=== PATIENT | female | born 1955 | race Caucasian/White ===

== ENCOUNTER 2019-11-02 12:09 | Emergency (ER) | payer MEDICARE, SELFPAY ==
--- NOTE | ~2019-11-02 | CT_ITS ---
EXAMINATION: CT abdomen pelvis w con EXAM DATE: 11/02/2019 13:08 INDICATION: Low abdominal pain. TECHNIQUE: Spiral CT of the abdomen and pelvis was performed following intravenous injection of 100 m L Omnipaque 350. Axial, coronal and sagittal images were reviewed. The dose-length product (DLP) fo r this examination was 176.49 mGy-cm. The exposure was tailored according to patient size (auto mA e xposure control), and iterative reconstruction (ASIR) was used as additional dose reduction technique . Comparison is made to prior examination from 04/28/2019. FINDINGS: There is subcentimeter left adrenal nodule likely adenoma. The liver, spleen, adrenal glan ds and pancreas are otherwise unremarkable. Gallbladder is unremarkable. No biliary obstruction. P ortal and splenic veins are patent. Kidneys enhance symmetrically. There is no hydronephrosis. Th e uterus is not identified and has likely been surgically resected. The bladder is unremarkable. Th ere is no retroperitoneal or pelvic lymphadenopathy. There is moderate scattered arteriosclerotic d isease. The appendix is normal. The stomach and small bowel are unremarkable. There is mild sigmoid colonic diverticulosis. There is no adjacent inflammatory change to suggest diverticulitis. There is expecte d amount of colonic stool. No free intraperitoneal gas. The heart is normal in size. There are n o pericardial or pleural effusions. Mild to moderate emphysema. There are no osteoblastic or osteol ytic lesions identified. IMPRESSION: 1. No acute intra-abdominal findings. Reviewed, dictated and finalized at location A.
[2019-11-02 12:13] VITALS: BP 164/83; PULSE 81; RESP 20; TEMP 37.3; O2SAT 97
--- NOTE | 2019-11-02 12:37 | ED.ABDPAIN ---
HPI - Abdominal Pain General Chief Complaint: Abdominal Pain <Justo Joseph PA-C - Last Filed: 11/02/19 14:09> Stated Complaint: abdominal pain x 4 days <Justo Joseph PA-C - Last Filed: 11/02/19 14:09> Time Seen by Provider: 11/02/19 12:10 <JORDAN Benavides Last Filed: 11/02/19 14:09> Source: patient <JORDAN Benavides Last Filed: 11/02/19 14:09> Mode of arrival: ambulatory <JORDAN Benavides Last Filed: 11/02/19 14:09> Limitations: no limitations <JORDAN Benavides Last Filed: 11/02/19 14:09> History of Present Illness HPI narrative: Patient is a 64-year-old female who presents to emergency department for evaluation of abdominal pain has been present for 3 weeks as a sharp intermittent cramping pain throughout is seen primary care and gastroenterology for this prescribed medicine for irritable bowel syndrome with no improvement nausea vomiting and on arrival is in the room. <Justo Joseph PA-C - Last Filed: 11/02/19 14:09> Related Data Home Medications: Home Medications Medication Instructions Recorded Confirmed atorvastatin 20 mg tablet 20 mg PO DAILY 05/15/19 <JORDAN Benavides Last Filed: 11/02/19 14:09> Allergies/Adverse Reactions: Allergies Allergy/AdvReac Type Severity Reaction Status Date / Time acetaminophen Allergy Nausea Verified 10/27/19 09:16 [From Darvocet-N] codeine Allergy Nausea Verified 10/27/19 09:16 gabapentin Allergy Loss of Verified 10/27/19 09:16 Balance propoxyphene Allergy Nausea Verified 10/27/19 09:16 [From Darvocet-N] <JORDAN Benavides Last Filed: 11/02/19 14:09> Review of Systems Review of Systems: All systems reviewed & are unremarkable except as noted in HPI and below <Justo Joseph PA-C - Last Filed: 11/02/19 14:09> PMFSH Past Medical History Medical History: Medical History Anxiety Arthritis 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 Bipolar 1 disorder Cataracts, bilateral Not yet extracted Chronic pancreatitis Chronic UTI Constipation COPD (chronic obstructive pulmonary disease) Depression Diverticulitis large intestine Emphysema, unspecified GERD (gastroesophageal reflux disease) Hepatitis C She stated was treated with injections History of alcohol dependence History of heroin abuse History of heroin abuse Hx of hepatitis C Hypercholesteremia Hypertension Pancreatitis PVD (peripheral vascular disease) SBO (small bowel obstruction) Schizo affective schizophrenia Seizures Due to abrupt withdrawal of clonazepam Tobacco dependence <Justo Joseph PA-C - Last Filed: 11/02/19 14:09> Surgical History Surgical History: Surgical History H/O laparoscopy History of colectomy With adhesiolysis History of colon resection History of hysterectomy Hx of hysterectomy Hx of tubal ligation <Justo Joseph PA-C - Last Filed: 11/02/19 14:09> Family History Family History: Family History (System 05/21/19 @ 16:37 by Katty Brownlee) Mother Carcinoma of colon Father Diabetes mellitus Cerebrovascular accident Father Family history of diabetes mellitus in first degree relative Hypertension Cerebrovascular accident Mother Family history of diabetes mellitus in first degree relative Colon polyp Carcinoma of colon Sibling Hypertension <Justo Joseph PA-C - Last Filed: 11/02/19 14:09> Social History Social History: Social History Social History: The patient stated that she is down to about 4 5 cigarettes a day. Patient stated she continues to smoke marijuana but is not on a daily basis anymore like it used to be. She denies any alcohol. She is to use heroin when she was younger. The patient was wi
[2019-11-02 12:38] LABS: Basophils Percent Auto 0.5 % (0.2-1.2); Eosinophils Absolute Auto 0.2 K/mm3 (0-0.3); Eosinophils Percent Auto 2.6 % (0-4.4); Hematocrit 39.4 % (37.0-47.0); Hemoglobin 12.8 g/dL (12.0-15.0); Immature Granulocyte Absolute 0.03 K/mm3 (0.00-0.031); Immature Granulocyte Percent A 0.4 % (0-0.5); Lymphocytes Absolute Auto 1.43 K/mm3 (0.9-3.2); Lymphocytes Percent Auto 17.9 % (18.3-44.2); Mean Corpuscular HGB Conc 32.5 g/dl (32-36); Mean Corpuscular Hemoglobin 27.3 pg (26-34); Mean Platelet Volume 10.7 fl (7.4-10.4); Monocytes Absolute Auto 0.7 K/mm3 (0.1-0.6); Monocytes Percent Auto 9.2 % (2.6-8.5); Neutrophils Absolute Auto 5.6 K/mm3 (1.3-6.7); Neutrophils Percent Auto 69.4 % (45.5-73.1); Platelet Count Result 223 k/mm3 (150-375); Red Blood Count 4.69 M/mm3 (4.2-5.4); Red Cell Distribution Width 13.6 % (11.5-14.5)
[2019-11-02] MEDS: SODIUM CHLORIDE 0.9% IV 1,000 ML 999 ML IV CONT (12:50)
[2019-11-02 12:51] LABS: Add Urine Microscopic? YES; Appearance Urine Clear (Clear); Bilirubin Urine Negative (Negative); Blood Urine Negative (Negative); Color Urine Straw (Yellow); Glucose Urine UA Negative (Negative); Ketones Urine Negative (Negative); Leukocyte Esterase Ur Trace LEU/UL (Negative); Mucus Urine Rare /lpf; Nitrate Urine Negative (Negative); Protein Urine Negative (Negative); Specific Grav Ur 1.012 (1.001-1.035); Squamous Epithelial Cell Urine Few /hpf (Few); Urobilinogen Urine Negative mg/dL (<2.0); WBC Urine 0-3 /hpf
[2019-11-02 12:52] LABS: Alanine Aminotransferase 15 U/L (4-35); Albumin Level 4.4 g/dL (3.5-5.1); Alkaline Phosphatase 72 U/L (38-126); Aspartate Amino Transferase 25 U/L (14-36); Bilirubin,Total 0.5 mg/dL (0.2-1.3); Blood Urea Nitrogen 19 mg/dL (7-17); Calcium 9.6 mg/dL (8.4-10.2); Carbon Dioxide 25 mmol/L (22-30); Chloride 101 mmol/L (98-107); Estimated CRCL calculation 49 ml/min; Estimated Glomerular Filt Rate > 60; Glucose 119 mg/dL (65-105); Lipase 56 U/L (23-300); Potassium 4.1 mmol/L (3.4-5.0); Sodium 134 mmol/L (137-145)
[2019-11-02] MEDS: FAMOTIDINE 20 MG/2 ML VIAL IV PUSH (12:54)
[2019-11-02 17:09] VITALS: BP 129/98; PULSE 73; RESP 20; TEMP 37.2; O2SAT 100
== END 2019-11-02 14:51 | disposition home or self-care (01) ==
PROVIDERS: Emergency Medicine Emergency Medical Services; Emergency Provider Emergency Medicine; PCP Family Medicine
DX: R10.9 Unspecified abdominal pain (principal); I10 Essential (primary) hypertension; M19.90 Unspecified osteoarthritis, unspecified site; J43.9 Emphysema, unspecified; K21.9 Gastro-esophageal reflux disease without esophagitis; Z86.19 Personal history of other infectious and parasitic diseases; E78.00 Pure hypercholesterolemia, unspecified; I73.9 Peripheral vascular disease, unspecified; F31.9 Bipolar disorder, unspecified; F41.9 Anxiety disorder, unspecified; H26.9 Unspecified cataract; F20.9 Schizophrenia, unspecified; F17.210 Nicotine dependence, cigarettes, uncomplicated; K86.1 Other chronic pancreatitis; Z90.49 Acquired absence of other specified parts of digestive tract
CPT/HCPCS: 36415; 74177; 80053; 81001; 83690; 85025; 96361; 96374; 96375; 99284; J2060; J7030; Q9967

== ENCOUNTER 2019-11-12 11:53 | Emergency (ER) | payer MEDICARE, SELFPAY ==
[2019-11-12 12:17] VITALS: BP 122/66; PULSE 85; RESP 16; TEMP 36.6; O2SAT 99
--- NOTE | 2019-11-12 12:53 | ED.GENADULT ---
HPI - General Adult General Chief complaint: Urogenital-Female Stated complaint: Abd pain; lower back pain Time Seen by Provider: 11/12/19 12:53 Source: patient and RN notes reviewed Mode of arrival: ambulatory Limitations: no limitations History of Present Illness HPI narrative: This is a 64 years old female presented office for evaluation lower abdominal pain and pressure for a few weeks. Pain is continue to get worse with foul odor. She called the on-call nurse line who prop her to come into urgent care to rule out kidney infection; while she is waiting to get a referral to see Urologist. I reviewed patient's recent visit at the ER: 11/02/2019. History of Present Illness HPI narrative: Patient is a 64-year-old female who presents to emergency department for evaluation of abdominal pain has been present for 3 weeks as a sharp intermittent cramping pain throughout is seen primary care and gastroenterology for this prescribed medicine for irritable bowel syndrome with no improvement nausea vomiting and on arrival is in the room. Related Data Home Medications Medication Instructions Recorded Confirmed atorvastatin [Lipitor] 20 mg PO DAILY 11/12/19 11/12/19 duloxetine [Cymbalta] 30 mg PO DAILY 11/12/19 11/12/19 famotidine [Pepcid] 20 mg PO BID 11/12/19 11/12/19 hydrochlorothiazide 12.5 mg PO DAILY 11/12/19 11/12/19 losartan 25 mg PO DAILY 11/12/19 11/12/19 melatonin 10 mg PO HS 11/12/19 11/12/19 naproxen [Naprosyn] 500 mg PO BID 11/12/19 11/12/19 trazodone 50 mg PO HS 11/12/19 11/12/19 Allergies Allergy/AdvReac Type Severity Reaction Status Date / Time acetaminophen Allergy Nausea Verified 11/12/19 12:36 [From Darvocet-N] codeine Allergy Nausea Verified 11/12/19 12:36 gabapentin Allergy Loss of Verified 11/12/19 12:36 Balance propoxyphene Allergy Nausea Verified 11/12/19 12:36 [From Darvocet-N] Review of Systems Review of Systems: Narrative: CONSTITUTIONAL: Denies fever ENT: Denies congestion CARDIOVASCULAR: Denies chest pain RESPIRATORY: Denies dyspnea GASTROINTESTINAL: Denies nausea, vomiting, diarrhea. Reports lower abdominal pain GENITOURINARY: Denies urinary symptoms or discharge. Reports foul odor. SKIN: Denies rash MUSCULOSKELETAL: Reports lower back pain NEUROLOGIC: Denies lightheaded All other systems reviewed are negative, except as documented in HPI. [facility] Past Medical History Medical History Anxiety Arthritis 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 Bipolar 1 disorder Cataracts, bilateral Not yet extracted Chronic pancreatitis Chronic UTI Constipation COPD (chronic obstructive pulmonary disease) Depression Diverticulitis large intestine Emphysema, unspecified GERD (gastroesophageal reflux disease) Hepatitis C She stated was treated with injections History of alcohol dependence History of heroin abuse History of heroin abuse Hx of hepatitis C Hypercholesteremia Hypertension Pancreatitis PVD (peripheral vascular disease) SBO (small bowel obstruction) Schizo affective schizophrenia Seizures Due to abrupt withdrawal of clonazepam Tobacco dependence Surgical History Surgical History H/O laparoscopy History of colectomy With adhesiolysis History of colon resection History of hysterectomy Hx of hysterectomy Hx of tubal ligation Family History Family History Mother Carcinoma of colon Father Diabetes mellitus Cerebrovascular accident Father Family history of diabetes mellitus in first degree relative Hypertension Cerebrovascular accident Mother Family history of diabetes mellitus in first degree relative Colon polyp Carcinoma of colon Sibling Hypertension Social History Social History Social History:
== END 2019-11-12 13:13 | disposition home or self-care (01) ==
PROVIDERS: Emergency Provider Nurse Practitioner
DX: R82.998 Other abnormal findings in urine (principal); F17.210 Nicotine dependence, cigarettes, uncomplicated; M19.90 Unspecified osteoarthritis, unspecified site; J44.9 Chronic obstructive pulmonary disease, unspecified; F32.9 Major depressive disorder, single episode, unspecified; K21.9 Gastro-esophageal reflux disease without esophagitis; Z86.19 Personal history of other infectious and parasitic diseases; E78.00 Pure hypercholesterolemia, unspecified; I10 Essential (primary) hypertension; I73.9 Peripheral vascular disease, unspecified
CPT/HCPCS: 81003; 87086; 87088; 87661; 99213; G0463

== ENCOUNTER 2020-01-18 14:18 | Emergency (ER) | payer MEDICARE, SELFPAY ==
--- NOTE | ~2020-01-18 | CT_ITS ---
EXAMINATION: CT abdomen pelvis w con DATE: 01/18/2020 15:36 INDICATION: Abdominal pain. TECHNIQUE: Computed tomography (CT) of the abdomen and pelvis was performed with 100 mL Omnipaque 350 intravenous contrast. Automated exposure control and iterative reconstruction technique were employe d. The dose-length product was 203.47 mGy-cm. COMPARISON: CT abdomen and pelvis 11/02/2019 FINDINGS: The visualized portions of the lung bases demonstrate emphysema and mild atelectasis. No pl eural effusion. The heart size is normal. No pericardial effusion. The liver, gallbladder, spleen, an d adrenal glands are normal. There are calcifications in the pancreas, consistent with chronic pancre atitis. There are cysts in the kidneys measuring up to 11 mm on the right. There is cortical thinning of the kidneys. There is diverticulosis of the colon without evidence of diverticulitis. There are n o dilated loops of bowel. The appendix is normal. There is calcified atherosclerosis of the aorta and many of the other arteries. There are no pathologically enlarged lymph nodes. There is trace pelvic ascites. There is subcutaneous fat stranding in the inferior buttocks, consistent with edema versus i nflammation. There is mild lumbar spondylosis. There is a chronic compression fracture of T11. IMPRESSION: 1. Subcutaneous fat stranding in the inferior buttocks, consistent with edema versus inflammation. Reviewed, dictated and finalized at location A. IMPRESSION: 1. Subcutaneous fat stranding in the inferior buttocks, consistent with edema v ersus inflammation.
[2020-01-18 14:29] VITALS: BP 144/59; PULSE 72; RESP 18; TEMP 36.3; O2SAT 99
--- NOTE | 2020-01-18 14:38 | ED.GENADULT ---
HPI - General Adult General Chief complaint: Abdominal Pain Stated complaint: abd pain Time Seen by Provider: 01/18/20 14:27 Source: patient History of Present Illness HPI narrative: Patient is a 64 y/o female complaining of generalized abdominal pain starting 2 days ago. She describes her pain as sharp and burning. She rates her pain as 8/10. Her pain radiates to her back. She took Ibuprofen, Bentyl and Prilosec without relief. She has no vomiting, diarrhea or dysuria. Related Data Home Medications Medication Instructions Recorded Confirmed atorvastatin [Lipitor] 20 mg PO DAILY 11/12/19 11/12/19 duloxetine [Cymbalta] 30 mg PO DAILY 11/12/19 11/12/19 famotidine [Pepcid] 20 mg PO BID 11/12/19 11/12/19 hydrochlorothiazide 12.5 mg PO DAILY 11/12/19 11/12/19 melatonin 10 mg PO HS 11/12/19 11/12/19 naproxen [Naprosyn] 500 mg PO BID 11/12/19 11/12/19 Allergies Allergy/AdvReac Type Severity Reaction Status Date / Time codeine Allergy Nausea Verified 01/18/20 14:50 gabapentin Allergy Loss of Verified 01/18/20 14:50 Balance propoxyphene Allergy Nausea Verified 01/18/20 14:50 [From NeetaMira] Review of Systems Constitutional: Constitutional: Denies chills, Denies fever(s), Denies headache(s) and Denies weakness Eyes: Eyes: Denies blurry vision ENT: Denies headache(s) and Denies neck pain Cardiovascular: Cardiovascular: Denies chest pain and Denies dyspnea Respiratory: Respiratory: Denies cough and Denies dyspnea Gastrointestinal: Gastrointestinal: Reports abdominal pain, Denies diarrhea, Denies nausea and Denies vomiting Genitourinary: Genitourinary: Denies hematuria and Denies dysuria Musculoskeletal: Musculoskeletal: Denies back pain and Denies neck pain Neurologic: Denies headache(s) and Denies weakness [facility] Past Medical History Medical History Anxiety Arthritis 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 Bipolar 1 disorder Cataracts, bilateral Not yet extracted Chronic pancreatitis Chronic UTI Constipation COPD (chronic obstructive pulmonary disease) Depression Diverticulitis large intestine Emphysema, unspecified GERD (gastroesophageal reflux disease) Hepatitis C She stated was treated with injections History of alcohol dependence History of heroin abuse History of heroin abuse Hx of hepatitis C Hypercholesteremia Hypertension Pancreatitis PVD (peripheral vascular disease) SBO (small bowel obstruction) Schizo affective schizophrenia Seizures Due to abrupt withdrawal of clonazepam Tobacco dependence Surgical History Surgical History H/O laparoscopy History of colectomy With adhesiolysis History of colon resection History of hysterectomy Hx of hysterectomy Hx of tubal ligation Family History Family History Mother Carcinoma of colon Father Diabetes mellitus Cerebrovascular accident Father Family history of diabetes mellitus in first degree relative Hypertension Cerebrovascular accident Mother Family history of diabetes mellitus in first degree relative Colon polyp Carcinoma of colon Sibling Hypertension Social History Social History Social History: The patient stated that she is down to about 4 5 cigarettes a day. Patient stated she continues to smoke marijuana but is not on a daily basis anymore like it used to be. She denies any alcohol. She is to use heroin when she was younger. The patient was with her youngest son. She is disabled. Her youngest son is shavon. The patient desires to be a full code. Smoking packs per day: 0.5 Smoking cigarettes per day: 10.0 Years smoked: 50 Smoking pack-years: 25.00 Smoking status: Current every day smoker Tobacco type: cigarettes Second hand tobacco smoke exposure: Yes Eulogio
[2020-01-18 14:54] LABS: Add Urine Microscopic? YES; Appearance Urine Clear (Clear); Bilirubin Urine Negative (Negative); Blood Urine Negative (Negative); Color Urine Yellow (Yellow); Glucose Urine UA Negative (Negative); Ketones Urine Negative (Negative); Leukocyte Esterase Ur 3+ LEU/UL (Negative); Mucus Urine Rare /lpf; Nitrate Urine Negative (Negative); Protein Urine Negative (Negative); RBC Urine 0-2 /hpf (0-2); Specific Grav Ur 1.014 (1.001-1.035); Squamous Epithelial Cell Urine Many /hpf (Few); Urobilinogen Urine Negative mg/dL (<2.0)
[2020-01-18 15:04] LABS: Basophils Percent Auto 0.8 % (0.2-1.2); Eosinophils Absolute Auto 0.1 K/mm3 (0-0.3); Eosinophils Percent Auto 2.8 % (0-4.4); Hematocrit 37.4 % (37.0-47.0); Hemoglobin 12.2 g/dL (12.0-15.0); Immature Granulocyte Absolute 0.02 K/mm3 (0.00-0.031); Immature Granulocyte Percent A 0.4 % (0-0.5); Lymphocytes Absolute Auto 1.28 K/mm3 (0.9-3.2); Lymphocytes Percent Auto 25.5 % (18.3-44.2); Mean Corpuscular HGB Conc 32.6 g/dl (32-36); Mean Corpuscular Hemoglobin 27.6 pg (26-34); Mean Corpuscular Volume 84.6 fl (80-100); Mean Platelet Volume 10.5 fl (7.4-10.4); Monocytes Absolute Auto 0.6 K/mm3 (0.1-0.6); Monocytes Percent Auto 11.8 % (2.6-8.5); Neutrophils Absolute Auto 2.9 K/mm3 (1.3-6.7); Neutrophils Percent Auto 58.7 % (45.5-73.1); Platelet Count Result 204 k/mm3 (150-375); Red Blood Count 4.42 M/mm3 (4.2-5.4); Red Cell Distribution Width 13.5 % (11.5-14.5)
[2020-01-18 15:15] LABS: Alanine Aminotransferase 14 U/L (4-35); Albumin Level 4.1 g/dL (3.5-5.1); Alkaline Phosphatase 65 U/L (38-126); Anion Gap 9 mmol/L (8-16); Aspartate Amino Transferase 21 U/L (14-36); Bilirubin,Total 1.2 mg/dL (0.2-1.3); Blood Urea Nitrogen 11 mg/dL (7-17); Calcium 9.2 mg/dL (8.4-10.2); Carbon Dioxide 22 mmol/L (22-30); Chloride 105 mmol/L (98-107); Estimated CRCL calculation 60 ml/min; Estimated Glomerular Filt Rate > 60; Glucose 77 mg/dL (65-105); Lipase 34 U/L (23-300); Potassium 3.6 mmol/L (3.4-5.0); Sodium 136 mmol/L (137-145)
[2020-01-18] MEDS: KETOROLAC 15 MG/ML VIAL (*BKC) IV PUSH (15:22)
[2020-01-18 15:24] VITALS: BP 133/79; PULSE 58; RESP 18; TEMP 36.7; O2SAT 98
[2020-01-18 16:26] VITALS: BP 136/71; PULSE 67; RESP 18; TEMP 36.7; O2SAT 99
[2020-01-18] MEDS: HYOSCYAMINE SULFATE 0.125 MG TABLET PO (16:54)
[2020-01-18 17:30] VITALS: BP 131/69; PULSE 62; RESP 19; TEMP 36.6; O2SAT 97
== END 2020-01-18 17:31 | disposition home or self-care (01) ==
PROVIDERS: Emergency Provider Emergency Medicine; PCP Family Medicine
DX: N39.0 Urinary tract infection, site not specified (principal); R10.84 Generalized abdominal pain; F17.210 Nicotine dependence, cigarettes, uncomplicated; F41.9 Anxiety disorder, unspecified; F32.9 Major depressive disorder, single episode, unspecified; M19.90 Unspecified osteoarthritis, unspecified site; H26.9 Unspecified cataract; J44.9 Chronic obstructive pulmonary disease, unspecified; K21.9 Gastro-esophageal reflux disease without esophagitis; Z86.19 Personal history of other infectious and parasitic diseases; E78.00 Pure hypercholesterolemia, unspecified; I10 Essential (primary) hypertension; I70.0 Atherosclerosis of aorta; I70.8 Atherosclerosis of other arteries
CPT/HCPCS: 36415; 74177; 80053; 81001; 83690; 85025; 87077; 87086; 87088; 96374; 99284; A9270; J1885; Q9967

== ENCOUNTER 2020-05-27 12:42 | Emergency (ER) | payer MEDICARE, SELFPAY ==
--- NOTE | ~2020-05-27 | CT_ITS ---
EXAMINATION: CT abdomen pelvis w con DATE: 05/27/2020 15:57 INDICATION: Abdominal pain. TECHNIQUE: Computed tomography (CT) of the abdomen and pelvis was performed with 100 mL Omnipaque 350 intravenous contrast. Automated exposure control and iterative reconstruction technique were employe d. The dose-length product was 181.66 mGy-cm. COMPARISON: CT abdomen and pelvis 02/17/2020 FINDINGS: The visualized portions of the lung bases demonstrate emphysema and mild atelectasis. There is mild bronchiectasis with mucous plugging in the lingula. No pleural effusion. The heart size is n ormal. There are coronary artery calcifications. No pericardial effusion. The liver, gallbladder, spl een, and adrenal glands are normal. There are calcifications in the pancreas, consistent with chronic pancreatitis. There is cortical thinning of the left kidney. There are cysts in the kidneys measurin g up to 10 mm on the right. There are no dilated loops of bowel. The appendix is normal. There are no pathologically enlarged lymph nodes. There is no free intraperitoneal fluid. Again seen is subcutane ous fat stranding in the inferior medial buttocks bilaterally, consistent with inflammation. There is moderate lumbar spondylosis. There is a chronic compression fracture of T11. IMPRESSION: 1. Subcutaneous fat stranding in the medial inferior buttocks bilaterally with interval improvement, consistent with inflammation. 2. Emphysema. Reviewed, dictated and finalized at location B. [employer]
[2020-05-27 12:44] VITALS: BP 148/116; PULSE 109; RESP 18; TEMP 36.9; O2SAT 98
[2020-05-27 13:03] LABS: Basophils Absolute Auto 0.1 K/mm3 (0.0-0.1); Basophils Percent Auto 0.9 % (0.2-1.2); Eosinophils Absolute Auto 0.2 K/mm3 (0-0.3); Eosinophils Percent Auto 3.6 % (0-4.4); Hematocrit 40.3 % (37.0-47.0); Immature Granulocyte Absolute 0.01 K/mm3 (0.00-0.031); Immature Granulocyte Percent A 0.1 % (0-0.5); Lymphocytes Absolute Auto 2.39 K/mm3 (0.9-3.2); Lymphocytes Percent Auto 35.7 % (18.3-44.2); Mean Corpuscular HGB Conc 32.3 g/dl (32-36); Mean Corpuscular Hemoglobin 27.6 pg (26-34); Mean Corpuscular Volume 85.6 fl (80-100); Mean Platelet Volume 10.4 fl (7.4-10.4); Monocytes Absolute Auto 0.5 K/mm3 (0.1-0.6); Monocytes Percent Auto 8.1 % (2.6-8.5); Neutrophils Absolute Auto 3.5 K/mm3 (1.3-6.7); Neutrophils Percent Auto 51.6 % (45.5-73.1); Platelet Count Result 212 k/mm3 (150-375); Red Blood Count 4.71 M/mm3 (4.2-5.4); Red Cell Distribution Width 13.7 % (11.5-14.5); White Blood Count 6.7 K/mm3 (4.5-10.0)
[2020-05-27 13:15] LABS: Alanine Aminotransferase 20 U/L (4-35); Albumin Level 4.1 g/dL (3.5-5.1); Alkaline Phosphatase 52 U/L (38-126); Anion Gap 10 mmol/L (8-16); Aspartate Amino Transferase 35 U/L (14-36); Bilirubin,Total 0.7 mg/dL (0.2-1.3); Blood Urea Nitrogen 9 mg/dL (7-17); Calcium 9.7 mg/dL (8.4-10.2); Carbon Dioxide 18 mmol/L (22-30); Chloride 108 mmol/L (98-107); Estimated CRCL calculation 52 ml/min; Estimated Glomerular Filt Rate > 60; Glucose 100 mg/dL (65-105); Lipase 39 U/L (23-300); Potassium 3.8 mmol/L (3.4-5.0); Sodium 136 mmol/L (137-145)
[2020-05-27 13:36] LABS: Add Urine Microscopic? YES; Appearance Urine Cloudy (Clear); Bilirubin Urine Negative (Negative); Blood Urine Negative (Negative); Color Urine Yellow (Yellow); Glucose Urine UA Negative (Negative); Ketones Urine Negative (Negative); Leukocyte Esterase Ur 3+ LEU/UL (Negative); Mucus Urine Rare /lpf; Nitrate Urine Negative (Negative); Protein Urine 1+ mg/dL (Negative); Specific Grav Ur 1.015 (1.001-1.035); Squamous Epithelial Cell Urine Many /hpf (Few); Urobilinogen Urine Negative mg/dL (<2.0); WBC Urine >75 /hpf
[2020-05-27 14:32] VITALS: BP 114/74; PULSE 77; RESP 16; O2SAT 98
[2020-05-27 15:05] VITALS: BP 114/83; PULSE 66; RESP 14; O2SAT 99
[2020-05-27] MEDS: FAMOTIDINE 20 MG/2 ML VIAL IV PUSH (15:17)
[2020-05-27] MEDS: ONDANSETRON INJ 4 MG/2 ML VIAL IV PUSH (15:17)
[2020-05-27] MEDS: SODIUM CHLORIDE 0.9% IV 1,000 ML 999 ML IV CONT (15:17)
--- NOTE | 2020-05-27 15:31 | ED.BACK ---
HPI - Back Pain/Injury General Chief Complaint: Back Pain/Injury Stated Complaint: Pain All Over, Back Pain Time Seen by Provider: 05/27/20 14:41 Source: patient and family Mode of arrival: ambulatory Limitations: no limitations History of Present Illness HPI Narrative: Patient 64-year-old female who presents to emergency department for evaluation of low back pain abdominal pain for the last week noting nausea patient has had history of diverticulitis in the past also urinary tract infection. Patient denies vomiting fever or other complaints presents with her son acutely anxious as well patient otherwise denies other illness complaint injury or trauma patient has been taking home medications with minimal improvement Related Data Home Medications Medication Instructions Recorded Confirmed atorvastatin [Lipitor] 20 mg PO DAILY 11/12/19 11/12/19 duloxetine [Cymbalta] 30 mg PO DAILY 11/12/19 11/12/19 famotidine [Pepcid] 20 mg PO BID 11/12/19 11/12/19 hydrochlorothiazide 12.5 mg PO DAILY 11/12/19 11/12/19 melatonin 10 mg PO HS 11/12/19 11/12/19 naproxen [Naprosyn] 500 mg PO BID 11/12/19 11/12/19 Allergies Allergy/AdvReac Type Severity Reaction Status Date / Time codeine Allergy Nausea Verified 01/18/20 14:50 gabapentin Allergy Loss of Verified 01/18/20 14:50 Balance propoxyphene Allergy Nausea Verified 01/18/20 14:50 [From Porter] Review of Systems Review of Systems: All systems reviewed & are unremarkable except as noted in HPI and below PMFSH Past Medical History Medical History (Updated 05/27/20 @ 16:42 by Justo Joseph PA-C) Anxiety Arthritis 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 Bipolar 1 disorder Cataracts, bilateral Not yet extracted Chronic pancreatitis Chronic UTI Constipation COPD (chronic obstructive pulmonary disease) Depression Diverticulitis large intestine Emphysema, unspecified GERD (gastroesophageal reflux disease) Hepatitis C She stated was treated with injections History of alcohol dependence History of heroin abuse History of heroin abuse Hx of hepatitis C Hypercholesteremia Hypertension Pancreatitis PVD (peripheral vascular disease) SBO (small bowel obstruction) Schizo affective schizophrenia Seizures Due to abrupt withdrawal of clonazepam Tobacco dependence Surgical History Surgical History H/O laparoscopy History of colectomy With adhesiolysis History of colon resection History of hysterectomy Hx of hysterectomy Hx of tubal ligation Family History Family History Mother Carcinoma of colon Father Diabetes mellitus Cerebrovascular accident Father Family history of diabetes mellitus in first degree relative Hypertension Cerebrovascular accident Mother Family history of diabetes mellitus in first degree relative Colon polyp Carcinoma of colon Sibling Hypertension Social History Social History Social History: The patient stated that she is down to about 4 5 cigarettes a day. Patient stated she continues to smoke marijuana but is not on a daily basis anymore like it used to be. She denies any alcohol. She is to use heroin when she was younger. The patient was with her youngest son. She is disabled. Her youngest son is shavon. The patient desires to be a full code. Smoking packs per day: 0.5 Smoking cigarettes per day: 10.0 Years smoked: 50 Smoking pack-years: 25.00 Smoking status: Current every day smoker Tobacco type: cigarettes Second hand tobacco smoke exposure: Yes Additional smoking assessment comments: She has smoked for over 40 years. Alcohol intake: never Substance use: current Substance use type: marijuana Gender identity (if verbalized by the patient): Female Spiritual care concerns: No Agree to blood products:
== END 2020-05-27 17:20 | disposition home or self-care (01) ==
PROVIDERS: Emergency Provider Emergency Medicine; Family Provider Internal Medicine; PCP Family Medicine
DX: N39.0 Urinary tract infection, site not specified (principal); I70.0 Atherosclerosis of aorta; I70.8 Atherosclerosis of other arteries; K86.1 Other chronic pancreatitis; H26.9 Unspecified cataract; J43.9 Emphysema, unspecified; Z86.19 Personal history of other infectious and parasitic diseases; E78.00 Pure hypercholesterolemia, unspecified; I10 Essential (primary) hypertension; I73.9 Peripheral vascular disease, unspecified; F20.9 Schizophrenia, unspecified; M19.90 Unspecified osteoarthritis, unspecified site; F31.9 Bipolar disorder, unspecified; F41.9 Anxiety disorder, unspecified; Z90.49 Acquired absence of other specified parts of digestive tract; F17.210 Nicotine dependence, cigarettes, uncomplicated
CPT/HCPCS: 36415; 74177; 80053; 81001; 83690; 85025; 87077; 87086; 87088; 96365; 96368; 96375; 99284; J0131; J0696; J2405; J7030; Q9967

== ENCOUNTER 2020-10-17 10:22 | Emergency (ER) | payer MEDICARE, SELFPAY ==
--- NOTE | ~2020-10-17 | XR_ITS ---
EXAMINATION: XR abdomen/kub 1V EXAM DATE: 10/17/2020 11:01 INDICATION: Constipation. TECHNIQUE: Frontal projection(s) of the abdomen for interpretation. Comparison is made to prior exami nation from 07/09/2012. FINDINGS: There is moderate to large amount of rectosigmoid colonic stool, moderate amount proximal t o this. No small bowel dilation, nonobstructive bowel gas pattern. There are no suspicious calcif ications identified. There is no organomegaly suspected. The bones are unremarkable. Lung bases unremarkable. IMPRESSION: Constipation, moderate to large amount of rectosigmoid stool. Reviewed, dictated and finalized at location A.
[2020-10-17 10:30] VITALS: BP 140/71; PULSE 77; RESP 16; TEMP 36.3; O2SAT 100
[2020-10-17 10:33] VITALS: BP 140/71; PULSE 77; RESP 16; TEMP 36.3; O2SAT 100
--- NOTE | 2020-10-17 10:54 | ED.ABDPAIN ---
HPI - Abdominal Pain General Chief Complaint: Abdominal Pain Stated Complaint: No Bowel Movement Time Seen by Provider: 10/17/20 10:50 Source: patient, RN notes reviewed and old records reviewed Mode of arrival: ambulatory Limitations: no limitations History of Present Illness HPI narrative: 65 year old female who presents to [facility] care with complaints of lower abdominal pain, back pain and pain in hips when she sits down. She reports that she has not had a bowel movement in 9-10 days and that she took an enema with only return of liquid solution. Patient states that she just completed antibiotic of Keflex for urinary tract infection an wonders if has cleared up has had frequent UTI's in the past few months. Patient states that she is nauseated but has bright no emesis, is drinking fluids well but appetite is decreased, Patient does have history of Hepatitis C and diverticulitis in the past. MD elicited complaint: abdominal pain Pertinent past history: constipation Onset (ago): day(s) (9) Pain Consistency: constant Location: pelvis and other (lower back) Severity: moderate Pain scale (0-10): 5 Quality: cramping and other (pressure) Relieving factors: nothing Treatments prior to arrival: other (tried fleets enema) Related Data Home Medications Medication Instructions Recorded Confirmed atorvastatin [Lipitor] 20 mg PO DAILY 11/12/19 10/17/20 duloxetine [Cymbalta] 30 mg PO DAILY 11/12/19 10/17/20 famotidine [Pepcid] 20 mg PO BID 11/12/19 10/17/20 hydrochlorothiazide 12.5 mg PO DAILY 11/12/19 10/17/20 melatonin 10 mg PO HS 11/12/19 10/17/20 naproxen [Naprosyn] 500 mg PO BID 11/12/19 10/17/20 cyclobenzaprine 10 mg PO TID 10/17/20 10/17/20 Allergies Allergy/AdvReac Type Severity Reaction Status Date / Time codeine Allergy Nausea Verified 10/17/20 10:29 gabapentin Allergy Loss of Verified 10/17/20 10:29 Balance propoxyphene Allergy Nausea Verified 10/17/20 10:29 [From Porter] Review of Systems Review of Systems: Narrative: CONSTITUTIONAL: Denies fever, chills, or sweats. EYES: Denies visual changes, redness, or discharge. ENT: Denies rhinorrhea, congestion, sore throat, or otalgia. CARDIOVASCULAR: Denies chest pain, palpitations, or edema. RESPIRATORY: Denies cough or dyspnea. GASTROINTESTINAL: positive for abdominal pain, nausea, no vomiting, or diarrhea, positive for constipation GENITOURINARY: Denies dysuria or hematuria,just finished antibiotic for UTI SKIN: Denies rash or itching. MUSCULOSKELETAL: Positive for lower back pain, joint pain, or myalgia. NEUROLOGIC: Denies headache, numbness, or weakness. PSYCHIATRIC: Positive history of anxiety or depression. All systems reviewed & are unremarkable except as noted in HPI and below PMFSH Past Medical History Medical History (Updated 10/18/20 @ 00:00 by Background Daemon) Anxiety Arthritis 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 Bipolar 1 disorder Cataracts, bilateral Not yet extracted Chronic pancreatitis Chronic UTI Constipation COPD (chronic obstructive pulmonary disease) Depression Diverticulitis large intestine Emphysema, unspecified GERD (gastroesophageal reflux disease) Hepatitis C She stated was treated with injections History of alcohol dependence History of heroin abuse History of heroin abuse Hx of hepatitis C Hypercholesteremia Hypertension Pancreatitis PVD (peripheral vascular disease) SBO (small bowel obstruction) Schizo affective schizophrenia Seizures Due to abrupt withdrawal of clonazepam Tobacco dependence Surgical History Surgical History H/O laparoscopy History of colectomy With adhesiolysis History of colon resection History of hysterectomy Hx of hysterectomy Hx of tubal ligation Family History Family History Mother Carcinoma of colon Father Diabetes mellitus Cerebrovascular ac
== END 2020-10-17 11:44 | disposition home or self-care (01) ==
PROVIDERS: Emergency Provider Registered Nurse; PCP Family Medicine
DX: K59.00 Constipation, unspecified (principal); F17.210 Nicotine dependence, cigarettes, uncomplicated; M19.90 Unspecified osteoarthritis, unspecified site; I70.0 Atherosclerosis of aorta; I70.209 Unspecified atherosclerosis of native arteries of extremities, unspecified extremity; H26.9 Unspecified cataract; J44.9 Chronic obstructive pulmonary disease, unspecified; K21.9 Gastro-esophageal reflux disease without esophagitis; E78.00 Pure hypercholesterolemia, unspecified; I10 Essential (primary) hypertension; F41.9 Anxiety disorder, unspecified; F32.9 Major depressive disorder, single episode, unspecified
CPT/HCPCS: 74018; 81003; 99213; G0463

== ENCOUNTER 2020-12-11 09:58 | Emergency (ER) | payer MEDICARE, SELFPAY ==
[2020-12-11 10:11] VITALS: BP 149/95; PULSE 84; RESP 18; TEMP 36.7; O2SAT 99
--- NOTE | 2020-12-11 10:32 | ED.GENADULT ---
HPI - General Adult General Chief complaint: Abdominal Pain Stated complaint: Abdominal Pain,Dizzy Time Seen by Provider: 12/11/20 10:20 Source: patient and RN notes reviewed Mode of arrival: ambulatory Limitations: no limitations History of Present Illness HPI narrative: Patient presents today with a 4-day history of severe fatigue, heartburn and abdominal burning with some mild dizziness, bilateral low back pain. Denies fever, nausea, vomiting, diarrhea, cough. Denies any current urinary symptoms to include dysuria, hematuria she takes Pepcid for GERD, but states it has not been working. Last bowel movement was today. Patient has been vaccinated against COVID-19. MD complaint: Abdominal burning, fatigue Related Data Home Medications Medication Instructions Recorded Confirmed atorvastatin [Lipitor] 20 mg PO DAILY 11/12/19 12/11/20 famotidine [Pepcid] 20 mg PO BID 11/12/19 12/11/20 hydrochlorothiazide 12.5 mg PO DAILY 11/12/19 12/11/20 melatonin 10 mg PO HS 11/12/19 12/11/20 naproxen [Naprosyn] 500 mg PO BID 11/12/19 12/11/20 Allergies Allergy/AdvReac Type Severity Reaction Status Date / Time codeine Allergy Nausea Verified 12/11/20 10:17 gabapentin Allergy Loss of Verified 12/11/20 10:17 Balance propoxyphene Allergy Nausea Verified 12/11/20 10:17 [From Porter] Review of Systems Review of Systems: CONSTITUTIONAL: Denies body aches, fever, chills, or sweats.+ Fatigue EYES: Denies visual changes, redness, or discharge. ENT: Denies rhinorrhea, congestion, sore throat, or otalgia. CARDIOVASCULAR: Denies chest pain, palpitations, or edema. RESPIRATORY: Denies cough or dyspnea. GASTROINTESTINAL: Denies nausea, vomiting, or diarrhea.+ Abdominal burning GENITOURINARY: Denies dysuria or hematuria. SKIN: Denies rash, itching, or wounds. MUSCULOSKELETAL: Denies joint pain, or myalgia.+ Back pain NEUROLOGIC: Denies headache, numbness, tingling, or weakness.+ Dizziness PSYCH: Denies depression or anxiety. [facility] Past Medical History Medical History (Updated 12/11/20 @ 11:04 by Sierra Orozco, RESIDENT DOCTOR, BC) Anxiety Arthritis 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 Bipolar 1 disorder Cataracts, bilateral Not yet extracted Chronic pancreatitis Chronic UTI Constipation COPD (chronic obstructive pulmonary disease) Depression Diverticulitis large intestine Emphysema, unspecified GERD (gastroesophageal reflux disease) Hepatitis C She stated was treated with injections History of alcohol dependence History of heroin abuse History of heroin abuse Hx of hepatitis C Hypercholesteremia Hypertension Pancreatitis PVD (peripheral vascular disease) SBO (small bowel obstruction) Schizo affective schizophrenia Seizures Due to abrupt withdrawal of clonazepam Tobacco dependence Surgical History Surgical History H/O laparoscopy History of colectomy With adhesiolysis History of colon resection History of hysterectomy Hx of hysterectomy Hx of tubal ligation Family History Family History Mother Carcinoma of colon Father Diabetes mellitus Cerebrovascular accident Father Family history of diabetes mellitus in first degree relative Hypertension Cerebrovascular accident Mother Family history of diabetes mellitus in first degree relative Colon polyp Carcinoma of colon Sibling Hypertension Social History Social History Social History: The patient stated that she is down to about 4 5 cigarettes a day. Patient stated she continues to smoke marijuana but is not on a daily basis anymore like it used to be. She denies any alcohol. She is to use heroin when she was younger. The patient was with her youngest son. She is disabled. Her youngest son is shavon. The patient desires to be a full code. Smoking pac
== END 2020-12-11 11:19 | disposition home or self-care (01) ==
PROVIDERS: Emergency Provider Nurse Practitioner; PCP Family Medicine
DX: K21.9 Gastro-esophageal reflux disease without esophagitis (principal); N30.00 Acute cystitis without hematuria; F17.210 Nicotine dependence, cigarettes, uncomplicated; M19.90 Unspecified osteoarthritis, unspecified site; I70.0 Atherosclerosis of aorta; H26.9 Unspecified cataract; J44.9 Chronic obstructive pulmonary disease, unspecified; E78.00 Pure hypercholesterolemia, unspecified; I10 Essential (primary) hypertension; F41.9 Anxiety disorder, unspecified
CPT/HCPCS: 81003; 87077; 87086; 87186; 87426; 99213; C9803; G0463

== ENCOUNTER 2020-12-30 10:07 | Emergency (ER) | payer MEDICARE, SELFPAY ==
[2020-12-30 10:28] VITALS: BP 135/93; PULSE 104; RESP 16; TEMP 36.4; O2SAT 98
--- NOTE | 2020-12-30 11:04 | ED.FEMALEGU ---
HPI - Female Genitourinary General Chief complaint: Urogenital-Female Stated complaint: Abdominal Pain Time Seen by Provider: 12/30/20 11:04 Source: patient Mode of arrival: ambulatory Limitations: no limitations History of Present Illness HPI Narrative: Winifred Petty is a 65-year-old female with a PMH of high cholesterol, GERD, high blood pressure, difficulty sleeping, chronic pain, who comes with recurrent by lateral flank pain and cramping and thinks it may be a possible UTI Related Data Home Medications Medication Instructions Recorded Confirmed atorvastatin [Lipitor] 20 mg PO DAILY 11/12/19 12/11/20 famotidine [Pepcid] 20 mg PO BID 11/12/19 12/11/20 hydrochlorothiazide 12.5 mg PO DAILY 11/12/19 12/11/20 melatonin 10 mg PO HS 11/12/19 12/11/20 naproxen [Naprosyn] 500 mg PO BID 11/12/19 12/11/20 Allergies Allergy/AdvReac Type Severity Reaction Status Date / Time codeine Allergy Nausea Verified 12/11/20 10:17 gabapentin Allergy Loss of Verified 12/11/20 10:17 Balance propoxyphene Allergy Nausea Verified 12/11/20 10:17 [From Porter] Review of Systems Review of Systems: CONSTITUTIONAL: Denies fever, chills, sweats. EYES: Denies visual changes, redness, discharge. ENT: Denies rhinorrhea, congestion, sore throat, otalgia. CARDIOVASCULAR: Denies chest pain, palpitations, edema. RESPIRATORY: Denies dyspnea, wheezing, cough GASTROINTESTINAL: Denies abdominal pain, nausea, vomiting, diarrhea. GENITOURINARY: Has dysuria, hematuria, abnormal discharge SKIN: Denies rash or itching. NEUROLOGIC: Denies numbness, or focal weakness. PSYCHIATRIC: Denies anxiety or depression. [facility] Past Medical History Medical History (Updated 12/30/20 @ 11:23 by Yue Shipley CNP) Anxiety Arthritis 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 Bipolar 1 disorder Cataracts, bilateral Not yet extracted Chronic pancreatitis Chronic UTI Constipation COPD (chronic obstructive pulmonary disease) Depression Diverticulitis large intestine Emphysema, unspecified GERD (gastroesophageal reflux disease) Hepatitis C She stated was treated with injections History of alcohol dependence History of heroin abuse History of heroin abuse Hx of hepatitis C Hypercholesteremia Hypertension Pancreatitis PVD (peripheral vascular disease) SBO (small bowel obstruction) Schizo affective schizophrenia Seizures Due to abrupt withdrawal of clonazepam Tobacco dependence Surgical History Surgical History H/O laparoscopy History of colectomy With adhesiolysis History of colon resection History of hysterectomy Hx of hysterectomy Hx of tubal ligation Family History Family History Mother Carcinoma of colon Father Diabetes mellitus Cerebrovascular accident Father Family history of diabetes mellitus in first degree relative Hypertension Cerebrovascular accident Mother Family history of diabetes mellitus in first degree relative Colon polyp Carcinoma of colon Sibling Hypertension Social History Social History Social History: The patient stated that she is down to about 4 5 cigarettes a day. Patient stated she continues to smoke marijuana but is not on a daily basis anymore like it used to be. She denies any alcohol. She is to use heroin when she was younger. The patient was with her youngest son. She is disabled. Her youngest son is shavon. The patient desires to be a full code. Smoking packs per day: 0.5 Smoking cigarettes per day: 10.0 Years smoked: 50 Smoking pack-years: 25.00 Smoking status: Current every day smoker Tobacco type: cigarettes Second hand tobacco smoke exposure: Yes Additional smoking assessment comments: She has smoked for over 40 years. Alcohol intake: never Substance use: current Substa
== END 2020-12-30 11:45 | disposition home or self-care (01) ==
PROVIDERS: Emergency Provider Nurse Practitioner
DX: N30.00 Acute cystitis without hematuria (principal); F17.210 Nicotine dependence, cigarettes, uncomplicated; M19.90 Unspecified osteoarthritis, unspecified site; H26.9 Unspecified cataract; K21.9 Gastro-esophageal reflux disease without esophagitis; Z86.19 Personal history of other infectious and parasitic diseases; E78.00 Pure hypercholesterolemia, unspecified; I10 Essential (primary) hypertension
CPT/HCPCS: 81003; 87077; 87086; 87088; 99213; G0463

== ENCOUNTER 2021-03-11 08:32 | Outpatient (CLI) | payer MEDICARE, SELFPAY ==
--- NOTE | ~2021-03-11 | CT_ITS ---
EXAMINATION: CT abdomen pelvis w con EXAM DATE: 03/11/2021 09:35 INDICATION: R19.5 - Other fecal abnormalities, abnormal: Amanuel test in January. Low abdominal pain. Nausea vomiting, constipation, weight loss. TECHNIQUE: Spiral CT of the abdomen and pelvis was performed following intravenous injection of 100 m L Omnipaque 350. Axial, coronal and sagittal images of the abdomen and pelvis were reviewed. The do se-length product (DLP) for this examination was 178.81 mGy-cm. The exposure was tailored according to patient size (auto mA exposure control), and iterative reconstruction (ASIR) was used as additiona l dose reduction technique. Comparison is made to prior examination from 05/27/2020. FINDINGS: Induration along the right buttocks inferomedially, evidence of skin thickening and some ed amauri. No abscess. The liver, spleen, adrenal glands and pancreas are unremarkable. Gallbladder is un remarkable. No biliary obstruction. Portal and splenic veins are patent. Kidneys enhance symmetric ally. There is no hydronephrosis. The uterus is not identified and has likely been surgically resec valeria. The bladder is unremarkable. There is no retroperitoneal or pelvic lymphadenopathy. There is moderate scattered arteriosclerotic disease. The appendix is normal. The stomach and small bowel are unremarkable. There is expected amount of c olonic stool, no focal wall thickening identified. There is mild scattered colonic diverticulosis. T here is no adjacent inflammatory change to suggest diverticulitis. No free intraperitoneal gas. Th e heart is normal in size. There are no pericardial or pleural effusions. Mild basilar emphysema. There are no osteoblastic or osteolytic lesions identified. IMPRESSION: 1. No suspicious abdomen or pelvis findings. 2. Mild emphysema. Reviewed, dictated and finalized at location A.
[2021-03-11 09:21] LABS: Estimated Glomerular Filt Rate > 60
== END 2021-03-11 08:33 | disposition home or self-care (01) ==
PROVIDERS: PCP Internal Medicine; Visit Provider Nurse Practitioner
DX: R19.5 Other fecal abnormalities (principal); R10.30 Lower abdominal pain, unspecified; J43.9 Emphysema, unspecified
CPT/HCPCS: 74177; Q9967

== ENCOUNTER 2021-04-14 09:55 | Emergency (ER) | payer MEDICARE, SELFPAY ==
--- NOTE | 2021-04-14 10:14 | PC.NURSE ---
in br to obtain ua spec.
[2021-04-14 10:16] VITALS: BP 143/74; PULSE 88; RESP 16; TEMP 37.5; O2SAT 98
--- NOTE | 2021-04-14 10:36 | ED.ABDPAIN ---
HPI - Abdominal Pain General Source: patient and RN notes reviewed Mode of arrival: ambulatory History of Present Illness HPI narrative: This is a 65-year-old female who presented to urgent care with complaints of pelvic pain in lower back pain that she has been having since. Patient took tramadol at home to relieve her pain she also notes that when she sits down her pain intensifies. Patient denies any hematuria, dysuria, SOB, CP, palpitation, extremity numbness, lightheadedness, dizziness, constipation, diarrhea, chills, or fever. Patient does have a history of a positive occult blood . She notes that she will need a colonoscopy for further diagnosis. MD elicited complaint: abdominal pain Related Data Home Medications Medication Instructions Recorded Confirmed atorvastatin [Lipitor] 20 mg PO DAILY 11/12/19 04/08/21 famotidine [Pepcid] 20 mg PO BID 11/12/19 04/08/21 dicyclomine 20 mg PO QID 04/08/21 04/08/21 cyclobenzaprine mg 04/14/21 trazodone 04/14/21 Allergies Allergy/AdvReac Type Severity Reaction Status Date / Time gabapentin AdvReac Severe Loss of Verified 04/08/21 15:32 Balance codeine AdvReac Mild Nausea Verified 04/08/21 15:32 propoxyphene AdvReac Mild Nausea Verified 04/08/21 15:32 [From Porter] COUNTS INCLUDE 234 BEDS AT THE [facility] Past Medical History Medical History (Updated 04/14/21 @ 10:58 by CHARLOTTE Blount-C) Anxiety Arthritis 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 Bipolar 1 disorder Cataracts, bilateral Not yet extracted Change in bowel function Chills Chronic pancreatitis Chronic UTI Constipation COPD (chronic obstructive pulmonary disease) Depression Difficulty breathing Difficulty sleeping Diverticulitis large intestine Dizziness Emphysema, unspecified GERD (gastroesophageal reflux disease) Hepatitis Hepatitis C She stated was treated with injections History of alcohol dependence History of heroin abuse History of heroin abuse Hot flashes Hx of hepatitis C Hypercholesteremia Hypertension Irritable bowel syndrome (IBS) Numbness Pancreatitis PVD (peripheral vascular disease) SBO (small bowel obstruction) Schizo affective schizophrenia Seizures Due to abrupt withdrawal of clonazepam Tobacco dependence Surgical History Surgical History H/O laparoscopy History of colectomy With adhesiolysis History of colon resection History of hysterectomy Hx of hysterectomy Hx of tubal ligation Family History Family History Mother Carcinoma of colon Cancer Diabetes mellitus Father Diabetes mellitus Cerebrovascular accident Hypertension Father Family history of diabetes mellitus in first degree relative Hypertension Cerebrovascular accident Mother Family history of diabetes mellitus in first degree relative Colon polyp Carcinoma of colon Sibling Hypertension Cancer Social History Social History (Updated 02/02/21 @ 13:04 by Deborah Damon CNA) Social History: The patient stated that she is down to about 4-5 cigarettes a day. Patient stated she continues to smoke marijuana but is not on a daily basis anymore like it used to be. She denies any alcohol. She formerly used heroin when she was younger. She is disabled. Her youngest son is Chase. The patient desires to be a full code. Smoking packs per day: 0.75 Smoking cigarettes per day: 15.0 Years smoked: 50 Smoking pack-years: 37.50 Smoking status: Current every day smoker Tobacco type: cigarettes Second hand tobacco smoke exposure: Yes Additional smoking assessment comments: She has smoked for over 40 years. Alcohol intake: former Alcohol use details: history of etoh dependence Substance use: former Substance use type: marijuana and heroin Other substance usage details: marijuana 3 times per week Additional living arrangements comments: son Chase lives with her
[2021-04-14] MEDS: KETOROLAC (*BKC) 60 MG/2 ML VIAL 30 MG IM (10:56)
[2021-04-14] MEDS: cefTRIAXone 1 GM VIAL IM (10:57)
--- NOTE | 2021-04-14 11:29 | PC.NURSE ---
was unable to scan lidocaine.
== END 2021-04-14 11:20 | disposition home or self-care (01) ==
PROVIDERS: Emergency Provider Nurse Practitioner; PCP Internal Medicine
DX: N10 Acute pyelonephritis (principal); F17.219 Nicotine dependence, cigarettes, with unspecified nicotine-induced disorders; F12.90 Cannabis use, unspecified, uncomplicated; M19.90 Unspecified osteoarthritis, unspecified site; J44.9 Chronic obstructive pulmonary disease, unspecified; K21.9 Gastro-esophageal reflux disease without esophagitis; E78.00 Pure hypercholesterolemia, unspecified; I10 Essential (primary) hypertension
CPT/HCPCS: 81003; 87077; 87086; 87088; 96372; 99214; G0463; J0696; J1885

== ENCOUNTER 2021-04-20 13:31 | Emergency (ER) | payer MEDICARE, SELFPAY ==
[2021-04-20 13:57] VITALS: BP 147/79; PULSE 72; RESP 16; TEMP 36.1; O2SAT 99
--- NOTE | 2021-04-20 18:29 | PC.NURSE ---
no answer from triage
== END 2021-04-20 18:29 | disposition left against medical advice (07) ==
LOC: ANHED 18:33
PROVIDERS: PCP Internal Medicine
DX: Z53.21 Procedure and treatment not carried out due to patient leaving prior to being seen by health care provider (principal)
CPT/HCPCS: 99199

== ENCOUNTER 2021-04-25 15:07 | Outpatient (CLI) | payer MEDICARE, SELFPAY | END 2021-04-25 15:08 | disposition home or self-care (01) | PROVIDERS: PCP Internal Medicine; Visit Provider Internal Medicine | DX: R30.0 Dysuria (principal) | CPT/HCPCS: 87077; 87086; 87186 ==

== ENCOUNTER 2021-07-13 10:49 | Emergency (ER) | payer MEDICARE, SELFPAY ==
[2021-07-13 10:56] VITALS: BP 156/75; PULSE 88; RESP 18; TEMP 36.5; O2SAT 100
[2021-07-13 11:59] LABS: Basophils Absolute Auto 0.1 K/mm3 (0.0-0.1); Eosinophils Absolute Auto 0.1 K/mm3 (0-0.3); Eosinophils Percent Auto 1.7 % (0-4.4); Hematocrit 43.4 % (37.0-47.0); Immature Granulocyte Absolute 0.01 K/mm3 (0.00-0.031); Immature Granulocyte Percent A 0.1 % (0-0.5); Lymphocytes Absolute Auto 1.59 K/mm3 (0.9-3.2); Lymphocytes Percent Auto 22.9 % (18.3-44.2); Mean Corpuscular HGB Conc 32.3 g/dl (32-36); Mean Corpuscular Hemoglobin 27.3 pg (26-34); Mean Corpuscular Volume 84.6 fl (80-100); Monocytes Absolute Auto 0.6 K/mm3 (0.1-0.6); Monocytes Percent Auto 8.5 % (2.6-8.5); Neutrophils Absolute Auto 4.6 K/mm3 (1.3-6.7); Neutrophils Percent Auto 65.8 % (45.5-73.1); Platelet Count Result 272 k/mm3 (150-375); Red Blood Count 5.13 M/mm3 (4.2-5.4); Red Cell Distribution Width 13.4 % (11.5-14.5)
[2021-07-13 12:05] LABS: Add Urine Microscopic? YES; Appearance Urine Clear (Clear); Bacteria Urine Trace /hpf; Bilirubin Urine Negative (Negative); Blood Urine Negative (Negative); Color Urine Yellow (Yellow); Glucose Urine UA Negative (Negative); Ketones Urine Negative (Negative); Leukocyte Esterase Ur 1+ LEU/UL (Negative); Nitrate Urine Negative (Negative); Protein Urine Negative (Negative); RBC Urine 0-2 /hpf (0-2); Specific Grav Ur 1.009 (1.001-1.035); Squamous Epithelial Cell Urine Few /hpf (Few); Urobilinogen Urine Negative mg/dL (<2.0)
--- NOTE | 2021-07-13 12:21 | ED.BACK ---
HPI - Back Pain/Injury General Chief Complaint: Back Pain/Injury Stated Complaint: back pain Time Seen by Provider: 07/13/21 12:07 Source: patient Mode of arrival: ambulatory Limitations: no limitations History of Present Illness HPI Narrative: Patient is a 66-year-old female complaining of lower back pain, 8 out of 10, sharp, radiating to bilateral hips that started approximately a week and a half ago. Patient states that she has history of chronic low back pain. Patient denies any injury. Patient denies any weakness, numbness, incontinence, urinary symptoms, fever or chills. Related Data Home Medications Medication Instructions Recorded Confirmed atorvastatin 07/13/21 dicyclomine mg 07/13/21 07/13/21 famotidine 07/13/21 losartan 07/13/21 trazodone 07/13/21 Allergies Allergy/AdvReac Type Severity Reaction Status Date / Time gabapentin AdvReac Severe Loss of Verified 07/13/21 11:29 Balance codeine AdvReac Mild Nausea Verified 07/13/21 11:29 propoxyphene AdvReac Mild Nausea Verified 07/13/21 11:29 [From NeetaMira] Review of Systems Review of Systems: All systems reviewed & are unremarkable except as noted in HPI and below Constitutional: Constitutional: Denies body ache(s), Denies chills, Denies excessive sweating, Denies fatigue, Denies fever(s), Denies headache(s), Denies lethargy, Denies malaise, Denies weakness and Denies weight loss Eyes: Eyes: Denies blurry vision, Denies change in vision and Denies loss of vision ENT: Denies dizziness, Denies ear discharge, Denies headache(s), Denies lip swelling, Denies epistaxis, Denies nasal congestion, Denies neck pain, Denies throat swelling and Denies tongue swelling Cardiovascular: Cardiovascular: Denies chest pain, Denies chest pain at rest, Denies chest pain with activity, Denies diaphoresis, Denies rapid heart rate, Denies edema, Denies irregular heart rhythm, Denies lightheadedness, Denies palpitations, Denies dyspnea and Denies dyspnea on exertion Respiratory: Respiratory: Denies chest congestion, Denies cough, Denies hemoptysis, Denies dyspnea and Denies dyspnea on exertion Gastrointestinal: Gastrointestinal: Denies abdominal pain, Denies melena, Denies hematochezia, Denies diarrhea, Denies nausea, Denies vomiting and Denies hematemesis Musculoskeletal: Musculoskeletal: Denies abnormal gait, Denies deformity, Denies joint swelling, Denies limited range of motion, Denies neck pain and Denies numbness Neurologic: Denies Abnormal speech present, Denies abnormal gait, Denies confusion, Denies dizziness, Denies headache(s), Denies focal weakness, Denies loss of vision, Denies numbness, Denies Other visual disturbances, Denies Sensory deficit (Neuro) and Denies weakness Psychiatric: Psychiatric: Denies confusion, Denies depression, Denies auditory hallucinations, Denies homicidal ideation and Denies suicidal ideation Endocrine: Endocrine: Denies cold intolerance, Denies excessive sweating, Denies fatigue, Denies heat intolerance and Denies palpitations Hematologic/Lymphatic: Hematologic/Lymphatic: Denies easy bleeding and Denies easy bruising Allergic/Immunologic: Allergic/Immunologic: Denies lip swelling, Denies throat swelling and Denies tongue swelling PMFSH Past Medical History Medical History Anxiety Arthritis 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 Bipolar 1 disorder Cataracts, bilateral Not yet extracted Change in bowel function Chills Chronic pancreatitis Chronic UTI Constipation COPD (chronic obstructive pulmonary disease) Depression Difficulty breathing Difficulty sleeping Diverticulitis large intestine Dizziness Emphysema, unspecified GERD (gastroesophageal reflux disease) Hepatitis Hepatitis C She stated was treated with injections History of alcohol dependence History of heroin abuse History of heroin abuse Hot flashes Hx of hepatitis C Hyperchole
[2021-07-13 12:23] LABS: Alanine Aminotransferase 22 U/L (4-35); Albumin Level 5.1 g/dL (3.5-5.1); Alkaline Phosphatase 76 U/L (38-126); Anion Gap 9 mmol/L (8-16); Aspartate Amino Transferase 34 U/L (14-36); Bilirubin,Total 0.8 mg/dL (0.2-1.3); Blood Urea Nitrogen 13 mg/dL (7-17); Calcium 9.9 mg/dL (8.4-10.2); Carbon Dioxide 26 mmol/L (22-30); Chloride 102 mmol/L (98-107); Estimated CRCL calculation 51 ml/min; Estimated Glomerular Filt Rate > 60; Glucose 95 mg/dL (65-110); Lipase 77 U/L (23-300); Potassium 4.2 mmol/L (3.4-5.0); Sodium 137 mmol/L (137-145)
[2021-07-13] MEDS: KETOROLAC 30 MG/ML VIAL (*BKC) IV PUSH (12:55)
[2021-07-13] MEDS: HYDROcodone/acetaminophen (*CRX) 5-325 MG TABLET 2 TAB PO (12:56)
[2021-07-13 12:59] VITALS: BP 141/98; PULSE 74; RESP 18; TEMP 37; O2SAT 98
[2021-07-13 14:20] VITALS: BP 166/78; PULSE 84; RESP 16; TEMP 37.2; O2SAT 98
== END 2021-07-13 14:31 | disposition home or self-care (01) ==
PROVIDERS: Emergency Medicine; Emergency Provider Emergency Medicine; PCP Internal Medicine
DX: N39.0 Urinary tract infection, site not specified (principal); M54.50 Low back pain, unspecified; F17.210 Nicotine dependence, cigarettes, uncomplicated; F41.9 Anxiety disorder, unspecified; M19.90 Unspecified osteoarthritis, unspecified site; F31.9 Bipolar disorder, unspecified; J44.9 Chronic obstructive pulmonary disease, unspecified; K21.9 Gastro-esophageal reflux disease without esophagitis
CPT/HCPCS: 36415; 51701; 80053; 81001; 83690; 85025; 96374; 96375; 99284; A9270; J1100; J1885

== ENCOUNTER 2021-07-26 10:44 | Outpatient (CLI) | payer MEDICARE, SELFPAY ==
--- NOTE | ~2021-07-26 | XR_ITS ---
XR lumbar spine 2-3V 07/26/2021 11:03 Indication: Low back pain. Procedure: 3 views lumbar spine Comparison: 06/06/2016 Findings: There is dextrocurvature of the lumbar spine. There is disc narrowing at all lumbar levels. There is mild superior endplate compression deformity of L2, chronic. No acute fracture, subluxation or dislocation. No evidence for spondylolisthesis. There is facet hypertrophy at L4-5 and L5-S1. Impression: 1: Mild-moderate lumbar spondylosis with dextroscoliosis. Reviewed, dictated and finalized at location A. Impression: 1: Mild-moderate lumbar spondylosis with dextroscoliosis.
[2021-07-26 12:04] LABS: Cholesterol 131 mg/dL (0-200); HDL Direct 54 mg/dL; Triglycerides 81 mg/dL (<150)
[2021-07-26 12:15] LABS: LDL Cholesterol Direct 53 mg/dL
== END 2021-07-26 10:45 | disposition home or self-care (01) ==
PROVIDERS: PCP Internal Medicine; Visit Provider Nurse Practitioner
DX: E78.5 Hyperlipidemia, unspecified (principal); M54.50 Low back pain, unspecified; M47.816 Spondylosis without myelopathy or radiculopathy, lumbar region; M41.86 Other forms of scoliosis, lumbar region
CPT/HCPCS: 36415; 72100; 80061

== ENCOUNTER 2021-08-09 12:39 | Outpatient (CLI) | payer MEDICARE, SELFPAY ==
--- NOTE | ~2021-08-09 | CT_ITS ---
EXAMINATION: CT lung screening DATE: 08/09/2021 13:07 INDICATION: Z72.0 - Tobacco use TECHNIQUE: Computed tomography (CT) of the chest was performed without intravenous contrast. Addition al 3D reconstructions utilizing coronal maximum intensity projection (MIP) were performed. Automated exposure control and iterative reconstruction technique were employed. The dose-length product was 63 .56 mGy-cm. COMPARISON: None FINDINGS: Moderate emphysema. Peripheral pleural parenchymal scarring at the apices of the lungs, mild on the l eft and moderate on the right. Small region with tiny, <3 mm centrilobular nodules and branching mucu s impacted bronchi in the lateral segment of the right middle lobe. There are a few additional scatte red <3 mm nodules in the bilateral upper lobes. No pneumonia, pulmonary edema or pleural effusion. He art size is normal. Atherosclerotic coronary artery calcification. Small calcific density in the hear t at the level of the tricuspid valve plane. No pericardial effusion. Thoracic aorta is normal in eric iber with scattered atherosclerotic calcification. No pathologically enlarged thoracic lymphadenopath y. Visualized upper abdomen is unremarkable. Moderate thoracic and severe lower cervical spondylosis. Chronic appearing T11 compression fracture w ith 20% anterior vertebral body height loss. IMPRESSION: 1. Lung-RADS category 2: Benign appearance or behavior. Continue annual screening with noncontrast lo w-dose chest CT in 12 months. 2. Moderate emphysema. Reviewed, dictated and finalized at location B. IMPRESSION: 1. Lung-RADS category 2: Benign appearance or behavior. Continue annual screeni ng with noncontrast low-dose chest CT in 12 months. 2. Moderate emphysema.
--- NOTE | ~2021-08-09 | MR_ITS ---
EXAMINATION: MR lumbar spine wo con DATE: 08/09/2021 13:57 INDICATION: Lumbar radiculopathy. TECHNIQUE: Magnetic resonance imaging (MRI) of the lumbar spine was performed without intravenous con trast. Sequences included sagittal T2-weighted FSE, sagittal T2-weighted FS FSE, sagittal T1-weighted FSE, and axial T2-weighted FSE. COMPARISON: Lumbar spine MRI 01/08/2018 FINDINGS: There is 7 degrees dextrocurvature of thoracolumbar spine. There is 3 mm anterolisthesis of L4 and L5 and L5 on S1. Vertebral body heights are normal. There is moderately decreased disc height at L1-L2 and mildly decreased disc height from L2-L3 through L5-S1. The distal spinal cord signal in tensity is normal. The conus medullaris is at L1. The following disc levels are specifically discusse d: L1-L2: The disc is bulging and has an annular fissure. There is mild bilateral facet joint osteoarthr itis. There is mild bilateral neural foraminal stenosis. There is mild central canal stenosis. L2-L3: The disc is bulging and has an annular fissure. There is moderate right and mild left facet piter int osteoarthritis. There is mild bilateral neural foraminal stenosis. There is mild central canal st enosis. L3-L4: The disc is bulging and has an annular fissure. There is severe bilateral facet joint osteoart hritis. There is mild bilateral neural foraminal stenosis. There is mild central canal stenosis. L4-L5: The disc is bulging and has an annular fissure. There is severe bilateral facet joint osteoart hritis. There is mild bilateral neural foraminal stenosis. There is mild central canal stenosis. L5-S1: The disc is bulging and has an annular fissure. There is severe bilateral facet joint osteoart hritis. There is mild bilateral neural foraminal stenosis. There is mild central canal stenosis. IMPRESSION: 1. Moderate lumbar spondylosis, worsened from 01/08/2018. Reviewed, dictated and finalized at location A.
--- NOTE | ~2021-08-09 | XR_ITS ---
EXAMINATION: XR_[id number]_CR EXAM DATE: 08/09/2021 13:11 INDICATION: No known recent injury provided at this time. Pain of the cervical spine. Cervicalgia. TECHNIQUE: Cervical spine frontal, lateral, open-mouth odontoid projections. There is no prior stud y for comparison. FINDINGS: There is moderate disc disease at C6-7. There is 2 mm anterolisthesis C5 on C6. There is m oderate cervical arthropathy. The odontoid process is intact. The lateral masses of C1 line up with C2. Prevertebral soft tissue and pre-dens space are within normal limits. There is aortic arterioscle rosis. IMPRESSION: Moderate cervical spondylosis and C5-6 disc disease. Reviewed, dictated and finalized at location A.
== END 2021-08-09 12:40 | disposition home or self-care (01) ==
PROVIDERS: PCP Internal Medicine; Visit Provider Internal Medicine
DX: Z12.2 Encounter for screening for malignant neoplasm of respiratory organs (principal); M54.16 Radiculopathy, lumbar region; Z87.891 Personal history of nicotine dependence; M47.812 Spondylosis without myelopathy or radiculopathy, cervical region; M50.922 Unspecified cervical disc disorder at C5-C6 level; J43.9 Emphysema, unspecified; M47.816 Spondylosis without myelopathy or radiculopathy, lumbar region
CPT/HCPCS: 71271; 72040; 72148

== ENCOUNTER 2021-08-31 00:56 | Day surgery (SDC) | payer MEDICARE, SELFPAY ==
[2021-08-24 13:37] VITALS: BMI 18.3
[2021-08-31 09:25] VITALS: BP 142/81; PULSE 102; RESP 18; TEMP 36.8; O2SAT 98; BMI 17.4
[2021-08-31] MEDS: LACTATED RINGERS 1,000 ML 150 ML IV CONT (09:52)
--- NOTE | 2021-08-31 10:43 | PM.HPGS ---
History of Present Illness History of Present Illness Consent: Risks, benefits, and alternatives have been discussed and questions answered. Patient agrees to proceed with procedure. Chief complaint: positive cologuard Narrative: Winifred Rodriguez is a 66 year old female here with positive cologuard, had colonoscopy more than 10 years ago. Review of Systems Constitutional: Constitutional: Denies headache(s) and Denies weakness Eyes: Eyes: Denies blurry vision ENT: Reports Normal hearing present, Denies headache(s) and Denies neck pain Cardiovascular: Cardiovascular: Denies chest pain and Denies dyspnea Respiratory: Respiratory: Denies dyspnea Gastrointestinal: Gastrointestinal: Reports no additional gastrointestinal complaints Genitourinary: Genitourinary: Denies dysuria Musculoskeletal: Musculoskeletal: Denies neck pain Integumentary/Breasts: Skin/Breast: Denies dry skin Neurologic: Reports Normal hearing present, Denies headache(s) and Denies weakness Psychiatric: Psychiatric: Denies anxiety Endocrine: Endocrine: Denies change in body appearance Hematologic/Lymphatic: Hematologic/Lymphatic: Denies easy bleeding Allergic/Immunologic: Allergic/Immunologic: Denies urticaria PMFSH Past Medical History Medical History Anxiety Arthritis 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 Bipolar 1 disorder Cataracts, bilateral Not yet extracted Change in bowel function Chills Chronic pancreatitis Chronic UTI Constipation COPD (chronic obstructive pulmonary disease) Depression Difficulty breathing Difficulty sleeping Diverticulitis large intestine Dizziness Emphysema, unspecified GERD (gastroesophageal reflux disease) Hepatitis Hepatitis C She stated was treated with injections History of alcohol dependence History of heroin abuse History of heroin abuse Hot flashes Hx of hepatitis C Hypercholesteremia Hypertension Irritable bowel syndrome (IBS) Numbness Pancreatitis PVD (peripheral vascular disease) SBO (small bowel obstruction) Schizo affective schizophrenia Seizures Due to abrupt withdrawal of clonazepam Tobacco dependence Surgical History Surgical History H/O laparoscopy History of colectomy With adhesiolysis History of colon resection History of hysterectomy Hx of hysterectomy Hx of tubal ligation Family History Family History Mother Carcinoma of colon Cancer Diabetes mellitus Father Diabetes mellitus Cerebrovascular accident Hypertension Father Family history of diabetes mellitus in first degree relative Hypertension Cerebrovascular accident Mother Family history of diabetes mellitus in first degree relative Colon polyp Carcinoma of colon Sibling Hypertension Cancer Social History Social History Social History: The patient stated that she is down to about 4-5 cigarettes a day. Patient stated she continues to smoke marijuana but is not on a daily basis anymore like it used to be. She denies any alcohol. She formerly used heroin when she was younger. She is disabled. Her youngest son is Chase. The patient desires to be a full code. Smoking packs per day: 1 Smoking cigarettes per day: 20.0 Years smoked: 50 Smoking pack-years: 50.00 Smoking status: Current every day smoker Tobacco type: cigarettes Second hand tobacco smoke exposure: Yes Additional smoking assessment comments: She has smoked for over 40 years. Alcohol intake: never Alcohol use details: history of etoh dependence Substance use: current Substance use type: marijuana Other substance usage details: 3x Daily Living arrangements: with family Additional living arrangements comments: son Chase lives with her Additional occupation
--- NOTE | 2021-08-31 10:47 | WPDANESEPPF ---
Anes - Initial Pre Proc Eval Procedure: Operation Date: 08/31/21 10:30 Proposed Procedures p Colonoscopy - Minor Rodriguez MD Date/Time: 08/31/21 10:47 Surgeon: Minor Rodriguez MD Pre Op Diagnosis: positive cologuard Patient Data Age: 66 Gender: F Height: 1.63 m Weight: 46.1 kg Last Vital Signs Temp 98.3 F 08/31/21 09:25 Pulse 102 H 08/31/21 09:25 Resp 18 08/31/21 09:25 BP 142/81 H 08/31/21 09:25 Pulse Ox 98 08/31/21 09:25 Allergies Allergy/AdvReac Type Severity Reaction Status Date / Time gabapentin AdvReac Severe Loss of Verified 08/31/21 09:38 Balance codeine AdvReac Mild Nausea Verified 08/31/21 09:38 propoxyphene AdvReac Mild Nausea Verified 08/31/21 09:38 [From [facility]] Home Medications Medication Instructions Recorded Confirmed Type atorvastatin 20 mg PO DAILY 07/13/21 08/31/21 History dicyclomine 20 mg PO DAILY 07/13/21 08/31/21 History trazodone 100 mg PO DAILY 07/13/21 08/31/21 History famotidine 20 mg tablet 20 mg PO DAILY #90 tablet 08/15/21 08/31/21 Rx losartan 25 mg tablet 25 mg PO DAILY #90 tablet 08/15/21 08/31/21 Rx tramadol 50 mg PO DAILY 08/24/21 08/31/21 History Patient hx anesthesia problems: none Family hx anesthesia problems: none Results Review: All pre-operative results and documents have been reviewed as part of the pre-operative evaluation. [facility] Past Medical History Medical History Anxiety Arthritis 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 Bipolar 1 disorder Cataracts, bilateral Not yet extracted Change in bowel function Chills Chronic pancreatitis Chronic UTI Constipation COPD (chronic obstructive pulmonary disease) Depression Difficulty breathing Difficulty sleeping Diverticulitis large intestine Dizziness Emphysema, unspecified GERD (gastroesophageal reflux disease) Hepatitis Hepatitis C She stated was treated with injections History of alcohol dependence History of heroin abuse History of heroin abuse Hot flashes Hx of hepatitis C Hypercholesteremia Hypertension Irritable bowel syndrome (IBS) Numbness Pancreatitis PVD (peripheral vascular disease) SBO (small bowel obstruction) Schizo affective schizophrenia Seizures Due to abrupt withdrawal of clonazepam Tobacco dependence Surgical History Surgical History H/O laparoscopy History of colectomy With adhesiolysis History of colon resection History of hysterectomy Hx of hysterectomy Hx of tubal ligation Family History Family History Mother Carcinoma of colon Cancer Diabetes mellitus Father Diabetes mellitus Cerebrovascular accident Hypertension Father Family history of diabetes mellitus in first degree relative Hypertension Cerebrovascular accident Mother Family history of diabetes mellitus in first degree relative Colon polyp Carcinoma of colon Sibling Hypertension Cancer Social History Social History Social History: The patient stated that she is down to about 4-5 cigarettes a day. Patient stated she continues to smoke marijuana but is not on a daily basis anymore like it used to be. She denies any alcohol. She formerly used heroin when she was younger. She is disabled. Her youngest son is Chase. The patient desires to be a full code. Smoking packs per day: 1 Smoking cigarettes per day: 20.0 Years smoked: 50 Smoking pack-years: 50.00 Smoking status: Current every day smoker Tobacco type: cigarettes Second hand tobacco smoke exposure: Yes Additional smoking assessment comments: She has smoked for over 40 years. Alcohol intake: never Alcohol use details: history of etoh dependence Substance use: current Substance use type: marijuana Othe
[2021-08-31 11:10] VITALS: BP 92/51; PULSE 69; RESP 19; O2SAT 99
[2021-08-31 11:20] VITALS: BP 135/75; PULSE 74; RESP 18; O2SAT 99
[2021-08-31 11:30] VITALS: BP 143/77; PULSE 76; RESP 32; O2SAT 100
== END 2021-08-31 12:27 | disposition home or self-care (01) ==
PROVIDERS: PCP Internal Medicine; Visit Provider Internal Medicine Gastroenterology
PROC: 0DJD8ZZ Inspection of Lower Intestinal Tract, Via Natural or Artificial Opening Endoscopic (ICD-10-PCS; CPT 45378; principal; 2021-08-31 10:30)
DX: R19.5 Other fecal abnormalities (principal); D12.2 Benign neoplasm of ascending colon; K63.5 Polyp of colon; K57.30 Diverticulosis of large intestine without perforation or abscess without bleeding; K64.8 Other hemorrhoids; I10 Essential (primary) hypertension; E78.00 Pure hypercholesterolemia, unspecified; K21.9 Gastro-esophageal reflux disease without esophagitis; F41.8 Other specified anxiety disorders; J44.9 Chronic obstructive pulmonary disease, unspecified; F31.9 Bipolar disorder, unspecified; I73.9 Peripheral vascular disease, unspecified; I25.10 Atherosclerotic heart disease of native coronary artery without angina pectoris; Z86.19 Personal history of other infectious and parasitic diseases; H26.9 Unspecified cataract; K58.9 Irritable bowel syndrome, unspecified; F25.9 Schizoaffective disorder, unspecified; Z90.49 Acquired absence of other specified parts of digestive tract; F17.210 Nicotine dependence, cigarettes, uncomplicated; F12.90 Cannabis use, unspecified, uncomplicated
CPT/HCPCS: 45380; 45385; 88305; J2704; J7120

== ENCOUNTER 2022-03-09 12:33 | Emergency (ER) | payer MEDICARE, SELFPAY ==
--- NOTE | ~2022-03-09 | XR_ITS ---
EXAMINATION: XR abdomen obstructive series DATE: 03/09/2022 13:34 INDICATION: Man pain. UTI. TECHNIQUE: Supine and upright views of the abdomen. FINDINGS: 10/17/2020 The visualized lung parenchyma is normal.. There is a nonobstructive bowel gas pattern. Gas and stool are seen throughout the colon to the level of the rectum. There is no free air. There is fecal load ing of the colon. There are splenic arterial calcifications. There is mild lumbar spondylosis with de xtroscoliosis. IMPRESSION: 1. No acute abdominal abnormality. Reviewed, dictated and finalized at location A.
[2022-03-09 12:47] VITALS: BP 152/78; PULSE 86; RESP 18; TEMP 36; O2SAT 100
--- NOTE | 2022-03-09 12:47 | ED.ABDPAIN ---
HPI - Abdominal Pain General Chief Complaint: Abdominal Pain Stated Complaint: Hip,Back Abdominal Pain Time Seen by Provider: 03/09/22 12:55 Source: patient Mode of arrival: ambulatory Limitations: no limitations History of Present Illness HPI narrative: Ms. Rodriguez is a 66-year-old female patient presenting to clinic today with complaints of generalized abdominal pain, back pain, hip pain x 2-3 days. She reports no fever. She is unaware if she has had any urinary symptoms. States that she has pain across her abdomen that is radiating in to the back and is also complaining of some left hip pain. Last bowel movement was today. Is feeling nauseous Related Data Home Medications Medication Instructions Recorded Confirmed trazodone 100 mg tablet 100 mg PO DAILY 07/13/21 03/09/22 Allergies Allergy/AdvReac Type Severity Reaction Status Date / Time gabapentin AdvReac Severe Loss of Verified 03/09/22 12:44 Balance codeine AdvReac Mild Nausea Verified 03/09/22 12:44 propoxyphene AdvReac Mild Nausea Verified 03/09/22 12:44 [From [facility]] Review of Systems Review of Systems: Pertinent positives per HPI. Patient denies any fever, chills, rash, headache, visual changes, dizziness, cough, runny nose, sore throat, shortness of breath, chest pain, palpitations, vomiting, diarrhea, constipation, abdominal pain, or any urinary issues. [facility] Past Medical History Medical History Anxiety Arthritis 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 Bipolar 1 disorder Cataracts, bilateral Not yet extracted Change in bowel function Chills Chronic pancreatitis Chronic UTI Constipation COPD (chronic obstructive pulmonary disease) Depression Difficulty breathing Difficulty sleeping Diverticulitis large intestine Dizziness Emphysema, unspecified GERD (gastroesophageal reflux disease) Hepatitis Hepatitis C She stated was treated with injections History of alcohol dependence History of heroin abuse History of heroin abuse Hot flashes Hx of hepatitis C Hypercholesteremia Hypertension Irritable bowel syndrome (IBS) Numbness Pancreatitis PVD (peripheral vascular disease) SBO (small bowel obstruction) Schizo affective schizophrenia Seizures Due to abrupt withdrawal of clonazepam Tobacco dependence Surgical History Surgical History H/O laparoscopy History of colectomy With adhesiolysis History of colon resection History of hysterectomy Hx of hysterectomy Hx of tubal ligation Family History Family History Mother Carcinoma of colon Cancer Diabetes mellitus Father Diabetes mellitus Cerebrovascular accident Hypertension Father Family history of diabetes mellitus in first degree relative Hypertension Cerebrovascular accident Mother Family history of diabetes mellitus in first degree relative Colon polyp Carcinoma of colon Sibling Hypertension Cancer Social History Social History Social History: The patient stated that she is down to about 4-5 cigarettes a day. Patient stated she continues to smoke marijuana but is not on a daily basis anymore like it used to be. She denies any alcohol. She formerly used heroin when she was younger. She is disabled. Her youngest son is Chase. The patient desires to be a full code. Smoking packs per day: 1 Smoking cigarettes per day: 20.0 Years smoked: 50 Smoking pack-years: 50.00 Smoking status: Current every day smoker Tobacco type: cigarettes Second hand tobacco smoke exposure: Yes Additional smoking assessment comments: She has smoked for over 40 years. Alcohol intake: never Alcohol use details: history of etoh dependence Substance use: current Substance use type: ma
== END 2022-03-09 14:13 | disposition home or self-care (01) ==
PROVIDERS: Emergency Provider Nurse Practitioner Family; PCP Internal Medicine
DX: N30.00 Acute cystitis without hematuria (principal); K59.00 Constipation, unspecified; F17.219 Nicotine dependence, cigarettes, with unspecified nicotine-induced disorders; F12.90 Cannabis use, unspecified, uncomplicated; M19.90 Unspecified osteoarthritis, unspecified site; I70.8 Atherosclerosis of other arteries; H26.9 Unspecified cataract; J44.9 Chronic obstructive pulmonary disease, unspecified; K21.9 Gastro-esophageal reflux disease without esophagitis; E78.00 Pure hypercholesterolemia, unspecified; I10 Essential (primary) hypertension; F32.A Depression, unspecified
CPT/HCPCS: 74019; 81003; 87077; 87086; 87186; 99213; G0463

== ENCOUNTER 2022-03-25 11:07 | Emergency (ER) | payer MEDICARE, SELFPAY ==
[2022-03-25 12:20] VITALS: BP 165/79; PULSE 71; RESP 16; TEMP 36.4; O2SAT 100
--- NOTE | 2022-03-25 12:51 | ED.GENADULT ---
HPI - General Adult General Chief complaint: Back Pain/Injury Stated complaint: lower back pain Time Seen by Provider: 03/25/22 12:51 Source: patient Mode of arrival: ambulatory Limitations: no limitations History of Present Illness HPI narrative: 66-year-old female patient presents to the [facility] with complaints of right-sided low back pain that started today. Patient states she went and sat down forward to pick something up and when she come back up she felt severe pain to her right side of her low back which caused her to actually collapse. Patient states she did take 2 ibuprofen prior to arrival today. Patient denies any numbness or tingling down the legs. Patient states she does have pain when trying to sit down. Related Data Home Medications Medication Instructions Recorded Confirmed trazodone 100 mg tablet 100 mg PO DAILY 07/13/21 03/25/22 Allergies Allergy/AdvReac Type Severity Reaction Status Date / Time gabapentin AdvReac Severe Loss of Verified 03/25/22 12:23 Balance codeine AdvReac Mild Nausea Verified 03/25/22 12:23 propoxyphene AdvReac Mild Nausea Verified 03/25/22 12:23 [From [facility]] Review of Systems Review of Systems: CONSTITUTIONAL: Denies fever, chills, or sweats. EYES: Denies visual changes, redness, or discharge. ENT: Denies rhinorrhea, congestion, sore throat, or otalgia. CARDIOVASCULAR: Denies chest pain, palpitations, or edema. RESPIRATORY: Denies cough or dyspnea. GASTROINTESTINAL: Denies abdominal pain, nausea, vomiting, or diarrhea. GENITOURINARY: Denies dysuria or hematuria. SKIN: Denies rash or itching. MUSCULOSKELETAL: Positive right-sided low back pain, denies joint pain, or myalgia. NEUROLOGIC: Denies headache, numbness, or weakness. PSYCHIATRIC: Denies anxiety or depression. [facility] Past Medical History Medical History Anxiety Arthritis 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 Bipolar 1 disorder Cataracts, bilateral Not yet extracted Change in bowel function Chills Chronic pancreatitis Chronic UTI Constipation COPD (chronic obstructive pulmonary disease) Depression Difficulty breathing Difficulty sleeping Diverticulitis large intestine Dizziness Emphysema, unspecified GERD (gastroesophageal reflux disease) Hepatitis Hepatitis C She stated was treated with injections History of alcohol dependence History of heroin abuse History of heroin abuse Hot flashes Hx of hepatitis C Hypercholesteremia Hypertension Irritable bowel syndrome (IBS) Numbness Pancreatitis PVD (peripheral vascular disease) SBO (small bowel obstruction) Schizo affective schizophrenia Seizures Due to abrupt withdrawal of clonazepam Tobacco dependence Surgical History Surgical History H/O laparoscopy History of colectomy With adhesiolysis History of colon resection History of hysterectomy Hx of hysterectomy Hx of tubal ligation Family History Family History Mother Carcinoma of colon Cancer Diabetes mellitus Father Diabetes mellitus Cerebrovascular accident Hypertension Father Family history of diabetes mellitus in first degree relative Hypertension Cerebrovascular accident Mother Family history of diabetes mellitus in first degree relative Colon polyp Carcinoma of colon Sibling Hypertension Cancer Social History Social History Social History: The patient stated that she is down to about 4-5 cigarettes a day. Patient stated she continues to smoke marijuana but is not on a daily basis anymore like it used to be. She denies any alcohol. She formerly used heroin when she was younger. She is disabled. Her youngest son is Chase. The patient desires to be a full code. Smoking packs per day: 1 Smoking ci
[2022-03-25] MEDS: KETOROLAC (*BKC) 60 MG/2 ML VIAL IM (13:05)
== END 2022-03-25 14:14 | disposition home or self-care (01) ==
PROVIDERS: Emergency Provider Nurse Practitioner Family; PCP Internal Medicine
DX: M54.41 Lumbago with sciatica, right side (principal); F17.210 Nicotine dependence, cigarettes, uncomplicated; M19.90 Unspecified osteoarthritis, unspecified site; H26.9 Unspecified cataract; J44.9 Chronic obstructive pulmonary disease, unspecified; F32.9 Major depressive disorder, single episode, unspecified; K21.9 Gastro-esophageal reflux disease without esophagitis; E78.00 Pure hypercholesterolemia, unspecified; Z86.19 Personal history of other infectious and parasitic diseases
CPT/HCPCS: 96372; 99213; G0463; J1885

== ENCOUNTER 2022-08-09 12:50 | Emergency (ER) | payer MEDICARE, SELFPAY ==
--- NOTE | 2022-08-09 12:51 | ED.FEMALEGU ---
HPI - Female Genitourinary General Chief complaint: Urogenital-Female Stated complaint: uti Time Seen by Provider: 08/09/22 12:51 Source: patient Mode of arrival: ambulatory Limitations: no limitations History of Present Illness HPI Narrative: Winifred is a 67-year-old female patient presenting to the clinic today with complaints of possible urinary tract infection, shortness of breath, and chest discomfort. She reports she is having some chest discomfort with breathing and having shortness of breath with grayish green phlegm. History of COPD and she is a tobacco user. Denies any fever or chills. States she is having some lower abdominal pain with burning, frequency, and urgency and with urination. Related Data Home Medications Medication Instructions Recorded Confirmed trazodone 100 mg tablet 100 mg PO DAILY 07/13/21 08/09/22 Allergies Allergy/AdvReac Type Severity Reaction Status Date / Time gabapentin AdvReac Severe Loss of Verified 07/04/22 09:31 Balance codeine AdvReac Mild Nausea Verified 07/04/22 09:31 propoxyphene AdvReac Mild Nausea Verified 07/04/22 09:31 [From [facility]] Review of Systems Review of Systems: Pertinent positives per HPI. Patient denies any fever, chills, rash, headache, visual changes, dizziness, cough, runny nose, sore throat, shortness of breath, chest pain, palpitations, nausea, vomiting, diarrhea, constipation, or any abdominal pain. [facility] Past Medical History Medical History Anxiety Arthritis 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 Bipolar 1 disorder Cataracts, bilateral Not yet extracted Change in bowel function Chills Chronic pancreatitis Chronic UTI Constipation COPD (chronic obstructive pulmonary disease) COVID-19 Depression Difficulty breathing Difficulty sleeping Diverticulitis large intestine Dizziness Emphysema, unspecified GERD (gastroesophageal reflux disease) Hepatitis Hepatitis C She stated was treated with injections History of alcohol dependence History of heroin abuse History of heroin abuse Hot flashes Hx of hepatitis C Hypercholesteremia Hypertension Irritable bowel syndrome (IBS) Numbness Pancreatitis PVD (peripheral vascular disease) SBO (small bowel obstruction) Schizo affective schizophrenia Seizures Due to abrupt withdrawal of clonazepam Tobacco dependence Surgical History Surgical History H/O laparoscopy History of colectomy With adhesiolysis History of colon resection History of hysterectomy Hx of hysterectomy Hx of tubal ligation Family History Family History Mother Carcinoma of colon Cancer Diabetes mellitus Father Diabetes mellitus Cerebrovascular accident Hypertension Father Family history of diabetes mellitus in first degree relative Hypertension Cerebrovascular accident Mother Family history of diabetes mellitus in first degree relative Colon polyp Carcinoma of colon Sibling Hypertension Cancer Social History Social History Social History: The patient stated that she is down to about 4-5 cigarettes a day. Patient stated she continues to smoke marijuana but is not on a daily basis anymore like it used to be. She denies any alcohol. She formerly used heroin when she was younger. She is disabled. Her youngest son is Chase. The patient desires to be a full code. Smoking packs per day: 1 Smoking cigarettes per day: 20.0 Years smoked: 50 Smoking pack-years: 50.00 Smoking status: Current every day smoker Tobacco type: cigarettes Second hand tobacco smoke exposure: Yes Additional smoking assessment comments: She has smoked for over 40 years. Alcohol intake: never Alcohol use details: history of etoh dependence
[2022-08-09 13:03] VITALS: BP 167/81; PULSE 81; RESP 16; TEMP 36.5; O2SAT 100
--- NOTE | 2022-08-09 13:05 | ECG_ITS ---
Measurements Intervals [place] Rate: 71 P: 77 AK: 151 QRS: 66 QRSD: 90 T: 118 QT: 359 QTc: 392 Interpretive Statements SINUS RHYTHM RIGHT ATRIAL ENLARGEMENT [0.3mV P WAVE] POSSIBLE LEFT ATRIAL ENLARGEMENT [-0.1mV P WAVE IN V1/V2] LEFT VENTRICULAR HYPERTROPHY AND ST-T CHANGE [VOLTAGE CRITERIA PLUS ST/T ABNORMALITY] ABNORMAL ECG NO PREVIOUS ECG AVAILABLE FOR COMPARISON Electronically Signed On 08-09-2022 13:54:42 CDT by Marcus Sigala M.D.
== END 2022-08-09 13:35 | disposition home or self-care (01) ==
PROVIDERS: Emergency Provider Nurse Practitioner Family
DX: J44.1 Chronic obstructive pulmonary disease with (acute) exacerbation (principal); N30.00 Acute cystitis without hematuria; R94.31 Abnormal electrocardiogram [ECG] [EKG]; F17.210 Nicotine dependence, cigarettes, uncomplicated; F12.90 Cannabis use, unspecified, uncomplicated; M19.90 Unspecified osteoarthritis, unspecified site; H26.9 Unspecified cataract; Z86.16 Personal history of COVID-19; K21.9 Gastro-esophageal reflux disease without esophagitis; Z86.19 Personal history of other infectious and parasitic diseases; E78.00 Pure hypercholesterolemia, unspecified; I10 Essential (primary) hypertension; I73.9 Peripheral vascular disease, unspecified; F32.A Depression, unspecified
CPT/HCPCS: 81003; 87086; 93005; 99213; G0463

== ENCOUNTER 2022-11-04 09:55 | Emergency (ER) | payer MEDICARE, SELFPAY ==
[2022-11-04 10:09] VITALS: BP 130/79; PULSE 75; RESP 16; TEMP 37.1; O2SAT 97
--- NOTE | 2022-11-04 10:32 | ED.BACK ---
HPI - Back Pain/Injury General Chief Complaint: Back Pain/Injury Stated Complaint: hip and lower pack pain left side Time Seen by Provider: 11/04/22 10:32 Source: patient Mode of arrival: ambulatory Limitations: no limitations History of Present Illness HPI Narrative: 67-year-old female presents with complaint of lower back pain, lower abdominal cramping, urinary frequency, bladder pressure, foul smelling urine for the past 5 days. Afebrile. Patient concerned she has urinary tract infection. All Systems reviewed and negative except as noted above. Related Data Home Medications Medication Instructions Recorded Confirmed trazodone 100 mg tablet 100 mg PO DAILY 07/13/21 08/09/22 Allergies Allergy/AdvReac Type Severity Reaction Status Date / Time gabapentin AdvReac Severe Loss of Verified 11/04/22 09:59 Balance codeine AdvReac Mild Nausea Verified 11/04/22 09:59 propoxyphene AdvReac Mild Nausea Verified 11/04/22 09:59 [From [facility]] Review of Systems Review of Systems: CONSTITUTIONAL: Denies fever, chills, or sweats. EYES: Denies visual changes, redness, or discharge. ENT: Denies rhinorrhea, congestion, sore throat, or otalgia. CARDIOVASCULAR: Denies chest pain, palpitations, or edema. RESPIRATORY: Denies cough or dyspnea. GASTROINTESTINAL: Reports abdominal pain. Denies nausea, vomiting, or diarrhea. GENITOURINARY: reports dysuria, frequency, foul-smelling urine. Denies hematuria. SKIN: Denies rash or itching. MUSCULOSKELETAL: reports back pain. Denies joint pain, or myalgia. NEUROLOGIC: Denies headache, numbness, or weakness. PSYCHIATRIC: Denies anxiety or depression. All other systems reviewed are negative, except as documented in HPI. [facility] Past Medical History Medical History Anxiety Arthritis 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 Bipolar 1 disorder Cataracts, bilateral Not yet extracted Change in bowel function Chills Chronic pancreatitis Chronic UTI Constipation COPD (chronic obstructive pulmonary disease) COVID-19 Depression Difficulty breathing Difficulty sleeping Diverticulitis large intestine Dizziness Emphysema, unspecified GERD (gastroesophageal reflux disease) Hepatitis Hepatitis C She stated was treated with injections History of alcohol dependence History of heroin abuse History of heroin abuse Hot flashes Hx of hepatitis C Hypercholesteremia Hypertension Irritable bowel syndrome (IBS) Numbness Pancreatitis PVD (peripheral vascular disease) SBO (small bowel obstruction) Schizo affective schizophrenia Seizures Due to abrupt withdrawal of clonazepam Tobacco dependence Surgical History Surgical History H/O laparoscopy History of colectomy With adhesiolysis History of colon resection History of hysterectomy Hx of hysterectomy Hx of tubal ligation Family History Family History Mother Carcinoma of colon Cancer Diabetes mellitus Father Diabetes mellitus Cerebrovascular accident Hypertension Father Family history of diabetes mellitus in first degree relative Hypertension Cerebrovascular accident Mother Family history of diabetes mellitus in first degree relative Colon polyp Carcinoma of colon Sibling Hypertension Cancer Social History Social History Social History: The patient stated that she is down to about 4-5 cigarettes a day. Patient stated she continues to smoke marijuana but is not on a daily basis anymore like it used to be. She denies any alcohol. She formerly used heroin when she was younger. She is disabled. Her youngest son is Chase. The patient desires to be a full code. Smoking packs per day: 1 Smoking cigarettes per day: 20.0 Years s
== END 2022-11-04 10:56 | disposition home or self-care (01) ==
PROVIDERS: Emergency Provider Nurse Practitioner Family; PCP Internal Medicine
DX: N39.0 Urinary tract infection, site not specified (principal); F17.210 Nicotine dependence, cigarettes, uncomplicated; F12.90 Cannabis use, unspecified, uncomplicated; H26.9 Unspecified cataract; J44.9 Chronic obstructive pulmonary disease, unspecified; K21.9 Gastro-esophageal reflux disease without esophagitis; E78.00 Pure hypercholesterolemia, unspecified; I10 Essential (primary) hypertension; F41.9 Anxiety disorder, unspecified; F32.A Depression, unspecified; I70.0 Atherosclerosis of aorta; I70.8 Atherosclerosis of other arteries; Z86.16 Personal history of COVID-19
CPT/HCPCS: 81003; 87086; 99213; G0463

== ENCOUNTER 2023-01-19 10:59 | Outpatient (CLI) | payer MEDICARE, SELFPAY ==
--- NOTE | ~2023-01-19 | XR_ITS ---
EXAMINATION: XR abdomen obstructive series DATE: 01/19/2023 11:25 INDICATION: Lower abdominal pain TECHNIQUE: Upright and supine views of the abdomen were obtained. COMPARISON: 03/09/2022 FINDINGS: There is no free intraperitoneal gas. The bowel gas pattern is normal. No dilated loops of bowel are identified. There are phleboliths of the pelvis. The visualized lung bases are clear. IMPRESSION: 1. No radiographic correlate for the patient's symptoms. Reviewed, dictated and finalized at location F.
--- NOTE | ~2023-01-19 | CT_ITS ---
EXAMINATION: CT lung screening DATE: 01/19/2023 11:16 INDICATION: Personal history of nicotine dependence TECHNIQUE: Computed tomography (CT) of the chest was performed without intravenous contrast. The dose -length product was 65.27 mGy-cm. Automated exposure control and iterative reconstruction technique w ere employed. COMPARISON: CT dated 08/09/2021 FINDINGS: Heart size normal. No significant pleural or pericardial effusion. There is atherosclerosis of the aorta and coronary arteries. No thoracic lymphadenopathy. There is emphysema. There is apical pleural thickening/scarring. There are reticulonodular densities measuring 3 mm or less. Mild thorac ic spondylosis. Mild superior endplate compression deformity of T11 which appears chronic. IMPRESSION: 1. Lung-RADS category 2: Benign appearance or behavior. Continue annual screening with noncontrast lo w-dose chest CT in 12 months. Reviewed, dictated and finalized at location B. IMPRESSION: 1. Lung-RADS category 2: Benign appearance or behavior. Continue annual screeni ng with noncontrast low-dose chest CT in 12 months.
== END 2023-01-19 11:00 | disposition home or self-care (01) ==
PROVIDERS: PCP Family Medicine; Visit Provider Family Medicine
DX: Z12.2 Encounter for screening for malignant neoplasm of respiratory organs (principal); F17.210 Nicotine dependence, cigarettes, uncomplicated; R10.9 Unspecified abdominal pain
CPT/HCPCS: 71271; 74019

== ENCOUNTER 2023-05-09 11:14 | Outpatient (CLI) | payer MEDICARE, SELFPAY ==
--- NOTE | ~2023-05-09 | XR_ITS ---
Lumbosacral Spine: AP and lateral views Clinical History: Pain Findings: The normal lordotic curve is maintained. No fracture identified. There is minimal grade 1 r etrolisthesis of L2 over L3. There is minimal grade 1 anterolisthesis of L4 over L5. There is mild to moderate facet arthropathy from L3 through S1. The sacroiliac joints are normally outlined. Impression: Minimal grade 1 retrolisthesis of L2 over L3. Minimal grade 1 anterolisthesis of L4 over L5. Facet arthropathy, as above. Reviewed, dictated and finalized at location M. DER Impression: Minimal grade 1 retrolisthesis of L2 over L3. Minimal grade 1 anterolisthesis of L4 over L5. Facet arthropathy, as above.
--- NOTE | ~2023-05-09 | XR_ITS ---
AP view of the pelvis and AP and lateral views of the left hip Clinical history: Pain Findings: No acute fracture or dislocation is seen. Osseous alignment is anatomic. Bilateral hip and SI joint spaces are preserved. Soft tissues are unremarkable. Impression: No significant abnormality is seen. Reviewed, dictated and finalized at [facility]. 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
== END 2023-05-09 11:15 | disposition home or self-care (01) ==
PROVIDERS: PCP Family Medicine; Visit Provider Family Medicine
DX: M43.16 Spondylolisthesis, lumbar region (principal); M47.897 Other spondylosis, lumbosacral region; G89.29 Other chronic pain
CPT/HCPCS: 72100; 73502

== ENCOUNTER 2023-10-26 13:43 | Emergency (ER) | payer MEDICARE, SELFPAY ==
--- NOTE | ~2023-10-26 | CT_ITS ---
EXAMINATION: CT abdomen pelvis w con DATE: 10/26/2023 15:06 INDICATION: Left lower quadrant abdominal pain TECHNIQUE: Computed tomography (CT) of the abdomen and pelvis was performed with 100 mL Omnipaque-350 intravenous contrast. Automated exposure control and iterative reconstruction technique were employe d. The dose-length product was 184.18 mGy-cm. COMPARISON: CT abdomen and pelvis dated 03/11/2021 FINDINGS: Moderate emphysema at the lung bases. Heart size is normal. No pericardial or pleural effusion. Very small sliding-type hiatal hernia. Liver, gallbladder, spleen and bilateral adrenal glands are normal. There is dilation of the main pancreatic duct which measures up to 5 mm the level of the body the pa ncreas. There are a few scattered dystrophic calcifications throughout the pancreas which along with the ductal dilation is likely sequela of chronic pancreatitis. There are multiple small bilateral carmen al cysts the largest measuring up to 1.4 cm the right kidney. Again seen are multiple diverticula sig moid colon predominance. There is segmental edematous wall thickening and some inflammatory stranding at the proximal sigmoid colon consistent with diverticulitis. Small bowel and appendix are normal. B ladder is normal. The uterus is not identified and has likely been surgically resected. No abscess or free intraperitoneal gas or fluid. No pathologically enlarged abdominal or pelvic lymphadenopathy. T here is calcified atherosclerosis of the normal caliber abdominal aorta and many of the other arterie s. Mild lumbar levocurvature with mild spondylosis. IMPRESSION: 1. Radiographically uncomplicated sigmoid diverticulitis. 2. Moderate emphysema. 3. Pancreatic ductal dilation with scattered dystrophic calcific lesions consistent with sequela of c hronic pancreatitis. Reviewed, dictated and finalized at location A. IMPRESSION: 1. Radiographically uncomplicated sigmoid diverticulitis. 2. Moderate emphysema. 3. Pancreatic ductal dilation with scattered dystrophic calcific lesions consis tent with sequela of chronic pancreatitis.
[2023-10-26 13:46] VITALS: BP 159/89; PULSE 80; RESP 16; TEMP 38.2; O2SAT 98
--- NOTE | 2023-10-26 14:09 | ED.ABDPAIN ---
HPI - Abdominal Pain General Chief Complaint: Abdominal Pain Stated Complaint: abd pain Time Seen by Provider: 10/26/23 13:54 Source: patient Mode of arrival: ambulatory Limitations: no limitations History of Present Illness HPI narrative: Patient presents with report of left lower quadrant pain for the past 2 Days. She has been constipated for a few weeks and states that she had a telehealth visit and was advised to use stool softeners and suppositories and given prescriptions for MiraLax, antibiotics, steroids, and fiber which she has been trialing with minimal relief. She states she her last real bowel movement was several days ago and she only produces small tarry black stools in the interim. She states she has a history of diverticulitis but does not believe it was complicated by abscess, perforation, etc.. Her last colonoscopy was approximately 2 years ago by report. Her symptoms are associated with nausea and some vomiting although she states it was more like dry heaving today. She did not know that she has been having fevers but she states that she was told she was found to have a fever here. Denies any history of a GI bleed. Not on anticoagulation. Continues to have a slight appetite but does state that she feels like she is having to force herself to eat. Last oral intake was some pork at approximately 1:00 p.m. and she had been sipping on some tea. She denies being on any opiate or narcotic medications or recreational use as a cause of her constipation. She does endorse occasional marijuana use. Denies history of heart failure though does state that she previously had hepatitis-C and this was treated. Related Data Allergies Allergy/AdvReac Type Severity Reaction Status Date / Time gabapentin AdvReac Severe Loss of Verified 10/26/23 13:53 Balance codeine AdvReac Mild Nausea Verified 10/26/23 13:53 propoxyphene AdvReac Mild Nausea Verified 10/26/23 13:53 [From Casie-Mira] [facility] Past Medical History Medical History (Updated 10/27/23 @ 00:00 by Background Daemon) Anxiety Arthritis 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 Bipolar 1 disorder Cataracts, bilateral Not yet extracted Change in bowel function Chills Chronic pancreatitis Chronic UTI Constipation COPD (chronic obstructive pulmonary disease) COVID-19 Depression Difficulty breathing Difficulty sleeping Diverticulitis large intestine Dizziness Emphysema, unspecified GERD (gastroesophageal reflux disease) Hepatitis Hepatitis C She stated was treated with injections History of alcohol dependence History of heroin abuse Hot flashes Hx of hepatitis C Hypercholesteremia Hypertension Irritable bowel syndrome (IBS) Numbness Pancreatitis PVD (peripheral vascular disease) SBO (small bowel obstruction) Schizo affective schizophrenia Seizures Due to abrupt withdrawal of clonazepam Tobacco dependence Surgical History Surgical History (Updated 10/26/23 @ 14:25 by Lynda Vasquez MD) H/O laparoscopy History of colectomy With adhesiolysis History of colon resection History of colonoscopy 2021 History of hysterectomy Hx of hysterectomy Hx of tubal ligation Family History Family History Mother Carcinoma of colon Cancer Diabetes mellitus Father Diabetes mellitus Cerebrovascular accident Hypertension Father Family history of diabetes mellitus in first degree relative Hypertension Cerebrovascular accident Mother Family history of diabetes mellitus in first degree relative Colon polyp Carcinoma of colon Sibling Hypertension Cancer Social History Social History Social History: The patient stated that she is down to about 4-5 cigarettes a day. Patient stated she continues to smoke marijuana but is not on a daily basis anymore like it used to be. She denies any alcohol. She former
[2023-10-26 14:30] VITALS: BP 142/88; PULSE 83; RESP 16; O2SAT 97
[2023-10-26 14:32] LABS: Basophils Percent Auto 0.2 % (0.2-1.2); Eosinophils Absolute Auto 0.1 K/mm3 (0-0.3); Eosinophils Percent Auto 1.1 % (0-4.4); Hematocrit 35.2 % (37.0-47.0); Hemoglobin 11.8 g/dL (12.0-15.0); Immature Granulocyte Absolute 0.03 K/mm3 (0.00-0.031); Immature Granulocyte Percent A 0.3 % (0-0.5); Lymphocytes Absolute Auto 1.29 K/mm3 (0.9-3.2); Lymphocytes Percent Auto 10.8 % (18.3-44.2); Mean Corpuscular HGB Conc 33.5 g/dl (32-36); Mean Corpuscular Hemoglobin 28.4 pg (26-34); Mean Corpuscular Volume 84.8 fl (80-100); Mean Platelet Volume 10.5 fl (7.4-10.4); Monocytes Percent Auto 8.6 % (2.6-8.5); Neutrophils Absolute Auto 9.5 K/mm3 (1.3-6.7); Platelet Count Result 206 k/mm3 (150-375); Red Blood Count 4.15 M/mm3 (4.2-5.4); Red Cell Distribution Width 13.9 % (11.5-14.5)
[2023-10-26 14:33] LABS: Appearance Urine Clear (Clear); Bilirubin Urine Negative (Negative); Blood Urine Negative (Negative); Color Urine Yellow (Yellow); Glucose Urine UA Negative (Negative); Ketones Urine Negative (Negative); Leukocyte Esterase Ur Negative LEU/UL (Negative); Nitrate Urine Negative (Negative); Protein Urine Negative (Negative); Urobilinogen Urine 0.2 mg/dL (<2.0)
[2023-10-26 14:36] LABS: Add Urine Microscopic? NO; Specific Grav Ur 1.004 (1.001-1.035)
[2023-10-26 14:44] LABS: INR 1.1; Prothrombin Time 14.5 Seconds (11.1-14.7)
[2023-10-26 14:45] LABS: Partial Thromboplastin Time 28.8 Seconds (22.3-36.8)
[2023-10-26 14:47] LABS: Lactic Acid Reflex 1.2 mmol/L (0.7-2.0)
[2023-10-26 14:49] LABS: Alanine Aminotransferase 24 U/L (6-35); Albumin Level 4.2 g/dL (3.5-5.1); Alkaline Phosphatase 56 U/L (38-126); Anion Gap 8 mmol/L (4-12); Aspartate Amino Transferase 25 U/L (14-36); Bilirubin,Total 1.8 mg/dL (0.2-1.3); Blood Urea Nitrogen 17 mg/dL (7-17); CRP 3.3 mg/dL (<1.0); Carbon Dioxide 22 mmol/L (22-30); Chloride 102 mmol/L (98-107); Estimated CRCL calculation 34 ml/min; Estimated Glomerular Filt Rate 49; Glucose 124 mg/dL (65-110); Potassium 3.5 mmol/L (3.4-5.0); Sodium 132 mmol/L (137-145)
[2023-10-26] MEDS: ACETAMINOPHEN 500 MG TABLET 1000 MG PO (14:50)
[2023-10-26] MEDS: MORPHINE SULFATE (*CRX) 4 MG/ML INJ IV PUSH (14:50)
[2023-10-26] MEDS: SODIUM CHLORIDE 0.9% IV 1,000 ML 999 ML IV CONT ×2 (14:52→15:17)
[2023-10-26] MEDS: ONDANSETRON INJ 4 MG/2 ML VIAL IV PUSH (14:53)
[2023-10-26 15:00] LABS: Estimated CRCL calculation 29 ml/min; Estimated Glomerular Filt Rate 41
[2023-10-26 15:20] VITALS: TEMP 37.2
[2023-10-26 15:30] VITALS: BP 132/78; PULSE 82; RESP 16; TEMP 37.2; O2SAT 98
[2023-10-26] MEDS: CIPROFLOXACIN 500 MG TAB PO (15:31)
[2023-10-26] MEDS: metroNIDAZOLE 500 MG TABLET PO (15:31)
[2023-10-26 15:42] LABS: Magnesium 2.1 mg/dL (1.6-2.3)
[2023-10-26 15:58] LABS: Amphetamine Screen Urine Negative (Negative); Barbiturate Screen Urine Negative (Negative); Benzodiazepines Screen Urine Negative (Negative); Cannabinoid Screen Urine Positive (Negative); Cocaine Screen Urine Negative (Negative); Methadone Screen Urine Negative (Negative); Opiate Screen Urine Negative (Negative); Phencyclidine Screen Urine Negative (Negative)
[2023-10-26 16:29] VITALS: BP 142/88; PULSE 80; RESP 16; O2SAT 98
== END 2023-10-26 16:29 | disposition home or self-care (01) ==
PROVIDERS: Emergency Provider Student in an Organized Health Care Education/Training Program; PCP Family Medicine
DX: K57.32 Diverticulitis of large intestine without perforation or abscess without bleeding (principal); D64.9 Anemia, unspecified; J43.9 Emphysema, unspecified; K86.1 Other chronic pancreatitis; D72.829 Elevated white blood cell count, unspecified; R79.82 Elevated C-reactive protein (CRP); F12.90 Cannabis use, unspecified, uncomplicated; I70.0 Atherosclerosis of aorta; I70.8 Atherosclerosis of other arteries; I73.9 Peripheral vascular disease, unspecified; J44.9 Chronic obstructive pulmonary disease, unspecified; K21.9 Gastro-esophageal reflux disease without esophagitis; K58.9 Irritable bowel syndrome, unspecified; M19.90 Unspecified osteoarthritis, unspecified site; F20.9 Schizophrenia, unspecified; F41.9 Anxiety disorder, unspecified; F31.9 Bipolar disorder, unspecified; F17.210 Nicotine dependence, cigarettes, uncomplicated; Z86.16 Personal history of COVID-19; Z86.19 Personal history of other infectious and parasitic diseases; Z90.49 Acquired absence of other specified parts of digestive tract; Z90.710 Acquired absence of both cervix and uterus; Z79.899 Other long term (current) drug therapy
CPT/HCPCS: 36415; 74177; 80053; 80307; 81003; 83605; 83735; 85025; 85610; 85730; 86140; 87040; 96361; 96374; 96375; 99284; A9270; J2270; J2405; J7030; Q9967

== ENCOUNTER 2023-10-29 16:21 | Inpatient (IN) | payer MEDICARE, SELFPAY ==
--- NOTE | ~2023-10-29 | CT_ITS ---
CT abdomen pelvis w con Ordering provider: Alissa Welsh PA-C History: 68 years Female with . LLQ pain, recent dx of diverticulitis . Comparison: October 26, 2023 Technique: CT abdomen and pelvis with IV and without oral contrast. Automated exposure control and it erative reconstruction technique were employed. The dose-length product was 168.40 mGy-cm. Findings: VISUALIZED LOWER CHEST: Normal. UPPER ABDOMINAL ORGANS: Liver: Normal visualized portion of the liver. Gallbladder: Normal. Spleen: Normal. Stomach/duodenum: Normal. Pancreas: Slight dilatation of the pancreatic duct. Follow-up advised. Adrenals: Normal. Kidneys: Bilateral small renal cysts. PELVIC ORGANS: The bladder is normal. BOWEL AND MESENTERY: Colon: Thickening of the wall of the junction of the sigmoid colon and descending colon suggestive of diverticulitis with minimal fat stranding. No definite perforation or abscess formation seen. The ap pendix is not well demonstrated. Small Bowel: Normal. No obstruction. Peritoneum/mesentery: No free air or free fluid. No mesenteric lymphadenopathy. RETROPERITONEUM: Mild atheromatous disease of the abdominal aorta. No retroperitoneal lymphadenopat hy. MUSCULOSKELETAL: Superficial soft tissues: The superficial soft tissues are normal. Bones: Age appropriate degenerative changes of the spine. IMPRESSION: 1. Slight thickening of the junction of the sigmoid colon with the descending colon which may indica te colitis versus diverticulitis. Minimal fat stranding is seen. Follow-up advised. 2. Tiny bilateral renal cysts. Reviewed, dictated and finalized at location A. IMPRESSION: 1. Slight thickening of the junction of the sigmoid colon with the descending colon which may indicate colitis versus diverticulitis. Minimal fat stranding i s seen. Follow-up advised. 2. Tiny bilateral renal cysts.
--- NOTE | ~2023-10-29 | US_ITS ---
US renal BI Ordering provider: Cher Brennan APRN History: . right flank pain . Comparison: None. Technique: Ultrasound bilateral kidneys. Findings: RIGHT KIDNEY: Measures 10.3x 4.6x 4.8 cm in length which is normal in size. Multiple cysts with the l argest 1.3 x 1.2 x 1.4 cm.. No renal mass or visualized echogenic stones. Otherwise, normal echotextu re and contour. No hydronephrosis. Normal renal cortical thickness. LEFT KIDNEY: Measures 10.4x 4.3x 3.9 cm in length which is normal in size. Multiple renal cysts with the largest measures 1 x 1 x 1 cm.. No renal mass or visualized echogenic stones. Otherwise, normal e chotexture and contour. No hydronephrosis. Normal renal cortical thickness. BLADDER: 61.7 mL. Wall thickness is 0.2 cm. Ureteral jets were not seen bilaterally. IMPRESSION: Bilateral renal cysts otherwise, Normal study. Reviewed, dictated and finalized at location A.
--- NOTE | ~2023-10-29 | XR_ITS ---
EXAMINATION: XR abdomen/kub 1V DATE: 10/31/2023 12:55 INDICATION: Abdominal pain. Nausea and vomiting. TECHNIQUE: A supine view of the abdomen on 2 radiographs was obtained. COMPARISON: Abdomen radiographs 02/18/2023, CT abdomen and pelvis 10/29/2023 FINDINGS: There are no dilated loops of bowel. There is a paucity of stool in the colon. IMPRESSION: 1. Normal bowel gas pattern. Reviewed, dictated and finalized at location A.
[2023-10-29 16:30] VITALS: BP 151/78; PULSE 96; RESP 18; TEMP 36.4; O2SAT 99
[2023-10-29 18:11] LABS: Basophils Absolute Auto 0.1 K/mm3 (0.0-0.1); Basophils Percent Auto 0.6 % (0.2-1.2); Eosinophils Absolute Auto 0.2 K/mm3 (0-0.3); Eosinophils Percent Auto 2.2 % (0-4.4); Hematocrit 41.1 % (37.0-47.0); Hemoglobin 13.6 g/dL (12.0-15.0); Immature Granulocyte Absolute 0.04 K/mm3 (0.00-0.031); Immature Granulocyte Percent A 0.5 % (0-0.5); Lymphocytes Absolute Auto 0.92 K/mm3 (0.9-3.2); Lymphocytes Percent Auto 11.9 % (18.3-44.2); Mean Corpuscular HGB Conc 33.1 g/dl (32-36); Mean Corpuscular Hemoglobin 28.3 pg (26-34); Mean Corpuscular Volume 85.6 fl (80-100); Mean Platelet Volume 9.9 fl (7.4-10.4); Monocytes Absolute Auto 0.7 K/mm3 (0.1-0.6); Monocytes Percent Auto 8.9 % (2.6-8.5); Neutrophils Absolute Auto 5.9 K/mm3 (1.3-6.7); Neutrophils Percent Auto 75.9 % (45.5-73.1); Platelet Count Result 267 k/mm3 (150-375); White Blood Count 7.7 K/mm3 (4.5-10.0)
[2023-10-29 18:21] LABS: Alanine Aminotransferase 26 U/L (6-35); Albumin Level 4.5 g/dL (3.5-5.1); Alkaline Phosphatase 67 U/L (38-126); Anion Gap 10 mmol/L (4-12); Aspartate Amino Transferase 30 U/L (14-36); Bilirubin,Total 1.2 mg/dL (0.2-1.3); Blood Urea Nitrogen 10 mg/dL (7-17); Calcium 9.4 mg/dL (8.4-10.2); Carbon Dioxide 20 mmol/L (22-30); Chloride 107 mmol/L (98-107); Estimated CRCL calculation 51 ml/min; Estimated Glomerular Filt Rate > 60; Glucose 89 mg/dL (65-110); Lipase 68 U/L (23-300); Potassium 3.5 mmol/L (3.4-5.0); Sodium 137 mmol/L (137-145)
[2023-10-29 20:17] LABS: Appearance Urine Clear (Clear); Bilirubin Urine Negative (Negative); Blood Urine Negative (Negative); Color Urine Yellow (Yellow); Glucose Urine UA Negative (Negative); Ketones Urine 1+ mg/dL (Negative); Leukocyte Esterase Ur Negative LEU/UL (Negative); Nitrate Urine Negative (Negative); Protein Urine Negative (Negative); Specific Grav Ur 1.013 (1.001-1.035); Urobilinogen Urine 0.2 mg/dL (<2.0); pH Urine 6.5 (5.0-9.0)
[2023-10-29 20:18] LABS: Add Urine Microscopic? NO
--- NOTE | 2023-10-29 20:26 | ED.ABDPAIN ---
HPI - Abdominal Pain General Chief Complaint: Abdominal Pain <Alissa Welsh PA-C - Last Filed: 10/30/23 02:29> Stated Complaint: abd pain and nausea <JORDAN Loera Last Filed: 10/30/23 02:29> Time Seen by Provider: 10/29/23 19:40 <Alissa Welsh PA-C - Last Filed: 10/30/23 02:29> History of Present Illness HPI narrative: 68-year-old female history of hepatitis-C, chronic abdominal pain, diverticulitis, chronic pancreatitis presents to the emergency department for abdominal pain for approximately 5 days. She states her abdominal pain is throughout her entire abdomen, specifically in her left lower quadrant and wraps to her back bilaterally.Patient was seen in our emergency department on 10/26/2023 was diagnosed with diverticulitis. She was sent home with Cipro and Flagyl which she states she has been taking as directed and has not skipped any doses. She presents today due to worsening abdominal pain despite antibiotic use as well as nausea and dry heaving. States she has been having difficulty keeping down food and fluids. Denies known fever but does report subjective fevers. Denies dysuria or hematuria. States yesterday she began having small bouts of diarrhea today states her stool is foamy . <JORDAN Loera Last Filed: 10/30/23 02:29> Related Data Allergies/Adverse Reactions: Allergies Allergy/AdvReac Type Severity Reaction Status Date / Time gabapentin AdvReac Severe Loss of Verified 10/29/23 17:53 Balance codeine AdvReac Mild Nausea Verified 10/29/23 17:53 propoxyphene AdvReac Mild Nausea Verified 10/29/23 17:53 [From Darvocet-N] <JORDAN Loera Last Filed: 10/30/23 02:29> Review of Systems Review of Systems: CONSTITUTIONAL: see HPI EYES: Denies visual changes, redness, or discharge. ENT: Denies rhinorrhea, congestion, sore throat, or otalgia. CARDIOVASCULAR: Denies chest pain, palpitations, or edema. RESPIRATORY: Denies cough or dyspnea. GASTROINTESTINAL: See HPI GENITOURINARY: Denies dysuria or hematuria. SKIN: Denies rash or itching. MUSCULOSKELETAL: Denies back pain, joint pain, or myalgia. NEUROLOGIC: Denies headache, numbness, or weakness. PSYCHIATRIC: Denies anxiety or depression. <Alissa Welsh PA-C - Last Filed: 10/30/23 02:29> [facility] Past Medical History Medical History: Medical History (Updated 10/30/23 @ 02:33 by Agnieszka Forrester MD) Anxiety Arthritis 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 Bipolar 1 disorder Cataracts, bilateral Not yet extracted Change in bowel function Chills Chronic pancreatitis Chronic UTI Constipation COPD (chronic obstructive pulmonary disease) COVID-19 Depression Difficulty breathing Difficulty sleeping Diverticulitis large intestine Dizziness Emphysema, unspecified GERD (gastroesophageal reflux disease) Hepatitis Hepatitis C She stated was treated with injections History of alcohol dependence History of heroin abuse Hot flashes Hx of hepatitis C Hypercholesteremia Hypertension Irritable bowel syndrome (IBS) Numbness Pancreatitis PVD (peripheral vascular disease) SBO (small bowel obstruction) Schizo affective schizophrenia Seizures Due to abrupt withdrawal of clonazepam Tobacco dependence <Alissa Welsh PA-C - Last Filed: 10/30/23 02:29> Surgical History Surgical History: Surgical History H/O laparoscopy History of colectomy With adhesiolysis History of colon resection History of colonoscopy 2021 History of hysterectomy Hx of hysterectomy Hx of tubal ligation <Alissa Welsh PA-C - Last Filed: 10/30/23 02:29> Family History Family History: Family History Mother Carcinoma of colon Cancer Diabetes mellitus Father Diabetes mellitus Cerebrovascular accident Hypertension Fathe
[2023-10-29] MEDS: SODIUM CHLORIDE 0.9% IV 1,000 ML 999 ML IV CONT (20:37)
[2023-10-29] MEDS: ONDANSETRON INJ 4 MG/2 ML VIAL IV PUSH ×2 (20:37→22:41)
[2023-10-29 21:09] LABS: Barbiturate Screen Urine Negative (Negative); Benzodiazepines Screen Urine Negative (Negative)
[2023-10-29 21:11] LABS: Amphetamine Screen Urine Negative (Negative); Cocaine Screen Urine Negative (Negative); Methadone Screen Urine Negative (Negative); Opiate Screen Urine Negative (Negative); Phencyclidine Screen Urine Negative (Negative)
[2023-10-29 21:27] LABS: Cannabinoid Screen Urine Positive (Negative)
[2023-10-29 21:35] LABS: Lactic Acid Reflex 0.7 mmol/L (0.7-2.0)
--- NOTE | 2023-10-29 22:24 | PM.IMHP ---
H&P: HPI History of Present Illness Date/Time: 10/29/23 22:24 Chief Complaint: abdominal pain Narrative: This is a 68-year-old female with past medical history significant for tobacco dependence, COPD/emphysema, chronic pancreatitis, bipolar 1 disorder, diverticulitis, GERD. patient presents to the emergency room for the 2nd time due to abdominal pain, worsening, patient was seen a few days before found to have diverticulitis and sent home on p.o. antibiotics however returns today due to worsening nausea vomiting abdominal pain, constipation, fevers, chills, generalized malaise, poor per orally intake. Denies bright red blood per rectum, melena, hematemesis, coffee-ground emesis or maroon stools. CT of abdomen and pelvis was significant for colitis. Patient is been placed in observation for pain control CT abdomen pelvis w con Ordering provider: Alissa Welsh PA-C History: 68 years Female with . LLQ pain, recent dx of diverticulitis . Comparison: October 26, 2023 Technique: CT abdomen and pelvis with IV and without oral contrast. Automated exposure control and iterative reconstruction technique were employed. The dose-length product was 168.40 mGy-cm. Findings: VISUALIZED LOWER CHEST: Normal. UPPER ABDOMINAL ORGANS: Liver: Normal visualized portion of the liver. Gallbladder: Normal. Spleen: Normal. Stomach/duodenum: Normal. Pancreas: Slight dilatation of the pancreatic duct. Follow-up advised. Adrenals: Normal. Kidneys: Bilateral small renal cysts. PELVIC ORGANS: The bladder is normal. BOWEL AND MESENTERY: Colon: Thickening of the wall of the junction of the sigmoid colon and descending colon suggestive of diverticulitis with minimal fat stranding. No definite perforation or abscess formation seen. The appendix is not well demonstrated. Small Bowel: Normal. No obstruction. Peritoneum/mesentery: No free air or free fluid. No mesenteric lymphadenopathy. RETROPERITONEUM: Mild atheromatous disease of the abdominal aorta. No retroperitoneal lymphadenopathy. MUSCULOSKELETAL: Superficial soft tissues: The superficial soft tissues are normal. Bones: Age appropriate degenerative changes of the spine. IMPRESSION: 1. Slight thickening of the junction of the sigmoid colon with the descending colon which may indicate colitis versus diverticulitis. Minimal fat stranding is seen. Follow-up advised. 2. Tiny bilateral renal cysts. Review of Systems Review of Systems: worsening abdominal pain, poor per orally intake, nausea, constipation, fevers, chills Constitutional: Constitutional: Reports chills, Reports fever(s), Reports malaise, Denies night sweats and Reports poor appetite Eyes: Eyes: Denies change in vision ENT: Denies dysphagia, Denies nasal congestion and Denies odynophagia Cardiovascular: Cardiovascular: Denies chest pain, Denies leg edema, Denies radiating jaw, neck or arm pain and Denies palpitations Respiratory: Respiratory: Denies cough and Denies dyspnea Gastrointestinal: Gastrointestinal: Reports abdominal pain, Denies melena, Denies hematochezia, Reports constipation, Reports nausea and Denies hematemesis Genitourinary: Genitourinary: Denies dysuria Musculoskeletal: Musculoskeletal: Denies myalgias Integumentary/Breasts: Skin/Breast: Denies rash Neurologic: Denies focal weakness and Denies Sensory deficit (Neuro) Psychiatric: Psychiatric: Reports no additional psychiatric complaints and Reports as per HPI Endocrine: Endocrine: Denies cold intolerance, Denies heat intolerance, Denies polyphagia, Denies polydipsia and Denies polyuria Hematologic/Lymphatic: Hematologic/Lymphatic: Reports no additional hematologic/lymphatic complaints and Reports as per HPI Allergic/Immunologic: Allergic/Immunologic: Reports no additional allergic/immunologic complaints and Reports as per HPI [facility] Past Medical History Medical History (Updated 10/30/23 @ 02:33 by Agnieszka Forrester MD) Anxi
[2023-10-29] MEDS: HYDROmorphone HCL INJ (*CRX) 1 MG/ML SYR 0.5 MG IV PUSH (22:41)
[2023-10-29] MEDS: PIPERACILLN/TAZ 3.375GM/NS50ML 3.375 GM/50 ML BAG IVPB (22:41)
[2023-10-29 22:46] VITALS: BP 139/72; PULSE 90; RESP 16; O2SAT 97
[2023-10-30 00:12] VITALS: BMI 18.3
--- NOTE | 2023-10-30 00:18 | ADMGEN ---
This patient, Winifred Rodriguez, was admitted to [facility] Surg Room 303-01. Patient/family oriented to hospital policies and general routines including ID bracelet, bed and alarms, visiting hours, pain management, procedures, bathroom and other care routines, personal items, smoking policy, room service/diet, and visiting hours. Information on how to activate the Rapid Response Team has been discussed. Patient/Family are encouraged to report perceived risks to care and to ask questions if they do not understand what they are told or what they should do.
[2023-10-30 00:26] VITALS: BP 147/61; PULSE 70; RESP 18; TEMP 36.8; O2SAT 97; BMI 14.9
[2023-10-30] MEDS: SODIUM CHLORIDE 0.9% IV 1,000 ML 100 ML IV CONT ×2 (00:39→11:08)
[2023-10-30] MEDS: HYDROmorphone HCL INJ (*CRX) 1 MG/ML SYR 0.5 MG IV PUSH ×5 (02:57→20:44)
[2023-10-30] MEDS: ONDANSETRON INJ 4 MG/2 ML VIAL IV PUSH ×5 (02:57→20:44)
[2023-10-30] MEDS: PIPERACILLN/TAZ 3.375GM/NS50ML 3.375 GM/50 ML BAG IVPB ×2 (04:59→11:13)
[2023-10-30 05:26] VITALS: BP 129/75; PULSE 71; RESP 17; TEMP 36.5; O2SAT 100
[2023-10-30] MEDS: FAMOTIDINE 20 MG TABLET PO (07:37)
[2023-10-30 08:00] VITALS: O2SAT 100
--- NOTE | 2023-10-30 09:35 | PM.IMPN ---
Progress Note: A&P Assessment and Plan (1) Diverticulitis: Code(s): K57.92 - Diverticulitis of intestine, part unspecified, without perforation or abscess without bleeding Status: Acute Assessment and Plan: 10/30/23: CT of the abdomen/pelvis shown slight thickening of the junction of the sigmoid colon with the descending colon which may represent colitis versus diverticulitis Patient recently seen in the ER 10/26/23 with similar complaints and was found to have diverticulitis. She was started on Cipro and Flagyl at that time. She did have blood cultures from that date which are showing no growth on preliminary read. She was discharged home the same day with instructions to follow up outpatient with GI Continue pain and nausea control Stool culture and C diff specimen obtained and is pending Blood cultures obtained and are pending Will switch to Zosyn to Flagyl and Cipro IV (2) Intractable nausea and vomiting: Code(s): R11.2 - Nausea with vomiting, unspecified Status: Acute Assessment and Plan: 10/30/23: likely secondary to diverticulitis and chronic pancreatitis Continue Zofran as needed for nausea Start with Clear liquid diet (3) Intractable abdominal pain: Code(s): R10.9 - Unspecified abdominal pain Status: Acute Assessment and Plan: 10/30/23: likely secondary to diverticulitis and chronic pancreatitis Continue pain control (4) Tobacco dependence: Code(s): F17.200 - Nicotine dependence, unspecified, uncomplicated Status: Acute Assessment and Plan: 10/30/23: Current every day smoker, however she has cut back. Smoking history of 40 years. (5) Emphysema, unspecified: Code(s): J43.9 - Emphysema, unspecified Status: Acute Assessment and Plan: 10/30/23: Continue albuterol inhaler as needed for SOB/wheezing Time Spent With Patient Time with patient: Greater than 35 minutes Subjective Date/time seen: 10/30/23 09:35 Interval history: This is a 68 year old female who presented to the hospital on 10/29/23 with complaints of abdominal pain and nausea. Work up in the hospital includes a CT of the abdomen/pelvis which shown slight thickening of the junction of the sigmoid colon with the descending colon representing colitis versus diverticulitis, tiny bilateral renal cysts. Initial WBC 7.7, bicarb 20, liver enzymes were normal, lipase normal at 68. UA was obtained and shown 1+ urine ketones otherwise negative. UDS was positive for cannabinoids. Blood cultures were obtained and are pending. Stool and C diff ordered and was collected. Patient was given 1L NS, Zosyn, pain medications and Zofran while in the ER. She was started on IVF and clear liquid diet. Of note patient was seen in the ER on 10/26/[address] of the abdomen/pelvis shown uncomplicated sigmoid diverticulitis, pancreatic ductal dilation with scattered dystrophic calcific lesions consistent with chronic pancreatitis. Blood cultures were obtained and showing no growth. Total bili was elevated at 1.8, Lactic acid 1.2, CRP 3.3 at that time. While in the ER she received a fluid bolus, Zofran. Patient was discharged home on Cipro and Flagyl for 5-10 days. She was told to follow up with GI on an outpatient basis. On examination today patient is alert and oriented x3. Patient denies any fever, chills, shortness of breath, or chest pain. Patient endorses nausea, vomiting, diarrhea, abdominal pain that has been persistent since the last hospital visit. She states she is not able to eat or drink and has had trouble keeping pills down. We will switch patient back to Cipro and Flagyl IV until able to tolerate po. Review of Systems Review of Systems: All systems reviewed & are unremarkable except as noted in HPI and below Constitutional: Constitutional: Reports as per HPI and Reports no additional constitutional complaints Eyes: Eyes: Reports as per HPI and Reports no addition
[2023-10-30 10:45] VITALS: BMI 14.9
[2023-10-30 14:00] VITALS: BP 131/70; PULSE 60; RESP 14; TEMP 36.6; O2SAT 96
--- NOTE | 2023-10-30 14:21 | PC.NURSE ---
Cher Brennan Engine Manager notified of patient refusing all am meds due to nausea.
[2023-10-30] MEDS: metroNIDAZOLE 500 MG/ISO 100ML 500 MG/100 ML BAG 100 MG IVPB ×2 (15:20→20:45)
[2023-10-30] MEDS: CIPROFLOXACIN 400 MG/D5W 200ML 200 ML 200 MG IVPB ×2 (16:25→23:18)
[2023-10-30] MEDS: traZODone HCL 50 MG TABLET 100 MG BY MOUTH (20:45)
[2023-10-30 21:16] VITALS: BP 145/67; PULSE 91; RESP 14; TEMP 36.1; O2SAT 94
[2023-10-31] MEDS: ONDANSETRON INJ 4 MG/2 ML VIAL IV PUSH ×4 (03:42→20:44)
[2023-10-31] MEDS: SODIUM CHLORIDE 0.9% IV 1,000 ML 100 ML IV CONT ×2 (03:42→17:57)
[2023-10-31 05:22] LABS: Basophils Percent Auto 0.3 % (0.2-1.2); Eosinophils Absolute Auto 0.2 K/mm3 (0-0.3); Eosinophils Percent Auto 2.9 % (0-4.4); Hematocrit 35.7 % (37.0-47.0); Hemoglobin 11.7 g/dL (12.0-15.0); Immature Granulocyte Absolute 0.02 K/mm3 (0.00-0.031); Immature Granulocyte Percent A 0.3 % (0-0.5); Lymphocytes Absolute Auto 0.89 K/mm3 (0.9-3.2); Lymphocytes Percent Auto 15.1 % (18.3-44.2); Mean Corpuscular HGB Conc 32.8 g/dl (32-36); Mean Corpuscular Hemoglobin 28.5 pg (26-34); Mean Corpuscular Volume 86.9 fl (80-100); Mean Platelet Volume 10.3 fl (7.4-10.4); Monocytes Absolute Auto 0.6 K/mm3 (0.1-0.6); Monocytes Percent Auto 9.5 % (2.6-8.5); Neutrophils Absolute Auto 4.2 K/mm3 (1.3-6.7); Neutrophils Percent Auto 71.9 % (45.5-73.1); Platelet Count Result 229 k/mm3 (150-375); Red Blood Count 4.11 M/mm3 (4.2-5.4); Red Cell Distribution Width 13.9 % (11.5-14.5); White Blood Count 5.9 K/mm3 (4.5-10.0)
[2023-10-31 05:36] LABS: Alanine Aminotransferase 23 U/L (6-35); Albumin Level 3.5 g/dL (3.5-5.1); Alkaline Phosphatase 52 U/L (38-126); Anion Gap 7 mmol/L (4-12); Aspartate Amino Transferase 30 U/L (14-36); Bilirubin,Total 0.7 mg/dL (0.2-1.3); Blood Urea Nitrogen 4 mg/dL (7-17); Calcium 8.6 mg/dL (8.4-10.2); Carbon Dioxide 22 mmol/L (22-30); Chloride 106 mmol/L (98-107); Estimated CRCL calculation 48 ml/min; Estimated Glomerular Filt Rate > 60; Glucose 85 mg/dL (65-110); Potassium 3.1 mmol/L (3.4-5.0); Sodium 135 mmol/L (137-145)
[2023-10-31 05:47] VITALS: BP 129/75; PULSE 63; RESP 12; TEMP 36.1; O2SAT 100
[2023-10-31] MEDS: metroNIDAZOLE 500 MG/ISO 100ML 500 MG/100 ML BAG 100 MG IVPB ×3 (05:48→22:03)
[2023-10-31 08:00] VITALS: PULSE 63; RESP 12; O2SAT 98
[2023-10-31 08:08] VITALS: O2SAT 98
[2023-10-31] MEDS: FAMOTIDINE 20 MG TABLET PO (09:15)
[2023-10-31] MEDS: LOSARTAN POTASSIUM 25 MG TABLET PO (09:15)
[2023-10-31] MEDS: LINACLOTIDE 72 MCG CAPSULE PO (09:15)
[2023-10-31] MEDS: ATORVASTATIN 20 MG TABLET PO (09:15)
[2023-10-31] MEDS: POTASSIUM CHLORIDE 20 MEQ ER TABLET 40 MEQ PO (09:15)
[2023-10-31] MEDS: LIPASE/AMYLASE/PROTEASE 12,000 UNITS CAP 2 CAP PO ×3 (09:15→17:57)
[2023-10-31] MEDS: CIPROFLOXACIN 400 MG/D5W 200ML 200 ML 200 MG IVPB ×2 (09:16→20:50)
[2023-10-31] MEDS: ENOXAPARIN 40 MG/0.4 ML SYRINGE SUB-Q (09:16)
[2023-10-31] MEDS: polyethylene glycoL 3350 17 GM POWD.PACK PO (09:16)
[2023-10-31] MEDS: HYDROmorphone HCL INJ (*CRX) 1 MG/ML SYR 0.5 MG IV PUSH ×3 (09:18→20:44)
--- NOTE | 2023-10-31 11:27 | P.PNIM_ITS ---
Progress Note: A&P Assessment and Plan (1) Diverticulitis: Code(s): K57.92 - Diverticulitis of intestine, part unspecified, without perforation or abscess without bleeding Status: Acute Assessment and Plan: 10/30/23: * CT of the abdomen/pelvis shown slight thickening of the junction of the sigmoid colon with the descending colon which may represent colitis versus diverticulitis * Patient recently seen in the ER 10/26/23 with similar complaints and was found to have diverticulitis. She was started on Cipro and Flagyl at that time. She did have blood cultures from that date which are showing no growth on prel iminary read. She was discharged home the same day with instructions to follow up outpatient with GI * Continue pain and nausea control * Stool culture and C diff specimen obtained and is pending * Blood cultures obtained and are pending * Will switch to Zosyn to Flagyl and Cipro IV 10/31/23: * Continue pain and nausea control * Blood culture showing no growth today on preliminary read * Continues Flagyl and Cipro IV * Continue clear liquid diet * Continue IV fluids (2) Intractable nausea and vomiting: Code(s): R11.2 - Nausea with vomiting, unspecified Status: Acute Assessment and Plan: 10/30/23: * likely secondary to diverticulitis and chronic pancreatitis * Continue Zofran as needed for nausea * Start with Clear liquid diet 10/31/23: * Still reporting nausea vomiting and abdominal pain again today. * Will get a KUB to rule out ileus/obstruction * Continue with nausea and pain control (3) Intractable abdominal pain: Code(s): R10.9 - Unspecified abdominal pain Status: Acute Assessment and Plan: 10/30/23: * likely secondary to diverticulitis and chronic pancreatitis * Continue pain control 10/31/23: * No change to current treatment plan (4) Tobacco dependence: Code(s): F17.200 - Nicotine dependence, unspecified, uncomplicated Status: Acute Assessment and Plan: 10/30/23: * Current every day smoker, however she has cut back. * Smoking history of 40 years. 10/31/23: * No change (5) Emphysema, unspecified: Code(s): J43.9 - Emphysema, unspecified Status: Acute Assessment and Plan: 10/30/23: * Continue albuterol inhaler as needed for SOB/wheezing 10/31/23: * No change to current treatment plan Time Spent With Patient Time with patient: 25 - 35 minutes Subjective Date/time seen: 10/31/23 11:27 Interval history: 10/30/23: This is a 68 year old female who presented to the hospital on 10/29/23 with complaints of abdominal pain and nausea. Work up in the hospital includes a CT of the abdomen/pelvis which shown slight thickening of the junction of the sigmoid colon with the descending colon representing colitis versus diverticulitis, tiny bilateral renal cysts. Initial WBC 7.7, bicarb 20, liver enzymes were normal, lipase normal at 68. UA was obtained and shown 1+ urine ketones otherwise negative. UDS was positive for cannabinoids. Blood cultures were obtained and are pending. Stool and C diff ordered and was collected. Patient was given 1L NS, Zosyn, pain medications and Zofran while in the ER. She was started on IVF and clear liquid diet. Of note patient was seen in the ER on 10/26/[address] of the abdomen/pelvis shown uncomplicated sigmoid diverticulitis, pancreatic ductal dilation with scattered dystrophic calcific lesions consistent with chronic pancreatitis. Blood cultures were obtained and showing no growth. Total bili was elevated at 1.8, Lacti
--- NOTE | 2023-10-31 11:27 | PM.IMPN ---
Progress Note: A&P Assessment and Plan (1) Diverticulitis: Code(s): K57.92 - Diverticulitis of intestine, part unspecified, without perforation or abscess without bleeding Status: Acute Assessment and Plan: 10/30/23: CT of the abdomen/pelvis shown slight thickening of the junction of the sigmoid colon with the descending colon which may represent colitis versus diverticulitis Patient recently seen in the ER 10/26/23 with similar complaints and was found to have diverticulitis. She was started on Cipro and Flagyl at that time. She did have blood cultures from that date which are showing no growth on preliminary read. She was discharged home the same day with instructions to follow up outpatient with GI Continue pain and nausea control Stool culture and C diff specimen obtained and is pending Blood cultures obtained and are pending Will switch to Zosyn to Flagyl and Cipro IV 10/31/23: Continue pain and nausea control Blood culture showing no growth today on preliminary read Continues Flagyl and Cipro IV Continue clear liquid diet Continue IV fluids (2) Intractable nausea and vomiting: Code(s): R11.2 - Nausea with vomiting, unspecified Status: Acute Assessment and Plan: 10/30/23: likely secondary to diverticulitis and chronic pancreatitis Continue Zofran as needed for nausea Start with Clear liquid diet 10/31/23: Still reporting nausea vomiting and abdominal pain again today. Will get a KUB to rule out ileus/obstruction Continue with nausea and pain control (3) Intractable abdominal pain: Code(s): R10.9 - Unspecified abdominal pain Status: Acute Assessment and Plan: 10/30/23: likely secondary to diverticulitis and chronic pancreatitis Continue pain control 10/31/23: No change to current treatment plan (4) Tobacco dependence: Code(s): F17.200 - Nicotine dependence, unspecified, uncomplicated Status: Acute Assessment and Plan: 10/30/23: Current every day smoker, however she has cut back. Smoking history of 40 years. 10/31/23: No change (5) Emphysema, unspecified: Code(s): J43.9 - Emphysema, unspecified Status: Acute Assessment and Plan: 10/30/23: Continue albuterol inhaler as needed for SOB/wheezing 10/31/23: No change to current treatment plan Time Spent With Patient Time with patient: 25 - 35 minutes Subjective Date/time seen: 10/31/23 11:27 Interval history: 10/30/23: This is a 68 year old female who presented to the hospital on 10/29/23 with complaints of abdominal pain and nausea. Work up in the hospital includes a CT of the abdomen/pelvis which shown slight thickening of the junction of the sigmoid colon with the descending colon representing colitis versus diverticulitis, tiny bilateral renal cysts. Initial WBC 7.7, bicarb 20, liver enzymes were normal, lipase normal at 68. UA was obtained and shown 1+ urine ketones otherwise negative. UDS was positive for cannabinoids. Blood cultures were obtained and are pending. Stool and C diff ordered and was collected. Patient was given 1L NS, Zosyn, pain medications and Zofran while in the ER. She was started on IVF and clear liquid diet. Of note patient was seen in the ER on 10/26/[address] of the abdomen/pelvis shown uncomplicated sigmoid diverticulitis, pancreatic ductal dilation with scattered dystrophic calcific lesions consistent with chronic pancreatitis. Blood cultures were obtained and showing no growth. Total bili was elevated at 1.8, Lactic acid 1.2, CRP 3.3 at that time. While in the ER she received a fluid bolus, Zofran. Patient was discharged home on Cipro and Flagyl for 5-10 days. She was told to follow up with GI on an outpatient basis. On examination today patient is alert and oriented x3. Patient denies any fever, chills, shortness of breath, or chest pain. Patient endorses nausea, vomiting, diarrhea, abdominal pain that has been persi
[2023-10-31 14:00] VITALS: BP 135/64; PULSE 72; RESP 19; TEMP 36.3; O2SAT 99
[2023-10-31 20:00] VITALS: PULSE 67; RESP 16; O2SAT 100
[2023-10-31 21:01] VITALS: BP 148/70; PULSE 67; RESP 16; TEMP 36.3; O2SAT 100
[2023-10-31] MEDS: PROMETHAZINE HCL 25 MG/ML AMPUL 12.5 MG IV PUSH (22:01)
[2023-11-01] MEDS: metroNIDAZOLE 500 MG/ISO 100ML 500 MG/100 ML BAG 100 MG IVPB ×3 (05:14→22:08)
[2023-11-01] MEDS: SODIUM CHLORIDE 0.9% IV 1,000 ML 100 ML IV CONT ×2 (05:14→12:19)
[2023-11-01 05:15] VITALS: BP 156/81; PULSE 77; RESP 16; TEMP 36.3; O2SAT 99
[2023-11-01] MEDS: PROMETHAZINE HCL 25 MG/ML AMPUL 12.5 MG IV PUSH ×2 (05:19→13:05)
[2023-11-01 05:26] LABS: Basophils Percent Auto 0.7 % (0.2-1.2); Eosinophils Absolute Auto 0.2 K/mm3 (0-0.3); Eosinophils Percent Auto 3.5 % (0-4.4); Hemoglobin 12.7 g/dL (12.0-15.0); Immature Granulocyte Absolute 0.02 K/mm3 (0.00-0.031); Immature Granulocyte Percent A 0.3 % (0-0.5); Lymphocytes Absolute Auto 1.14 K/mm3 (0.9-3.2); Lymphocytes Percent Auto 19.8 % (18.3-44.2); Mean Corpuscular Hemoglobin 28.3 pg (26-34); Mean Corpuscular Volume 91.3 fl (80-100); Monocytes Absolute Auto 0.6 K/mm3 (0.1-0.6); Monocytes Percent Auto 10.2 % (2.6-8.5); Neutrophils Absolute Auto 3.8 K/mm3 (1.3-6.7); Neutrophils Percent Auto 65.5 % (45.5-73.1); Platelet Count Result 210 k/mm3 (150-375); Red Blood Count 4.49 M/mm3 (4.2-5.4); Red Cell Distribution Width 14.3 % (11.5-14.5); White Blood Count 5.8 K/mm3 (4.5-10.0)
[2023-11-01 05:42] LABS: Alanine Aminotransferase 25 U/L (6-35); Albumin Level 3.5 g/dL (3.5-5.1); Alkaline Phosphatase 42 U/L (38-126); Anion Gap 5 mmol/L (4-12); Aspartate Amino Transferase 32 U/L (14-36); Bilirubin,Total 0.8 mg/dL (0.2-1.3); Calcium 8.5 mg/dL (8.4-10.2); Carbon Dioxide 23 mmol/L (22-30); Chloride 108 mmol/L (98-107); Estimated CRCL calculation 57 ml/min; Estimated Glomerular Filt Rate > 60; Glucose 89 mg/dL (65-110); Potassium 3.4 mmol/L (3.4-5.0); Sodium 136 mmol/L (137-145)
[2023-11-01 05:43] LABS: Blood Urea Nitrogen < 2 mg/dL (7-17)
[2023-11-01] MEDS: LINACLOTIDE 72 MCG CAPSULE PO (07:22)
[2023-11-01] MEDS: LOSARTAN POTASSIUM 25 MG TABLET PO (08:26)
[2023-11-01] MEDS: LIPASE/AMYLASE/PROTEASE 12,000 UNITS CAP 2 CAP PO ×3 (08:26→16:52)
[2023-11-01] MEDS: ATORVASTATIN 20 MG TABLET PO (08:26)
[2023-11-01] MEDS: FAMOTIDINE 20 MG TABLET PO (08:26)
[2023-11-01] MEDS: CIPROFLOXACIN 400 MG/D5W 200ML 200 ML 200 MG IVPB ×2 (08:26→20:34)
[2023-11-01] MEDS: PSYLLIUM POWDER PACKET 1 PACKET PO (08:27)
[2023-11-01] MEDS: ENOXAPARIN 40 MG/0.4 ML SYRINGE SUB-Q (08:27)
[2023-11-01] MEDS: HYDROmorphone HCL INJ (*CRX) 1 MG/ML SYR 0.5 MG IV PUSH ×3 (08:31→19:04)
--- NOTE | 2023-11-01 10:20 | PCNFU ---
Nutrition Follow-Up Complete: Inadequate energy intake related to diet order as evidenced by clear liquid status Goal:Diet advanced PO intake 75% or greater Pt not meeting goal. continue with same goal. Pt current nutrition is Clear liquids. Nutrition recommendation: Advance diet when tolerated Last recorded weight is 40.7 kg. Bowel Motility: +BM 10/30 Labs Reviewed: NA:136, BUN:2, Cr:0.5 Meds Noted: zofran, lovenox Skin: WNL Additional Notes: Pt continues on clear liquids, intake remains poor overall, c/o nausea and vomiting. Pt states she prefers the pepper Ensure clear so will make notes of that for dietary. Encouraged po intake. Monitor diet orders, tolerance, intake, wt, labs. Follow up in 3 days.
--- NOTE | 2023-11-01 10:23 | P.PNIM_ITS ---
Progress Note: A&P Assessment and Plan (1) Diverticulitis: Code(s): K57.92 - Diverticulitis of intestine, part unspecified, without perforation or abscess without bleeding Status: Acute Assessment and Plan: 10/30/23: * CT of the abdomen/pelvis shown slight thickening of the junction of the sigmoid colon with the descending colon which may represent colitis versus diverticulitis * Patient recently seen in the ER 10/26/23 with similar complaints and was found to have diverticulitis. She was started on Cipro and Flagyl at that time. She did have blood cultures from that date which are showing no growth on prel iminary read. She was discharged home the same day with instructions to follow up outpatient with GI * Continue pain and nausea control * Stool culture and C diff specimen obtained and is pending * Blood cultures obtained and are pending * Will switch to Zosyn to Flagyl and Cipro IV 10/31/23: * Continue pain and nausea control * Blood culture showing no growth today on preliminary read * Continues Flagyl and Cipro IV * Continue clear liquid diet * Continue IV fluids 11/01/23: * Zofran discontinued, Phenergan started last night and we will increase to 25 mg q.4 hour for better nausea control. * Continue with IV antibiotics and IV fluids * Advanced diet as tolerated * Blood cultures still showing no growth on preliminary read (2) Intractable nausea and vomiting: Code(s): R11.2 - Nausea with vomiting, unspecified Status: Acute Assessment and Plan: 10/30/23: * likely secondary to diverticulitis and chronic pancreatitis * Continue Zofran as needed for nausea * Start with Clear liquid diet 10/31/23: * Still reporting nausea vomiting and abdominal pain again today. * Will get a KUB to rule out ileus/obstruction * Continue with nausea and pain control 11/01/23: * Still reporting nausea and vomiting overnight * Zofran was discontinued and patient was started on Phenergan * We will increase her Phenergan to 25 mg q.4 for better control * KUB was negative for ileus/obstruction (3) Intractable abdominal pain: Code(s): R10.9 - Unspecified abdominal pain Status: Acute Assessment and Plan: 10/30/23: * likely secondary to diverticulitis and chronic pancreatitis * Continue pain control 10/31/23: * No change to current treatment plan (4) Tobacco dependence: Code(s): F17.200 - Nicotine dependence, unspecified, uncomplicated Status: Acute Assessment and Plan: 10/30/23: * Current every day smoker, however she has cut back. * Smoking history of 40 years. 10/31/23: * No change (5) Emphysema, unspecified: Code(s): J43.9 - Emphysema, unspecified Status: Acute Assessment and Plan: 10/30/23: * Continue albuterol inhaler as needed for SOB/wheezing 10/31/23: * No change to current treatment plan (6) Severe protein-calorie malnutrition: Code(s): E43 - Unspecified severe protein-calorie malnutrition Status: Acute Assessment and Plan: 11/01/23: * BMI 14.9 40.7 kg * Likely due to chronic pancreatitis and possible gastroparesis due to marijuana use which causes her nausea, vomiting, abdominal pain * Advance diet as tolerated, currently on clear liquid diet * Will add supplements Time Spent With Patient Time with patient: 25 - 35 minutes Subjective Date/time seen: 11/01/23 10:23 Interval history: 10/30/23: This is a 68 year old female who presented to the hospital on 10/29/23 with complaints of abdominal pain
--- NOTE | 2023-11-01 10:23 | PM.IMPN ---
Progress Note: A&P Assessment and Plan (1) Diverticulitis: Code(s): K57.92 - Diverticulitis of intestine, part unspecified, without perforation or abscess without bleeding Status: Acute Assessment and Plan: 10/30/23: CT of the abdomen/pelvis shown slight thickening of the junction of the sigmoid colon with the descending colon which may represent colitis versus diverticulitis Patient recently seen in the ER 10/26/23 with similar complaints and was found to have diverticulitis. She was started on Cipro and Flagyl at that time. She did have blood cultures from that date which are showing no growth on preliminary read. She was discharged home the same day with instructions to follow up outpatient with GI Continue pain and nausea control Stool culture and C diff specimen obtained and is pending Blood cultures obtained and are pending Will switch to Zosyn to Flagyl and Cipro IV 10/31/23: Continue pain and nausea control Blood culture showing no growth today on preliminary read Continues Flagyl and Cipro IV Continue clear liquid diet Continue IV fluids 11/01/23: Zofran discontinued, Phenergan started last night and we will increase to 25 mg q.4 hour for better nausea control. Continue with IV antibiotics and IV fluids Advanced diet as tolerated Blood cultures still showing no growth on preliminary read (2) Intractable nausea and vomiting: Code(s): R11.2 - Nausea with vomiting, unspecified Status: Acute Assessment and Plan: 10/30/23: likely secondary to diverticulitis and chronic pancreatitis Continue Zofran as needed for nausea Start with Clear liquid diet 10/31/23: Still reporting nausea vomiting and abdominal pain again today. Will get a KUB to rule out ileus/obstruction Continue with nausea and pain control 11/01/23: Still reporting nausea and vomiting overnight Zofran was discontinued and patient was started on Phenergan We will increase her Phenergan to 25 mg q.4 for better control KUB was negative for ileus/obstruction (3) Intractable abdominal pain: Code(s): R10.9 - Unspecified abdominal pain Status: Acute Assessment and Plan: 10/30/23: likely secondary to diverticulitis and chronic pancreatitis Continue pain control 10/31/23: No change to current treatment plan (4) Tobacco dependence: Code(s): F17.200 - Nicotine dependence, unspecified, uncomplicated Status: Acute Assessment and Plan: 10/30/23: Current every day smoker, however she has cut back. Smoking history of 40 years. 10/31/23: No change (5) Emphysema, unspecified: Code(s): J43.9 - Emphysema, unspecified Status: Acute Assessment and Plan: 10/30/23: Continue albuterol inhaler as needed for SOB/wheezing 10/31/23: No change to current treatment plan (6) Severe protein-calorie malnutrition: Code(s): E43 - Unspecified severe protein-calorie malnutrition Status: Acute Assessment and Plan: 11/01/23: BMI 14.9 40.7 kg Likely due to chronic pancreatitis and possible gastroparesis due to marijuana use which causes her nausea, vomiting, abdominal pain Advance diet as tolerated, currently on clear liquid diet Will add supplements Time Spent With Patient Time with patient: 25 - 35 minutes Subjective Date/time seen: 11/01/23 10:23 Interval history: 10/30/23: This is a 68 year old female who presented to the hospital on 10/29/23 with complaints of abdominal pain and nausea. Work up in the hospital includes a CT of the abdomen/pelvis which shown slight thickening of the junction of the sigmoid colon with the descending colon representing colitis versus diverticulitis, tiny bilateral renal cysts. Initial WBC 7.7, bicarb 20, liver enzymes were normal, lipase normal at 68. UA was obtained and shown 1+ urine ketones otherwise negative. UDS was positive for cannabinoids. Blood cultures were obtained and are pending. Stool and C diff ord
--- NOTE | 2023-11-01 11:10 | PC.NURSE ---
Patient in bed during morning assessment. She has concerns about medications and diet making her nauseous but states the new nausea medication works well. Patient educated on healing process and need for gentle digestion diet. Patient is very cooperative and wants to get better.
[2023-11-01] MEDS: PANTOPRAZOLE SODIUM IV 40 MG VIAL IV PUSH ×2 (12:19→20:24)
[2023-11-01 14:00] VITALS: BP 164/75; PULSE 81; RESP 16; TEMP 36.3; O2SAT 99
[2023-11-01 21:01] VITALS: BP 155/95; PULSE 100; RESP 18; TEMP 36.9; O2SAT 97
[2023-11-02] MEDS: PROMETHAZINE HCL 25 MG/ML AMPUL IM ×4 (00:27→21:05)
[2023-11-02] MEDS: HYDROmorphone HCL INJ (*CRX) 1 MG/ML SYR 0.5 MG IV PUSH ×5 (00:27→20:53)
[2023-11-02] MEDS: SODIUM CHLORIDE 0.9% IV 1,000 ML 100 ML IV CONT ×2 (02:23→15:51)
[2023-11-02 05:08] LABS: Basophils Percent Auto 0.6 % (0.2-1.2); Eosinophils Absolute Auto 0.3 K/mm3 (0-0.3); Hematocrit 37.2 % (37.0-47.0); Hemoglobin 11.8 g/dL (12.0-15.0); Immature Granulocyte Absolute 0.02 K/mm3 (0.00-0.031); Immature Granulocyte Percent A 0.3 % (0-0.5); Lymphocytes Absolute Auto 1.21 K/mm3 (0.9-3.2); Lymphocytes Percent Auto 19.4 % (18.3-44.2); Mean Corpuscular HGB Conc 31.7 g/dl (32-36); Mean Corpuscular Hemoglobin 28.5 pg (26-34); Mean Corpuscular Volume 89.9 fl (80-100); Mean Platelet Volume 9.8 fl (7.4-10.4); Monocytes Absolute Auto 0.6 K/mm3 (0.1-0.6); Monocytes Percent Auto 9.8 % (2.6-8.5); Neutrophils Absolute Auto 4.1 K/mm3 (1.3-6.7); Neutrophils Percent Auto 65.9 % (45.5-73.1); Platelet Count Result 208 k/mm3 (150-375); Red Blood Count 4.14 M/mm3 (4.2-5.4); Red Cell Distribution Width 14.5 % (11.5-14.5); White Blood Count 6.3 K/mm3 (4.5-10.0)
[2023-11-02 05:15] VITALS: BP 150/83; PULSE 87; RESP 16; TEMP 36.6; O2SAT 95
[2023-11-02 05:22] LABS: Alanine Aminotransferase 30 U/L (6-35); Albumin Level 3.3 g/dL (3.5-5.1); Alkaline Phosphatase 48 U/L (38-126); Anion Gap 5 mmol/L (4-12); Aspartate Amino Transferase 45 U/L (14-36); Bilirubin,Total 0.8 mg/dL (0.2-1.3); Blood Urea Nitrogen 3 mg/dL (7-17); Calcium 8.3 mg/dL (8.4-10.2); Carbon Dioxide 26 mmol/L (22-30); Chloride 109 mmol/L (98-107); Estimated CRCL calculation 42 ml/min; Estimated Glomerular Filt Rate > 60; Glucose 83 mg/dL (65-110); Potassium 3.1 mmol/L (3.4-5.0); Sodium 140 mmol/L (137-145)
[2023-11-02] MEDS: metroNIDAZOLE 500 MG/ISO 100ML 500 MG/100 ML BAG 100 MG IVPB ×3 (06:57→21:59)
[2023-11-02] MEDS: CIPROFLOXACIN 400 MG/D5W 200ML 200 ML 200 MG IVPB ×2 (08:04→20:50)
[2023-11-02] MEDS: PANTOPRAZOLE SODIUM IV 40 MG VIAL IV PUSH ×2 (08:04→20:50)
[2023-11-02] MEDS: LIPASE/AMYLASE/PROTEASE 12,000 UNITS CAP 2 CAP PO (08:04)
[2023-11-02] MEDS: ENOXAPARIN 40 MG/0.4 ML SYRINGE SUB-Q (08:04)
[2023-11-02] MEDS: LOSARTAN POTASSIUM 25 MG TABLET PO (08:05)
[2023-11-02] MEDS: FAMOTIDINE 20 MG TABLET PO (08:05)
[2023-11-02] MEDS: ATORVASTATIN 20 MG TABLET PO (08:05)
[2023-11-02 14:00] VITALS: BP 159/92; PULSE 89; RESP 16; TEMP 36.8; O2SAT 100
--- NOTE | 2023-11-02 15:04 | WPDGICN ---
Assessment and Plan Assessment and plan (1) Diverticulitis: Code(s): K57.92 - Diverticulitis of intestine, part unspecified, without perforation or abscess without bleeding Status: Acute Assessment and Plan: on iv antibiotics now advance diet as tolerated last colonoscopy 2021 with polyps removed (2) Intractable nausea and vomiting: Code(s): R11.2 - Nausea with vomiting, unspecified Status: Acute Assessment and Plan: antiemetics and medical support (3) Intractable abdominal pain: Code(s): R10.9 - Unspecified abdominal pain Status: Acute (4) Chronic pancreatitis: Code(s): K86.1 - Other chronic pancreatitis Status: Acute (5) COPD (chronic obstructive pulmonary disease): Code(s): J44.9 - Chronic obstructive pulmonary disease, unspecified Status: Acute GI Consult Note Consult date/time: 11/02/23 15:04 Reason for consult: abdominal pain, diverticulitis HPI: Winifred Rodriguez is a 68 year old female history of copd, chronic pancreatitis, colon polyp (last colonoscopy 2021 after had + cologuard- removed small TA polyps). She has known history of diverticulitis last hospitalization about 4-5 years ago. 10/25 came with abdominal pain, CT scan showed sigmoid diverticulitis and sent home with oral antibiotics, she came back 10/28 with more pain in LLQ and nausea/vomiting, CT scan showed colitis vs diverticulitis and admitted for iv antibiotics. Pain in llq has improved, she also has Rt flank pain that worsened. No diarrhea. Review of Systems Constitutional: Constitutional: Denies chills Eyes: Eyes: Denies blurry vision ENT: Reports Normal hearing present Cardiovascular: Cardiovascular: Denies chest pain Respiratory: Respiratory: Denies cough Gastrointestinal: Gastrointestinal: Reports abdominal pain and Reports nausea Musculoskeletal: Musculoskeletal: Denies neck pain Integumentary/Breasts: Skin/Breast: Denies rash Neurologic: Denies Abnormal speech present Psychiatric: Psychiatric: Denies behavioral changes [facility] Past Medical History Medical History (Updated 11/02/23 @ 15:08 by Minor Rodriguez MD) Anxiety Arthritis 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 Bipolar 1 disorder Cataracts, bilateral Not yet extracted Change in bowel function Chills Chronic pancreatitis Chronic UTI Constipation COPD (chronic obstructive pulmonary disease) COVID-19 Depression Difficulty breathing Difficulty sleeping Diverticulitis large intestine Dizziness Emphysema, unspecified GERD (gastroesophageal reflux disease) Hepatitis Hepatitis C She stated was treated with injections History of alcohol dependence History of heroin abuse Hot flashes Hx of hepatitis C Hypercholesteremia Hypertension Irritable bowel syndrome (IBS) Numbness Pancreatitis PVD (peripheral vascular disease) SBO (small bowel obstruction) Schizo affective schizophrenia Seizures Due to abrupt withdrawal of clonazepam Tobacco dependence Surgical History Surgical History H/O laparoscopy History of colectomy With adhesiolysis History of colon resection History of colonoscopy 2021 History of hysterectomy Hx of hysterectomy Hx of tubal ligation Family History Family History Mother Carcinoma of colon Cancer Diabetes mellitus Father Diabetes mellitus Cerebrovascular accident Hypertension Father Family history of diabetes mellitus in first degree relative Hypertension Cerebrovascular accident Mother Family history of diabetes mellitus in first degree relative Colon polyp Carcinoma of colon Sibling Hypertension Cancer Social History Social History Social History: The patient stated that she is down to about 4-5 cigarettes a day. Patient stat
--- NOTE | 2023-11-02 15:34 | P.PNIM_ITS ---
Progress Note: A&P Assessment and Plan (1) Diverticulitis: Code(s): K57.92 - Diverticulitis of intestine, part unspecified, without perforation or abscess without bleeding Status: Acute Assessment and Plan: 10/30/23: * CT of the abdomen/pelvis shown slight thickening of the junction of the sigmoid colon with the descending colon which may represent colitis versus diverticulitis * Patient recently seen in the ER 10/26/23 with similar complaints and was found to have diverticulitis. She was started on Cipro and Flagyl at that time. She did have blood cultures from that date which are showing no growth on prel iminary read. She was discharged home the same day with instructions to follow up outpatient with GI * Continue pain and nausea control * Stool culture and C diff specimen obtained and is pending * Blood cultures obtained and are pending * Will switch to Zosyn to Flagyl and Cipro IV 10/31/23: * Continue pain and nausea control * Blood culture showing no growth today on preliminary read * Continues Flagyl and Cipro IV * Continue clear liquid diet * Continue IV fluids 11/01/23: * Zofran discontinued, Phenergan started last night and we will increase to 25 mg q.4 hour for better nausea control. * Continue with IV antibiotics and IV fluids * Advanced diet as tolerated * Blood cultures still showing no growth on preliminary read 11/02/23: * Reporting left flank pain that radiates to the abdomen * Blood cultures still showing no growth on preliminary read * CLD and advance diet as tolerated to Regular diet * GI consulted * Continue with IV antibiotics and IVF * potassium 3.1, will replace with 40 meq (2) Intractable nausea and vomiting: Code(s): R11.2 - Nausea with vomiting, unspecified Status: Acute Assessment and Plan: 10/30/23: * likely secondary to diverticulitis and chronic pancreatitis * Continue Zofran as needed for nausea * Start with Clear liquid diet 10/31/23: * Still reporting nausea vomiting and abdominal pain again today. * Will get a KUB to rule out ileus/obstruction * Continue with nausea and pain control 11/01/23: * Still reporting nausea and vomiting overnight * Zofran was discontinued and patient was started on Phenergan * We will increase her Phenergan to 25 mg q.4 for better control * KUB was negative for ileus/obstruction 11/02/23: * GI consulted (3) Intractable abdominal pain: Code(s): R10.9 - Unspecified abdominal pain Status: Acute Assessment and Plan: 10/30/23: * likely secondary to diverticulitis and chronic pancreatitis * Continue pain control 10/31/23: * No change to current treatment plan (4) Tobacco dependence: Code(s): F17.200 - Nicotine dependence, unspecified, uncomplicated Status: Acute Assessment and Plan: 10/30/23: * Current every day smoker, however she has cut back. * Smoking history of 40 years. 10/31/23: * No change (5) Emphysema, unspecified: Code(s): J43.9 - Emphysema, unspecified Status: Acute Assessment and Plan: 10/30/23: * Continue albuterol inhaler as needed for SOB/wheezing 10/31/23: * No change to current treatment plan (6) Severe protein-calorie malnutrition: Code(s): E43 - Unspecified severe protein-calorie malnutrition Status: Acute Assessment and Plan: 11/01/23: * BMI 14.9 40.7 kg * Likely due to chronic pancreatitis and possible gastroparesis due to marijuana use which causes her nausea, vomiting, abdominal pain * Advance diet as melisa
--- NOTE | 2023-11-02 15:34 | PM.IMPN ---
Progress Note: A&P Assessment and Plan (1) Diverticulitis: Code(s): K57.92 - Diverticulitis of intestine, part unspecified, without perforation or abscess without bleeding Status: Acute Assessment and Plan: 10/30/23: CT of the abdomen/pelvis shown slight thickening of the junction of the sigmoid colon with the descending colon which may represent colitis versus diverticulitis Patient recently seen in the ER 10/26/23 with similar complaints and was found to have diverticulitis. She was started on Cipro and Flagyl at that time. She did have blood cultures from that date which are showing no growth on preliminary read. She was discharged home the same day with instructions to follow up outpatient with GI Continue pain and nausea control Stool culture and C diff specimen obtained and is pending Blood cultures obtained and are pending Will switch to Zosyn to Flagyl and Cipro IV 10/31/23: Continue pain and nausea control Blood culture showing no growth today on preliminary read Continues Flagyl and Cipro IV Continue clear liquid diet Continue IV fluids 11/01/23: Zofran discontinued, Phenergan started last night and we will increase to 25 mg q.4 hour for better nausea control. Continue with IV antibiotics and IV fluids Advanced diet as tolerated Blood cultures still showing no growth on preliminary read 11/02/23: Reporting left flank pain that radiates to the abdomen Blood cultures still showing no growth on preliminary read CLD and advance diet as tolerated to Regular diet GI consulted Continue with IV antibiotics and IVF potassium 3.1, will replace with 40 meq (2) Intractable nausea and vomiting: Code(s): R11.2 - Nausea with vomiting, unspecified Status: Acute Assessment and Plan: 10/30/23: likely secondary to diverticulitis and chronic pancreatitis Continue Zofran as needed for nausea Start with Clear liquid diet 10/31/23: Still reporting nausea vomiting and abdominal pain again today. Will get a KUB to rule out ileus/obstruction Continue with nausea and pain control 11/01/23: Still reporting nausea and vomiting overnight Zofran was discontinued and patient was started on Phenergan We will increase her Phenergan to 25 mg q.4 for better control KUB was negative for ileus/obstruction 11/02/23: GI consulted (3) Intractable abdominal pain: Code(s): R10.9 - Unspecified abdominal pain Status: Acute Assessment and Plan: 10/30/23: likely secondary to diverticulitis and chronic pancreatitis Continue pain control 10/31/23: No change to current treatment plan (4) Tobacco dependence: Code(s): F17.200 - Nicotine dependence, unspecified, uncomplicated Status: Acute Assessment and Plan: 10/30/23: Current every day smoker, however she has cut back. Smoking history of 40 years. 10/31/23: No change (5) Emphysema, unspecified: Code(s): J43.9 - Emphysema, unspecified Status: Acute Assessment and Plan: 10/30/23: Continue albuterol inhaler as needed for SOB/wheezing 10/31/23: No change to current treatment plan (6) Severe protein-calorie malnutrition: Code(s): E43 - Unspecified severe protein-calorie malnutrition Status: Acute Assessment and Plan: 11/01/23: BMI 14.9 40.7 kg Likely due to chronic pancreatitis and possible gastroparesis due to marijuana use which causes her nausea, vomiting, abdominal pain Advance diet as tolerated, currently on clear liquid diet Will add supplements 11/02/23: No change to current treatment plan Time Spent With Patient Time with patient: 15 - 25 minutes Subjective Date/time seen: 11/02/23 15:34 Interval history: 10/30/23: This is a 68 year old female who presented to the hospital on 10/29/23 with complaints of abdominal pain and nausea. Work up in the hospital includes a CT of the abdomen/pelvis which shown slight thickening of the junction of the s
[2023-11-02] MEDS: POTASSIUM CHLORIDE 20 MEQ ER TABLET 40 MEQ PO (16:08)
[2023-11-02] MEDS: SODIUM CHLORIDE 0.9% INJ 10 ML (20:50)
[2023-11-02 21:29] VITALS: BP 146/78; PULSE 75; RESP 14; TEMP 36.2; O2SAT 97
[2023-11-02 23:23] VITALS: O2SAT 97
[2023-11-03] MEDS: SODIUM CHLORIDE 0.9% IV 1,000 ML 100 ML IV CONT (02:22)
[2023-11-03] MEDS: metroNIDAZOLE 500 MG/ISO 100ML 500 MG/100 ML BAG 100 MG IVPB (04:57)
[2023-11-03 05:11] VITALS: BP 146/73; PULSE 71; RESP 13; TEMP 36.6; O2SAT 98
[2023-11-03 06:43] LABS: Basophils Percent Auto 0.3 % (0.2-1.2); Eosinophils Absolute Auto 0.2 K/mm3 (0-0.3); Eosinophils Percent Auto 3.3 % (0-4.4); Hematocrit 36.2 % (37.0-47.0); Hemoglobin 11.4 g/dL (12.0-15.0); Immature Granulocyte Absolute 0.02 K/mm3 (0.00-0.031); Immature Granulocyte Percent A 0.3 % (0-0.5); Lymphocytes Absolute Auto 0.96 K/mm3 (0.9-3.2); Mean Corpuscular HGB Conc 31.5 g/dl (32-36); Mean Corpuscular Hemoglobin 27.9 pg (26-34); Mean Corpuscular Volume 88.7 fl (80-100); Mean Platelet Volume 10.3 fl (7.4-10.4); Monocytes Absolute Auto 0.6 K/mm3 (0.1-0.6); Monocytes Percent Auto 8.9 % (2.6-8.5); Neutrophils Absolute Auto 4.6 K/mm3 (1.3-6.7); Neutrophils Percent Auto 72.2 % (45.5-73.1); Platelet Count Result 215 k/mm3 (150-375); Red Blood Count 4.08 M/mm3 (4.2-5.4); Red Cell Distribution Width 14.6 % (11.5-14.5); White Blood Count 6.4 K/mm3 (4.5-10.0)
[2023-11-03 06:46] LABS: Alanine Aminotransferase 32 U/L (6-35); Albumin Level 3.2 g/dL (3.5-5.1); Alkaline Phosphatase 48 U/L (38-126); Anion Gap 5 mmol/L (4-12); Aspartate Amino Transferase 49 U/L (14-36); Bilirubin,Total 0.8 mg/dL (0.2-1.3); Blood Urea Nitrogen 3 mg/dL (7-17); Calcium 8.3 mg/dL (8.4-10.2); Carbon Dioxide 24 mmol/L (22-30); Chloride 109 mmol/L (98-107); Estimated CRCL calculation 42 ml/min; Estimated Glomerular Filt Rate > 60; Glucose 84 mg/dL (65-110); Potassium 3.6 mmol/L (3.4-5.0); Sodium 138 mmol/L (137-145)
--- NOTE | 2023-11-03 07:45 | P.PNIM_ITS ---
Progress Note: A&P Assessment and Plan (1) Diverticulitis: Code(s): K57.92 - Diverticulitis of intestine, part unspecified, without perforation or abscess without bleeding Status: Acute Assessment and Plan: 10/30/23: * CT of the abdomen/pelvis shown slight thickening of the junction of the sigmoid colon with the descending colon which may represent colitis versus diverticulitis * Patient recently seen in the ER 10/26/23 with similar complaints and was found to have diverticulitis. She was started on Cipro and Flagyl at that time. She did have blood cultures from that date which are showing no growth on prel iminary read. She was discharged home the same day with instructions to follow up outpatient with GI * Continue pain and nausea control * Stool culture and C diff specimen obtained and is pending * Blood cultures obtained and are pending * Will switch to Zosyn to Flagyl and Cipro IV 10/31/23: * Continue pain and nausea control * Blood culture showing no growth today on preliminary read * Continues Flagyl and Cipro IV * Continue clear liquid diet * Continue IV fluids 11/01/23: * Zofran discontinued, Phenergan started last night and we will increase to 25 mg q.4 hour for better nausea control. * Continue with IV antibiotics and IV fluids * Advanced diet as tolerated * Blood cultures still showing no growth on preliminary read 11/02/23: * Reporting left flank pain that radiates to the abdomen * Blood cultures still showing no growth on preliminary read * CLD and advance diet as tolerated to Regular diet * GI consulted * Continue with IV antibiotics and IVF * potassium 3.1, will replace with 40 meq 11/03/23: * Still reporting nausea, left flank pain, and abdominal pain * IV fluids stopped * Antibiotics changed to oral * GI following * Clear liquid diet and advance diet as tolerated to regular * Blood cultures are negative * Potassium 3.6 today, no replacement needed (2) Intractable nausea and vomiting: Code(s): R11.2 - Nausea with vomiting, unspecified Status: Acute Assessment and Plan: 10/30/23: * likely secondary to diverticulitis and chronic pancreatitis * Continue Zofran as needed for nausea * Start with Clear liquid diet 10/31/23: * Still reporting nausea vomiting and abdominal pain again today. * Will get a KUB to rule out ileus/obstruction * Continue with nausea and pain control 11/01/23: * Still reporting nausea and vomiting overnight * Zofran was discontinued and patient was started on Phenergan * We will increase her Phenergan to 25 mg q.4 for better control * KUB was negative for ileus/obstruction 11/02/23: * GI consulted 11/03/23: * No change to current treatment plan (3) Intractable abdominal pain: Code(s): R10.9 - Unspecified abdominal pain Status: Acute Assessment and Plan: 10/30/23: * likely secondary to diverticulitis and chronic pancreatitis * Continue pain control 10/31/23: * No change to current treatment plan (4) Tobacco dependence: Code(s): F17.200 - Nicotine dependence, unspecified, uncomplicated Status: Acute Assessment and Plan: 10/30/23: * Current every day smoker, however she has cut back. * Smoking history of 40 years. 10/31/23: * No change (5) Emphysema, unspecified: Code(s): J43.9 - Emphysema, unspecified Status: Acute Assessment and Plan: 10/30/23: * Continue albuterol inhaler as needed for SOB/wheezing 10/31/23: * No change to current treatment plan (6) Sever
--- NOTE | 2023-11-03 07:45 | PM.IMPN ---
Progress Note: A&P Assessment and Plan (1) Diverticulitis: Code(s): K57.92 - Diverticulitis of intestine, part unspecified, without perforation or abscess without bleeding Status: Acute Assessment and Plan: 10/30/23: CT of the abdomen/pelvis shown slight thickening of the junction of the sigmoid colon with the descending colon which may represent colitis versus diverticulitis Patient recently seen in the ER 10/26/23 with similar complaints and was found to have diverticulitis. She was started on Cipro and Flagyl at that time. She did have blood cultures from that date which are showing no growth on preliminary read. She was discharged home the same day with instructions to follow up outpatient with GI Continue pain and nausea control Stool culture and C diff specimen obtained and is pending Blood cultures obtained and are pending Will switch to Zosyn to Flagyl and Cipro IV 10/31/23: Continue pain and nausea control Blood culture showing no growth today on preliminary read Continues Flagyl and Cipro IV Continue clear liquid diet Continue IV fluids 11/01/23: Zofran discontinued, Phenergan started last night and we will increase to 25 mg q.4 hour for better nausea control. Continue with IV antibiotics and IV fluids Advanced diet as tolerated Blood cultures still showing no growth on preliminary read 11/02/23: Reporting left flank pain that radiates to the abdomen Blood cultures still showing no growth on preliminary read CLD and advance diet as tolerated to Regular diet GI consulted Continue with IV antibiotics and IVF potassium 3.1, will replace with 40 meq 11/03/23: Still reporting nausea, left flank pain, and abdominal pain IV fluids stopped Antibiotics changed to oral GI following Clear liquid diet and advance diet as tolerated to regular Blood cultures are negative Potassium 3.6 today, no replacement needed (2) Intractable nausea and vomiting: Code(s): R11.2 - Nausea with vomiting, unspecified Status: Acute Assessment and Plan: 10/30/23: likely secondary to diverticulitis and chronic pancreatitis Continue Zofran as needed for nausea Start with Clear liquid diet 10/31/23: Still reporting nausea vomiting and abdominal pain again today. Will get a KUB to rule out ileus/obstruction Continue with nausea and pain control 11/01/23: Still reporting nausea and vomiting overnight Zofran was discontinued and patient was started on Phenergan We will increase her Phenergan to 25 mg q.4 for better control KUB was negative for ileus/obstruction 11/02/23: GI consulted 11/03/23: No change to current treatment plan (3) Intractable abdominal pain: Code(s): R10.9 - Unspecified abdominal pain Status: Acute Assessment and Plan: 10/30/23: likely secondary to diverticulitis and chronic pancreatitis Continue pain control 10/31/23: No change to current treatment plan (4) Tobacco dependence: Code(s): F17.200 - Nicotine dependence, unspecified, uncomplicated Status: Acute Assessment and Plan: 10/30/23: Current every day smoker, however she has cut back. Smoking history of 40 years. 10/31/23: No change (5) Emphysema, unspecified: Code(s): J43.9 - Emphysema, unspecified Status: Acute Assessment and Plan: 10/30/23: Continue albuterol inhaler as needed for SOB/wheezing 10/31/23: No change to current treatment plan (6) Severe protein-calorie malnutrition: Code(s): E43 - Unspecified severe protein-calorie malnutrition Status: Acute Assessment and Plan: 11/01/23: BMI 14.9 40.7 kg Likely due to chronic pancreatitis and possible gastroparesis due to marijuana use which causes her nausea, vomiting, abdominal pain Advance diet as tolerated, currently on clear liquid diet Will add supplements 11/02/23: No change to current treatment plan 11/03/23: Will start Marinol for appetite st
[2023-11-03] MEDS: PROCHLORPERAZINE MALEATE 5 MG TABLET 10 MG PO ×3 (08:29→20:42)
[2023-11-03] MEDS: HYDROcodone/acetaminophen (*CRX) 5-325 MG TABLET 1 TAB PO ×3 (08:29→20:41)
[2023-11-03] MEDS: FAMOTIDINE 20 MG TABLET PO (08:30)
[2023-11-03] MEDS: ENOXAPARIN 40 MG/0.4 ML SYRINGE SUB-Q (08:30)
[2023-11-03] MEDS: CIPROFLOXACIN 500 MG TAB PO ×2 (08:30→20:46)
[2023-11-03] MEDS: ATORVASTATIN 20 MG TABLET PO (08:30)
[2023-11-03] MEDS: LOSARTAN POTASSIUM 25 MG TABLET PO (08:30)
[2023-11-03] MEDS: PANTOPRAZOLE 40 MG TABLET PO (08:30)
[2023-11-03] MEDS: LIPASE/AMYLASE/PROTEASE 12,000 UNITS CAP 2 CAP PO ×3 (08:30→17:00)
[2023-11-03] MEDS: droNABinol (*CRX) 2.5 MG CAPSULE PO ×2 (09:56→17:00)
[2023-11-03] MEDS: HYDROcodone/acetaminophen (*CRX) 10-325 MG TABLET 1 TAB PO (12:15)
[2023-11-03 14:00] VITALS: BP 132/88; PULSE 78; RESP 20; TEMP 35.6; O2SAT 96
[2023-11-03] MEDS: metroNIDAZOLE 500 MG TABLET PO ×2 (14:00→20:41)
[2023-11-03 20:00] VITALS: O2SAT 96
[2023-11-03] MEDS: traZODone HCL 50 MG TABLET 100 MG BY MOUTH (20:41)
[2023-11-03 22:00] VITALS: BP 137/79; PULSE 70; RESP 14; TEMP 36.2; O2SAT 94
[2023-11-04 05:35] VITALS: BP 150/82; PULSE 105; RESP 14; TEMP 36.5; O2SAT 93
[2023-11-04] MEDS: LINACLOTIDE 72 MCG CAPSULE PO (06:07)
[2023-11-04] MEDS: metroNIDAZOLE 500 MG TABLET PO (06:07)
[2023-11-04] MEDS: HYDROcodone/acetaminophen (*CRX) 5-325 MG TABLET 1 TAB PO (06:07)
[2023-11-04 06:12] LABS: Basophils Percent Auto 0.4 % (0.2-1.2); Eosinophils Absolute Auto 0.2 K/mm3 (0-0.3); Eosinophils Percent Auto 2.1 % (0-4.4); Hematocrit 35.3 % (37.0-47.0); Hemoglobin 11.2 g/dL (12.0-15.0); Immature Granulocyte Absolute 0.02 K/mm3 (0.00-0.031); Immature Granulocyte Percent A 0.3 % (0-0.5); Lymphocytes Absolute Auto 0.46 K/mm3 (0.9-3.2); Lymphocytes Percent Auto 6.5 % (18.3-44.2); Mean Corpuscular HGB Conc 31.7 g/dl (32-36); Mean Corpuscular Hemoglobin 27.9 pg (26-34); Mean Platelet Volume 10.4 fl (7.4-10.4); Monocytes Absolute Auto 0.6 K/mm3 (0.1-0.6); Monocytes Percent Auto 8.6 % (2.6-8.5); Neutrophils Absolute Auto 5.8 K/mm3 (1.3-6.7); Neutrophils Percent Auto 82.1 % (45.5-73.1); Platelet Count Result 206 k/mm3 (150-375); Red Blood Count 4.01 M/mm3 (4.2-5.4); Red Cell Distribution Width 14.4 % (11.5-14.5); White Blood Count 7.1 K/mm3 (4.5-10.0)
[2023-11-04 06:28] LABS: Alanine Aminotransferase 34 U/L (6-35); Albumin Level 3.3 g/dL (3.5-5.1); Alkaline Phosphatase 55 U/L (38-126); Anion Gap 5 mmol/L (4-12); Aspartate Amino Transferase 48 U/L (14-36); Bilirubin,Total 0.9 mg/dL (0.2-1.3); Blood Urea Nitrogen 7 mg/dL (7-17); Calcium 8.7 mg/dL (8.4-10.2); Carbon Dioxide 26 mmol/L (22-30); Chloride 105 mmol/L (98-107); Estimated CRCL calculation 42 ml/min; Estimated Glomerular Filt Rate > 60; Glucose 109 mg/dL (65-110); Potassium 3.1 mmol/L (3.4-5.0); Sodium 136 mmol/L (137-145)
[2023-11-04] MEDS: CIPROFLOXACIN 500 MG TAB PO (09:05)
[2023-11-04] MEDS: polyethylene glycoL 3350 17 GM POWD.PACK PO (09:05)
[2023-11-04] MEDS: droNABinol (*CRX) 2.5 MG CAPSULE PO (09:05)
[2023-11-04] MEDS: PANTOPRAZOLE 40 MG TABLET PO (09:05)
[2023-11-04] MEDS: LOSARTAN POTASSIUM 25 MG TABLET PO (09:05)
[2023-11-04] MEDS: LIPASE/AMYLASE/PROTEASE 12,000 UNITS CAP 2 CAP PO (09:05)
[2023-11-04] MEDS: PROCHLORPERAZINE MALEATE 5 MG TABLET 10 MG PO (09:05)
[2023-11-04] MEDS: ATORVASTATIN 20 MG TABLET PO (09:05)
[2023-11-04] MEDS: FAMOTIDINE 20 MG TABLET PO (09:05)
[2023-11-04] MEDS: ENOXAPARIN 40 MG/0.4 ML SYRINGE SUB-Q (09:08)
[2023-11-04] MEDS: POTASSIUM CHLORIDE 20 MEQ ER TABLET 40 MEQ PO (11:00)
--- NOTE | 2023-11-04 15:22 | PM.DS ---
DS: Admitting Diagnosis Discharge Date 11/04/23 Admitting Diagnosis Diverticulitis Intractable nausea vomiting Intractable abdominal pain Chronic pancreatitis Tobacco dependence Emphysema DS: Discharge Diagnosis Discharge Diagnosis (1) Diverticulitis: Code(s): K57.92 - Diverticulitis of intestine, part unspecified, without perforation or abscess without bleeding Status: Acute (2) Intractable nausea and vomiting: Code(s): R11.2 - Nausea with vomiting, unspecified Status: Acute (3) Intractable abdominal pain: Code(s): R10.9 - Unspecified abdominal pain Status: Acute (4) Tobacco dependence: Code(s): F17.200 - Nicotine dependence, unspecified, uncomplicated Status: Acute (5) Emphysema, unspecified: Code(s): J43.9 - Emphysema, unspecified Status: Acute (6) Severe protein-calorie malnutrition: Code(s): E43 - Unspecified severe protein-calorie malnutrition Status: Acute DS: Summary Hospital Course Reason for hospitalization: Diverticulitis Intractable nausea vomiting Intractable abdominal pain Chronic pancreatitis Tobacco dependence Emphysema Hospital Course: This is a 68 year old female who presented to the hospital on 10/29/23 with complaints of abdominal pain and nausea. Work up in the hospital includes a CT of the abdomen/pelvis which shown slight thickening of the junction of the sigmoid colon with the descending colon representing colitis versus diverticulitis, tiny bilateral renal cysts. Initial WBC 7.7, bicarb 20, liver enzymes were normal, lipase normal at 68. UA was obtained and shown 1+ urine ketones otherwise negative. UDS was positive for cannabinoids. Blood cultures were obtained and are pending. Stool and C diff ordered and was collected. Patient was given 1L NS, Zosyn, pain medications and Zofran while in the ER. She was started on IVF and clear liquid diet. Of note patient was seen in the ER on 10/26/[address] of the abdomen/pelvis shown uncomplicated sigmoid diverticulitis, pancreatic ductal dilation with scattered dystrophic calcific lesions consistent with chronic pancreatitis. Blood cultures were obtained and showing no growth. Total bili was elevated at 1.8, Lactic acid 1.2, CRP 3.3 at that time. While in the ER she received a fluid bolus, Zofran. Patient was discharged home on Cipro and Flagyl for 5-10 days. She was told to follow up with GI on an outpatient basis. Patient was started on Cipro Flagyl IV, electrolytes were replaced, pain and nausea was controlled with medication. Patient started advancing her diet yesterday and was able to hold down food and fluid. She was transition to oral medication today and will be discharged home. She will need to follow up with her primary care physician in 1 week along with the GI physician in 2 weeks. She did have a mole on her lower abdomen with a regular border that she was concerned about and she will be referred to Dermatology for further workup. Final diagnosis: Diverticulitis, gastroparesis, severe protein calorie malnutrition Status at Discharge Cognitive/behavioral status at discharge: Alert oriented x3 Functional status at discharge: independent ambulation Overall status at discharge: patient is progressing back to baseline Time Spent with Patient Time attestation: Total time spent providing and/or coordinating discharge services: Time spent: Greater than 30 minutes Exam Narrative: General: In no acute distress, malnourished Cardiac: Normal S1 and S2. RRR, No murmur, gallops or friction rubs, peripheral pulses intact. Respiratory: Lungs clear to auscultation, no adventitious lung sounds, currently on room air Gastrointestinal: soft, non-distended, left flank and abdominal pain, hypoactive bowel sounds. : voiding without difficulty. Neuro: Alert and oriented x4 Psych: Interactive DS: Data Data Completed and Pending Completed studies during hospitali
== END 2023-11-04 14:20 | disposition home or self-care (01) | DRG 391 ==
LOC: ANHED 22:27 → ANH3MEDSUR 23:28
PROVIDERS: Emergency Medicine; Admitting Provider Internal Medicine; Emergency Provider Physician Assistant; PCP Family Medicine; Visit Provider Nurse Practitioner Acute Care
DX: K57.32 Diverticulitis of large intestine without perforation or abscess without bleeding (principal); E43 Unspecified severe protein-calorie malnutrition; K86.1 Other chronic pancreatitis; Z68.1 Body mass index [BMI] 19.9 or less, adult; I70.8 Atherosclerosis of other arteries; I10 Essential (primary) hypertension; I73.9 Peripheral vascular disease, unspecified; E78.00 Pure hypercholesterolemia, unspecified; J43.9 Emphysema, unspecified; R11.2 Nausea with vomiting, unspecified; K31.84 Gastroparesis; K21.9 Gastro-esophageal reflux disease without esophagitis; K58.1 Irritable bowel syndrome with constipation; M19.90 Unspecified osteoarthritis, unspecified site; F12.90 Cannabis use, unspecified, uncomplicated; F10.21 Alcohol dependence, in remission; F31.9 Bipolar disorder, unspecified; F41.9 Anxiety disorder, unspecified; F11.11 Opioid abuse, in remission; Z86.19 Personal history of other infectious and parasitic diseases; Z80.0 Family history of malignant neoplasm of digestive organs
CPT/HCPCS: 36415; 74018; 74177; 76775; 80053; 80307; 81003; 83605; 83690; 85025; 87040; 96365; 96366; 96367; 96375; 96376; 99285; A9270; C9113; G0378; J0744; J1170; J1650; J1836; J2405; J2543; J2550; J7030; Q9967

== ENCOUNTER 2024-02-14 10:05 | Outpatient (CLI) | payer MEDICARE, SELFPAY ==
--- NOTE | ~2024-02-14 | MR_ITS ---
MRI of the lumbar spine Clinical History: Back pain Technique: Axial T2-weighted images, and sagittal T1-weighted, T2-weighted, and T2 fat-sat images wer e acquired. COMPARISON: 08/09/2021 Findings: No acute fracture noted. Stable minimal grade 1 retrolisthesis of L2 over L3. No suspicious bone marrow signal abnormality seen. At L1-L2, there is moderate degenerative disc narrowing. There is minimal disc bulge and moderate fac et arthropathy. No central canal stenosis. There is mild left neural foraminal narrowing. Right neura l foramen preserved. At L2-L3, there is moderate degenerative disc narrowing. There is mild diffuse disc bulge and severe facet arthropathy. There is no shavon central canal stenosis. There is severe right neural foraminal n arrowing, and moderate left neural foraminal narrowing. At L3-L4, there is mild disc bulge with moderate to advanced facet arthropathy. No shavon central lukas l stenosis. There is severe bilateral neural foraminal narrowing. At L4-L5, there is disc bulge with severe facet arthropathy. No central canal stenosis. There is mode rate bilateral neural foraminal narrowing. At L5-S1, there is mild disc bulge with severe facet arthropathy. No central canal stenosis. There is moderate to severe bilateral neural foraminal narrowing, left worse than right. Paravertebral soft tissues are unremarkable. Impression: Moderate to advanced degenerative spondylosis, as above. Reviewed, dictated and finalized at [facility]. Impression: Moderate to advanced degenerative spondylosis, as above.
--- NOTE | ~2024-02-14 | MR_ITS ---
EXAMINATION: MR brain/brain stem wo con DATE: 02/14/2024 10:46 INDICATION: Headache. TECHNIQUE: Magnetic resonance imaging (MRI) of the brain and brainstem was performed without intraven ous contrast. COMPARISON: Brain MRI 01/04/2018 FINDINGS: There are scattered areas of nonspecific increased T2-weighted signal intensity in the cere bral white matter. There is no intracranial hemorrhage, acute infarction, or abnormal intracranial ma ss lesion. The ventricles are normal in size. The paranasal sinuses are clear. The orbits are normal. The mastoid air cells are normal. IMPRESSION: 1. Worsened mild nonspecific cerebral white matter disease, which likely represents chronic small ves abbi ischemic disease. Reviewed, dictated and finalized at [facility]. IMPRESSION: 1. Worsened mild nonspecific cerebral white matter disease, which likely repres ents chronic small vessel ischemic disease.
--- NOTE | ~2024-02-14 | CT_ITS ---
CT Scan of the Chest without Contrast: Clinical Indication: Lung cancer screening, nicotine dependence Technique: Contiguous sections were acquired throughout the chest without intravenous contrast. Dose reduction technique was used on this scan by utilizing automated exposure control and iterative recon struction technique. The dose-length product (DLP) was 38.52 mGy-cm. COMPARISON: 01/19/2023 Findings: There is no evidence of any significant mediastinal, hilar or axillary lymphadenopathy. The mediastin al soft tissues appear normal. There is no evidence of pleural or pericardial effusion. Stable biapical scarring. Advanced emphysema present. Subcentimeter nodules at the lingula and right middle lobe are unchanged. Images through the upper abdomen reveal no abnormalities. Impression: Lung RADS 2: Benign appearance. 12 month follow-up screening CT advised. Reviewed, dictated and finalized at [facility]. Impression: Lung RADS 2: Benign appearance. 12 month follow-up screening CT advised.
== END 2024-02-14 10:06 | disposition home or self-care (01) ==
PROVIDERS: PCP Family Medicine; Visit Provider Family Medicine
DX: Z12.2 Encounter for screening for malignant neoplasm of respiratory organs (principal); Z87.891 Personal history of nicotine dependence; M47.896 Other spondylosis, lumbar region; M47.897 Other spondylosis, lumbosacral region; R90.82 White matter disease, unspecified
CPT/HCPCS: 70551; 71271; 72148

== ENCOUNTER 2024-04-29 09:29 | Emergency (ER) | payer MEDICARE, SELFPAY ==
--- NOTE | 2024-04-29 10:07 | ED_ITS ---
HPI - URI/Sore Throat General Stated Complaint: Right Hand Finger Pain Source: patient, RN notes reviewed and old records reviewed Mode of arrival: ambulatory Limitations: no limitations Related Data Allergies Allergy/AdvReac Type Severity Reaction Status Date / Time gabapentin AdvReac Severe Loss of Verified 02/28/24 10:56 Balance codeine AdvReac Mild Nausea Verified 02/28/24 10:56 propoxyphene (From AdvReac Mild Nausea Verified 02/28/24 10:56 Darvocet-N) Review of Systems Review of Systems: All systems reviewed & are unremarkable except as noted in HPI and below Constitutional: Constitutional: Reports no additional constitutional complaints ENT: Reports system reviewed and no additional complaints, except as documented Cardiovascular: Cardiovascular: Reports no additional cardiovascular complaints Respiratory: Respiratory: Reports no additional respiratory complaints Gastrointestinal: Gastrointestinal: Reports no additional gastrointestinal complaints PMFSH Past Medical History Medical History Anxiety Arthritis 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 Bipolar 1 disorder Cataracts, bilateral Not yet extracted Change in bowel function Chills Chronic pancreatitis Chronic UTI Constipation COPD (chronic obstructive pulmonary disease) COVID-19 Depression Difficulty breathing Difficulty sleeping Diverticulitis large intestine Dizziness Emphysema, unspecified GERD (gastroesophageal reflux disease) Hepatitis Hepatitis C She stated was treated with injections History of alcohol dependence History of heroin abuse Hot flashes Hx of hepatitis C Hypercholesteremia Hypertension Irritable bowel syndrome (IBS) Numbness Pancreatitis PVD (peripheral vascular disease) SBO (small bowel obstruction) Schizo affective schizophrenia Seizures Due to abrupt withdrawal of clonazepam Tobacco dependence Surgical History Surgical History H/O laparoscopy History of colectomy With adhesiolysis History of colon resection History of colonoscopy 2021 History of hysterectomy Hx of hysterectomy Hx of tubal ligation Family History Family History Mother Carcinoma of colon Cancer Diabetes mellitus Father Diabetes mellitus Cerebrovascular accident Hypertension Father Family history of diabetes mellitus in first degree relative Hypertension Cerebrovascular accident Mother Family history of diabetes mellitus in first degree relative Colon polyp Carcinoma of colon Sibling Hypertension Cancer Social History Social History Social History: The patient stated that she is down to about 4-5 cigarettes a day. Patient stated she continues to smoke marijuana but is not on a daily basis anymore like it used to be. She denies any alcohol. She formerly used heroin when she was younger. She is disabled. Her youngest son is Chase. The patient desires to be a full code. Smoking packs per day: 0.1 Smoking cigarettes per day: 2.0 Years smoked: 40 Smoking pack-years: 4.00 Smoking status: Current every day smoker Tobacco type: cigarettes Second hand tobacco smoke exposure: Yes Additional smoking assessment comments: She has smoked for over 40 years. Alcohol intake: never Alcohol use details: history of etoh dependence Substance use: never Substance use type: marijuana Other substance usage details: 3x Daily Do You Feel Safe in your Home?: Yes Lack of Transportation: YES Lack of Food: Never True Current Housing: I Have Housing Concerned About Future Housing: No Difficulty Paying Gas/Electric Bills: No Difficulty Paying for Meds: No Currently Unemployed: No Education: Grade School Difficulty w/ Childcare or Family Care: No Living arrangements: with family Additional living arrangements comments: son Chase lives with her Occupation/Education: other Additional occupation/education comments: disabled Gender identity (if verbalized by the patient): Female Spiritual care concerns: No Agree to blood products: Yes Comments At the time of my signature, I reviewed and agree with the nursing past medical, surgical, social, and family history. There is no relevant family history pertinent to the patient complaint. Exam Const: General: cooperative, no acute distress, alert and awake Orientation/consciousness: oriented to person, oriented to place and oriented to time HENMT: Head: normal to inspection Resp: Effort & Inspection: normal respiratory effort and able to speak in complete sentences Auscultation: clear to auscultation bilaterally, no crackles, no rales, no rhonchi and no wheezes Cardio: Palpation: normal PMI Rate: regular rate Rhythm: regular rhythm Heart sounds: S1 normal heart sound present and S2 normal heart sound present Neuro: General: oriented to person, oriented to place and oriented to time Cranial nerves: Yes CN's II-XII intact bilaterally Psych: Appearance: grossly normal Thought process: Normal thought process present Insight: Good insight present (Psych) Judgement: Good judgement present (Psych) Course Course Level of Care: Express Care Visit Vital Signs Vital signs: Reviewed Discharge Plan Discharge Patient Language: Citizen Of [place] Prescriptions: No Action albuterol sulfate 90 mcg/actuation HFA aerosol inhaler 2 puff inhalation Q4-6H PRN (Reason: shortness of breath or wheezing) 30 Days Qty: 8.5 3RF atorvastatin 20 mg tablet 20 mg PO DAILY Qty: 90 1RF losartan 50 mg tablet 50 mg PO DAILY Qty: 90 1RF psyllium husk 3 gram/3 gram powder 30 g PO DAILY Qty: 340 0RF polyethylene glycol 3350 17 gram/dose powder 17 g PO DAILY Qty: 119 0RF docusate sodium 100 mg capsule 100 mg PO BID Qty: 20 0RF bisacodyl 10 mg suppository 10 mg RECTAL DAILY PRN (Reason: constipation) Qty: 12 0RF Linzess 145 mcg capsule 145 mcg PO QAM Qty: 90 0RF cholecalciferol (vitamin D3) 1,250 mcg (50,000 unit) capsule 1,250 mcg PO WEEKLY Qty: 14 1RF acetaminophen 500 mg capsule 1,000 mg PO Q6H PRN (Reason: pain) Qty: 30 0RF ibuprofen 600 mg tablet 600 mg PO TID PRN (Reason: pain) Qty: 30 0RF prochlorperazine maleate 5 mg Tablet 10 mg PO Q6H PRN (Reason: Nausea And Vomiting) Qty: 30 0RF metronidazole 500 mg Tablet 500 mg PO Q8HR Qty: 10 0RF ciprofloxacin HCl 500 mg Tablet 500 mg PO Q12HR Qty: 7 0RF Creon 24,000-76,000 -120,000 unit capsule,delayed release(DR/EC) 1 cap PO TID Qty: 180 5RF Rx Instructions: administer with meals and/or snacks trazodone 100 mg tablet See Rx Instructions .ROUTE .COMPLEX Qty: 90 1RF Dose Instruction: TAKE 1 TABLET BY MOUTH ONCE DAILY Rx Instructions: TAKE 1 TABLET BY MOUTH ONCE DAILY tramadol 50 mg tablet 50 mg PO Q6H PRN (Reason: pain) Qty: 30 0RF famotidine 20 mg tablet See Rx Instructions .ROUTE .COMPLEX Qty: 90 3RF Dose Instruction: TAKE 1 TABLET BY MOUTH DAILY Rx Instructions: TAKE 1 TABLET BY MOUTH DAILY Follow-up/Referrals: Dannie Tucker MD [Primary Care Provider] -
--- NOTE | 2024-04-29 10:11 | ED_ITS ---
HPI - Extremity Injury (Upper) General Chief Complaint: Extremity Injury, Upper Stated Complaint: Right Hand Finger Pain Time Seen by Provider: 04/29/24 10:11 Source: patient, RN notes reviewed and old records reviewed Mode of arrival: ambulatory Limitations: no limitations History of Present Illness HPI narrative: Patient presents with complaints of pain and swelling surrounding the nail of the right 3rd digit. She reports that she injured the site a couple of weeks ago, now has had some intermittent drainage, increased redness, tenderness, swelling. She denies any fever, chills, sweats. Denies other injury and trauma. Voices no other concerns or complaints today Related Data Allergies Allergy/AdvReac Type Severity Reaction Status Date / Time gabapentin AdvReac Severe Loss of Verified 04/29/24 10:11 Balance codeine AdvReac Mild Nausea Verified 04/29/24 10:11 propoxyphene (From AdvReac Mild Nausea Verified 04/29/24 10:11 Darvocet-N) Review of Systems 2 Review of Systems: All systems reviewed & are unremarkable except as noted in HPI and below Constitutional: Constitutional: Reports no additional constitutional complaints ENT: Reports system reviewed and no additional complaints, except as documented Cardiovascular: Cardiovascular: Reports no additional cardiovascular complaints Respiratory: Respiratory: Reports no additional respiratory complaints Gastrointestinal: Gastrointestinal: Reports no additional gastrointestinal complaints Integumentary/Breasts: Skin/Breast: Reports system reviewed and no additional complaints, except as docu and Reports as per HPI [facility] Past Medical History Medical History Anxiety Arthritis 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 Bipolar 1 disorder Cataracts, bilateral Not yet extracted Change in bowel function Chills Chronic pancreatitis Chronic UTI Constipation COPD (chronic obstructive pulmonary disease) COVID-19 Depression Difficulty breathing Difficulty sleeping Diverticulitis large intestine Dizziness Emphysema, unspecified GERD (gastroesophageal reflux disease) Hepatitis Hepatitis C She stated was treated with injections History of alcohol dependence History of heroin abuse Hot flashes Hx of hepatitis C Hypercholesteremia Hypertension Irritable bowel syndrome (IBS) Numbness Pancreatitis PVD (peripheral vascular disease) SBO (small bowel obstruction) Schizo affective schizophrenia Seizures Due to abrupt withdrawal of clonazepam Tobacco dependence Surgical History Surgical History History of colonoscopy 2021 History of colectomy With adhesiolysis History of hysterectomy Hx of tubal ligation History of colon resection H/O laparoscopy Hx of hysterectomy Family History Family History Mother Carcinoma of colon Cancer Diabetes mellitus Father Diabetes mellitus Cerebrovascular accident Hypertension Father Family history of diabetes mellitus in first degree relative Hypertension Cerebrovascular accident Mother Family history of diabetes mellitus in first degree relative Colon polyp Carcinoma of colon Sibling Hypertension Cancer Social History Social History Social History: The patient stated that she is down to about 4-5 cigarettes a day. Patient stated she continues to smoke marijuana but is not on a daily basis anymore like it used to be. She denies any alcohol. She formerly used heroin when she was younger. She is disabled. Her youngest son is Chase. The patient desires to be a full code. Smoking packs per day: 0.1 Smoking cigarettes per day: 2.0 Years smoked: 40 Smoking pack-years: 4.00 Smoking status: Current every day smoker Tobacco type: cigarettes Second hand tobacco smoke exposure: Yes Additional smoking assessment comments: She has smoked for over 40 years. Alcohol intake: never Alcohol use details: history of etoh dependence Substance use: never Substance use type: marijuana Other substance usage details: 3x Daily Do You Feel Safe in your Home?: Yes Lack of Transportation: YES Lack of Food: Never True Current Housing: I Have Housing Concerned About Future Housing: No Difficulty Paying Gas/Electric Bills: No Difficulty Paying for Meds: No Currently Unemployed: No Education: Grade School Difficulty w/ Childcare or Family Care: No Living arrangements: with family Additional living arrangements comments: son Chase lives with her Occupation/Education: other Additional occupation/education comments: disabled Gender identity (if verbalized by the patient): Female Spiritual care concerns: No Agree to blood products: Yes Comments At the time of my signature, I reviewed and agree with the nursing past medical, surgical, social, and family history. There is no relevant family history pertinent to the patient complaint. Exam 2 Const: General: cooperative, no acute distress, alert and awake O rientation/consciousness: oriented to person, oriented to place and oriented to time HENMT: Head: normal to inspection Resp: Effort & Inspection: normal respiratory effort and able to speak in complete sentences Auscultation: clear to auscultation bilaterally, no crackles, no rales, no rhonchi and no wheezes Cardio: Palpation: normal PMI Rate: regular rate Rhythm: regular rhythm Heart sounds: S1 normal heart sound present and S2 normal heart sound present Skin: Full body images: 1. Redness, tenderness, swelling, pustule Neuro: General: oriented to person, oriented to place and oriented to time Cranial nerves: Yes CN's II-XII intact bilaterally Psych: Appearance: grossly normal Thought process: Normal thought process present Insight: Good insight present (Psych) Judgement: Good judgement present (Psych) Course Course Level of Care: Express Care Visit Vital Signs Vital signs: Reviewed Procedures Abscess I/D hand: Date of Incision: 04/29/24 Time of Incision: 10:20 Side (if applicable): right Technique: needle aspiration Amount of fluid expressed (mL): 2 Abcess I&D Additional Comments: Paronychia right 3rd did MDM - Extremity Injury (Upper) MDM Narrative Medical decision making narrative: Paronychia easily drained with 18 gauge needle. Start doxycycline b.i.d.. Patient nontoxic appearing, stable for discharge home on p.o. antibiotic therapy. Discharge instructions reviewed with patient, as well as provided in writing per nursing staff. The instructions also include specific and strict return/GO TO THE ER as well as f/u information. All questions have been answered, and the patient deny any further questions with discharge and discharge plan. Some parts of this dictation were generated by voice recognition software and may contain typographical and/or grammatical inaccuracies. Differential Diagnosis Differential diagnosis: Likely other (Abscess, cellulitis) Medical Records Attestation: I reviewed the patient's medical records. Discharge Plan Discharge Clinical Impression: Paronychia Patient Disposition: Home, Self-Care Condition: Stable Instructions: Antibiotic Form, Abscess (ED) Additional Instructions: Take medications as prescribed. Follow with primary care provider. Emergency department for new or worse symptoms Patient Language: [place] Prescriptions: New doxycycline hyclate 100 mg capsule 100 mg PO BID Qty: 14 0RF No Action albuterol sulfate 90 mcg/actuation HFA aerosol inhaler 2 puff inhalation Q4-6H PRN (Reason: shortness of breath or wheezing) 30 Days Qty: 8.5 3RF atorvastatin 20 mg tablet 20 mg PO DAILY Qty: 90 1RF losartan 50 mg tablet 50 mg PO DAILY Qty: 90 1RF psyllium husk 3 gram/3 gram powder 30 g PO DAILY Qty: 340 0RF polyethylene glycol 3350 17 gram/dose powder 17 g PO DAILY Qty: 119 0RF docusate sodium 100 mg capsule 100 mg PO BID Qty: 20 0RF bisacodyl 10 mg suppository 10 mg RECTAL DAILY PRN (Reason: constipation) Qty: 12 0RF Linzess 145 mcg capsule 145 mcg PO QAM Qty: 90 0RF cholecalciferol (vitamin D3) 1,250 mcg (50,000 unit) capsule 1,250 mcg PO WEEKLY Qty: 14 1RF acetaminophen 500 mg capsule 1,000 mg PO Q6H PRN (Reason: pain) Qty: 30 0RF ibuprofen 600 mg tablet 600 mg PO TID PRN (Reason: pain) Qty: 30 0RF prochlorperazine maleate 5 mg Tablet 10 mg PO Q6H PRN (Reason: Nausea And Vomiting) Qty: 30 0RF metronidazole 500 mg Tablet 500 mg PO Q8HR Qty: 10 0RF ciprofloxacin HCl 500 mg Tablet 500 mg PO Q12HR Qty: 7 0RF Creon 24,000-76,000 -120,000 unit capsule,delayed release(DR/EC) 1 cap PO TID Qty: 180 5RF Rx Instructions: administer with meals and/or snacks trazodone 100 mg tablet See Rx Instructions .ROUTE .COMPLEX Qty: 90 1RF Dose Instruction: TAKE 1 TABLET BY MOUTH ONCE DAILY Rx Instructions: TAKE 1 TABLET BY MOUTH ONCE DAILY tramadol 50 mg tablet 50 mg PO Q6H PRN (Reason: pain) Qty: 30 0RF famotidine 20 mg tablet See Rx Instructions .ROUTE .COMPLEX Qty: 90 3RF Dose Instruction: TAKE 1 TABLET BY MOUTH DAILY Rx Instructions: TAKE 1 TABLET BY MOUTH DAILY Follow-up/Referrals: Dannie Tucker MD [Primary Care Provider] -
[2024-04-29 10:12] VITALS: BP 153/63; PULSE 67; RESP 18; TEMP 37.1; O2SAT 100
== END 2024-04-29 10:35 | disposition home or self-care (01) ==
PROVIDERS: Emergency Provider Nurse Practitioner Family; PCP Family Medicine
DX: L03.011 Cellulitis of right finger (principal); I10 Essential (primary) hypertension; J43.9 Emphysema, unspecified; F17.210 Nicotine dependence, cigarettes, uncomplicated
CPT/HCPCS: 10060; 99213; G0463

== ENCOUNTER 2024-09-05 15:01 | Emergency (ER) | payer MEDICARE, SELFPAY ==
[2024-09-05] VITALS (15 sets, daily range): BP systolic 108–148; BP diastolic 73–97; PULSE 72–86; RESP 12–20; TEMP 36.4–36.6; O2SAT 94–100
--- NOTE | ~2024-09-05 | XR_ITS ---
CHEST RADIOGRAPH CLINICAL HISTORY: SOB, PATIENT STATES LEFT LUNG HURTS . COMPARISON: Reference is made to a CT examination of the chest dated 02/14/2024 TECHNIQUE: Single portable view of the chest. FINDINGS The cardiomediastinal silhouette is unremarkable. The lungs are clear. Visualized osseous structures and soft tissues are unremarkable. IMPRESSION: No focal infiltrate or effusion. Reviewed, dictated and finalized at location A.
--- NOTE | 2024-09-05 15:32 | ECG_ITS ---
Test Date: 2024-09-05 16:18:56 Measurements Intervals [place] Rate: 77 P: 59 MS: 151 QRS: 71 QRSD: 86 T: 89 QT: 397 QTc: 451 Interpretive Statements SINUS RHYTHM WITH OCCASIONAL SUPRAVENTRICULAR PREMATURE COMPLEXES POSSIBLE LEFT ATRIAL ENLARGEMENT [-0.1mV P WAVE IN V1/V2] NONSPECIFIC ST & T-WAVE ABNORMALITY No previous ECG available for comparison Electronically Signed On 09-05-2024 19:15:44 CDT by Angie Hicks
--- NOTE | 2024-09-05 16:41 | ED.GENADULT ---
HPI - General Adult General Chief complaint: Shortness of Breath/Dyspnea Stated complaint: Left lung pain in back -SHOB Time Seen by Provider: 09/05/24 15:36 History of Present Illness HPI narrative: 69-year-old female with history of COPD that continues to smoke presents emergency department for evaluation for left-sided lung pain that is been ongoing for approximately 1 week. Patient denies any falls or injuries. Patient denies any other recent illness. Patient states pain has been ongoing for approximately 1 week and is worsened with movement coughing and deep inspiration. Has been taking Tylenol for pain control but has not been taking any anti-inflammatories. Patient has no prior history of coronary artery disease but states she has never had a stress test to patient denies any prior history of pulmonary embolism or DVT. Related Data Allergies Allergy/AdvReac Type Severity Reaction Status Date / Time gabapentin AdvReac Severe Loss of Verified 09/05/24 14:01 Balance codeine AdvReac Mild Nausea Verified 09/05/24 14:01 propoxyphene (From AdvReac Mild Nausea Verified 09/05/24 14:01 Darvocet-N) Review of Systems Review of Systems: All systems reviewed & are unremarkable except as noted in HPI and below PMFSH Past Medical History Medical History COVID-19 Difficulty sleeping Chills Hot flashes Numbness Dizziness Change in bowel function Difficulty breathing Irritable bowel syndrome (IBS) Hepatitis Constipation Chronic pancreatitis Hepatitis C She stated was treated with injections Anxiety Depression Bipolar 1 disorder Schizo affective schizophrenia Arthritis Chronic UTI GERD (gastroesophageal reflux disease) Emphysema, unspecified COPD (chronic obstructive pulmonary disease) Hypertension Hypercholesteremia Seizures Due to abrupt withdrawal of clonazepam Cataracts, bilateral Not yet extracted PVD (peripheral vascular disease) 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 Hx of hepatitis C History of heroin abuse SBO (small bowel obstruction) Diverticulitis large intestine Pancreatitis Tobacco dependence History of alcohol dependence Surgical History Surgical History History of colonoscopy 2021 History of colectomy With adhesiolysis History of hysterectomy Hx of tubal ligation History of colon resection H/O laparoscopy Hx of hysterectomy Family History Family History Mother Carcinoma of colon Cancer Diabetes mellitus Father Diabetes mellitus Cerebrovascular accident Hypertension Father Family history of diabetes mellitus in first degree relative Hypertension Cerebrovascular accident Mother Family history of diabetes mellitus in first degree relative Colon polyp Carcinoma of colon Sibling Hypertension Cancer Social History Social History Social History: The patient stated that she is down to about 4-5 cigarettes a day. Patient stated she continues to smoke marijuana but is not on a daily basis anymore like it used to be. She denies any alcohol. She formerly used heroin when she was younger. She is disabled. Her youngest son is Chase. The patient desires to be a full code. Smoking packs per day: 0.1 Smoking cigarettes per day: 2.0 Years smoked: 40 Smoking pack-years: 4.00 Smoking status: Current every day smoker Tobacco type: cigarettes Second hand tobacco smoke exposure: Yes Additional smoking assessment comments: She has smoked for over 40 years. Alcohol intake: never Alcohol use details: history of etoh dependence Substance use: never Substance use type: marijuana Other substance usage details: 3x Daily Do You Feel Safe in your Home?: Yes Lack of Transportation: YES Lack of Food: Never True Current Housing: I Have Housing Concerned About Future Housing: No Difficulty Paying Gas/Electric Bills: No Difficulty Paying for Meds: No Currently Unemployed: No Education: Grade School Difficulty w/ Childcare or Family Care: No Living arrangements: with family Additional living arrangements comments: son Chase lives with her Occupation/Education: other Additional occupation/education comments: disabled Gender identity (if verbalized by the patient): Female Spiritual care concerns: No Agree to blood products: Yes Exam Narrative: APPEARANCE: Cachectic HEAD: normocephalic, atraumatic. EYES: PERRLA/EOMI, conjunctivae clear. NOSE: Normal no drainage EARS:TMS clear with good light reflex. THROAT: Pharynx clear, no exudate. NECK: Supple. No adenopathy, no masses. RESPIRATORY: Airway patent, respirations nonlabored. Clear to auscultation bilaterally, no rales, rhonchi, wheezing. CARDIOVASCULAR: Regular rate and rhythm without murmurs rubs or gallops. ABDOMINAL: Soft, nontender, nondistended, normal bowel sounds MUSCULOSKELETAL: Moves all extremities. Strength/ROM intact, No edema, No calf tenderness. NEURO: Alert. Cranial nerves II through XII intact. Good gait. Good coordination SKIN: Warm, dry. Normal Color Course Vital Signs Vital signs: Vital Signs Temperature 97.9 F 09/05/24 15:54 Pulse Rate 81 09/05/24 15:54 Respiratory Rate 18 09/05/24 15:54 Blood Pressure 108/97 H 09/05/24 15:54 Pulse Oximetry 100 09/05/24 15:54 Oxygen Delivery Room Air 09/05/24 15:54 Temperature 97.5 F L 09/05/24 21:20 Pulse Rate 73 09/05/24 21:20 Respiratory Rate 16 09/05/24 21:20 Blood Pressure 132/90 09/05/24 21:20 Pulse Oximetry 98 09/05/24 21:20 Oxygen Delivery Room Air 09/05/24 20:15 Medical Decision Making MDM Narrative Medical decision making narrative: 69-year-old female presented emergency department for evaluation for left-sided chest pain. X-ray shows no acute cardiopulmonary abnormality. Patient had negative serial troponins. Patient was afebrile with no leukocytosis, D-dimer was not elevated. No acute abnormalities on her CMP suspect rib fracture versus rib contusion versus pleurisy. Low concern for ACS or pulmonary embolism. Patient was updated the results of the workup patient was comfortable plan for discharge and close follow-up. Differential Diagnosis Differential Diagnosis: COVID, RSV, influenza, COPD, emphysema, pulmonary embolism, pulmonary edema, COPD Vital Signs Vital Signs: Vital Signs Temperature 97.9 F 09/05/24 15:54 Pulse Rate 81 09/05/24 15:54 Respiratory Rate 18 09/05/24 15:54 Blood Pressure 108/97 H 09/05/24 15:54 Pulse Oximetry 100 09/05/24 15:54 Oxygen Delivery Room Air 09/05/24 15:54 Temperature 97.5 F L 09/05/24 21:20 Pulse Rate 73 09/05/24 21:20 Respiratory Rate 16 09/05/24 21:20 Blood Pressure 132/90 09/05/24 21:20 Pulse Oximetry 98 09/05/24 21:20 Oxygen Delivery Room Air 09/05/24 20:15 Lab Data 09/05/24 16:51 09/05/24 16:51 Labs: Lab Results 05/02/25 05/02/25 Range/Units 16:51 19:53 WBC 7.6 (4.5-10.0) K/mm3 RBC 4.97 (4.2-5.4) M/mm3 Hgb 13.3 (12.0-15.0) g/dL Hct 42.2 (37.0-47.0) % MCV 84.9 (80-100) fl MCH 26.8 (26-34) pg MCHC 31.5 L (32-36) g/dl RDW 13.8 (11.5-14.5) % Plt Count 357 D (150-375) k/mm3 MPV 10.5 H (7.4-10.4) fl Immature Gran % (Auto) 0.3 (0-0.5) % Neut % (Auto) 68.2 (45.5-73.1) % Lymph % (Auto) 22.1 (18.3-44.2) % [place] % (Auto) 7.6 (2.6-8.5) % Eos % (Auto) 1.0 (0-4.4) % Baso % (Auto) 0.8 (0.2-1.2) % Lymph # (Auto) 1.69 (0.9-3.2) K/mm3 [place] # (Auto) 0.6 (0.1-0.6) K/mm3 Eos # (Auto) 0.1 (0-0.3) K/mm3 Baso # (Auto) 0.1 (0.0-0.1) K/mm3 Abs Immat Gran (auto) 0.02 (0.00-0.031) K/mm3 Absolute Neuts (auto) 5.2 (1.3-6.7) K/mm3 Absolute Nucleated RBC 0.000 (0.0-0.012) K/mm3 Nucleated RBC % 0.0 (0.0-0.2) % D-Dimer 0.44 (<0.48) ug/mL Sodium 136 L (137-145) mmol/L Potassium 3.8 (3.4-5.0) mmol/L Chloride 100 (98-107) mmol/L Carbon Dioxide 24 (22-30) mmol/L Anion Gap 12 (4-12) mmol/L BUN 19 H D (7-17) mg/dL Creatinine 0.80 (0.7-1.0) mg/dL Estim Creat Clear Calc 47 ml/min Estimated GFR > 60 (59 - ) Glucose 90 (65-110) mg/dL Calcium 10.5 H (8.4-10.2) mg/dL Total Bilirubin 1.0 (0.2-1.3) mg/dL AST 33 (14-36) U/L ALT 20 (6-35) U/L Alkaline Phosphatase 79 (38-126) U/L Troponin I 0.019 0.025 D (0.000-0.034) ng/mL Total Protein 8.0 (6.3-8.2) g/dL Albumin 5.1 (3.5-5.1) g/dL Discharge Plan Discharge Clinical Impression: Left-sided chest wall pain Patient Disposition: Home Condition: Stable Instructions: Antibiotic Form, Chest Wall Pain (ED) Additional Instructions: Have close follow-up with your primary care physician for additional outpatient cardiac testing. Tylenol and ibuprofen for pain control. If you have any worsening symptoms then please call or return to the emergency department. Patient Language: Romanian Prescriptions: No Action psyllium husk 3 gram/3 gram powder 30 g PO DAILY Qty: 340 0RF polyethylene glycol 3350 17 gram/dose powder 17 g PO DAILY Qty: 119 0RF docusate sodium 100 mg capsule 100 mg PO BID Qty: 20 0RF albuterol sulfate 90 mcg/actuation HFA aerosol inhaler 2 puff inhalation Q4-6H PRN (Reason: shortness of breath or wheezing) 30 Days Qty: 8.5 3RF acetaminophen 500 mg capsule 1,000 mg PO Q6H PRN (Reason: pain) Qty: 30 0RF prochlorperazine maleate 5 mg Tablet 10 mg PO Q6H PRN (Reason: Nausea And Vomiting) Qty: 30 0RF Creon 24,000-76,000 -120,000 unit capsule,delayed release(DR/EC) 1 cap PO TID Qty: 180 5RF Rx Instructions: administer with meals and/or snacks tramadol 50 mg tablet 50 mg PO Q6H PRN (Reason: pain) Qty: 30 0RF cholecalciferol (vitamin D3) 1,250 mcg (50,000 unit) capsule 1,250 mcg PO WEEKLY Qty: 14 1RF atorvastatin 20 mg tablet 20 mg PO DAILY Qty: 90 1RF losartan 50 mg tablet 50 mg PO DAILY Qty: 90 1RF trazodone 100 mg tablet See Rx Instructions .ROUTE .COMPLEX Qty: 90 1RF Dose Instruction: TAKE 1 TABLET BY MOUTH ONCE DAILY Rx Instructions: TAKE 1 TABLET BY MOUTH ONCE DAILY Follow-up/Referrals: Dannie Tucker MD [Primary Care Provider] - Quality HEART score for chest pain patients History: slightly suspicious ECG: normal Age: > or = to 65 years Risk factors: 1 or 2 risk factors Troponin: < or = to 1x normal limit Heart score: 3
[2024-09-05 16:56] LABS: Basophils Absolute Auto 0.1 K/mm3 (0.0-0.1); Basophils Percent Auto 0.8 % (0.2-1.2); Eosinophils Absolute Auto 0.1 K/mm3 (0-0.3); Hematocrit 42.2 % (37.0-47.0); Hemoglobin 13.3 g/dL (12.0-15.0); Immature Granulocyte Absolute 0.02 K/mm3 (0.00-0.031); Immature Granulocyte Percent A 0.3 % (0-0.5); Lymphocytes Absolute Auto 1.69 K/mm3 (0.9-3.2); Lymphocytes Percent Auto 22.1 % (18.3-44.2); Mean Corpuscular HGB Conc 31.5 g/dl (32-36); Mean Corpuscular Hemoglobin 26.8 pg (26-34); Mean Corpuscular Volume 84.9 fl (80-100); Mean Platelet Volume 10.5 fl (7.4-10.4); Monocytes Absolute Auto 0.6 K/mm3 (0.1-0.6); Monocytes Percent Auto 7.6 % (2.6-8.5); Neutrophils Absolute Auto 5.2 K/mm3 (1.3-6.7); Neutrophils Percent Auto 68.2 % (45.5-73.1); Platelet Count Result 357 k/mm3 (150-375); Red Blood Count 4.97 M/mm3 (4.2-5.4); Red Cell Distribution Width 13.8 % (11.5-14.5); White Blood Count 7.6 K/mm3 (4.5-10.0)
[2024-09-05 17:09] LABS: Alanine Aminotransferase 20 U/L (6-35); Albumin Level 5.1 g/dL (3.5-5.1); Alkaline Phosphatase 79 U/L (38-126); Anion Gap 12 mmol/L (4-12); Aspartate Amino Transferase 33 U/L (14-36); Blood Urea Nitrogen 19 mg/dL (7-17); Calcium 10.5 mg/dL (8.4-10.2); Carbon Dioxide 24 mmol/L (22-30); Chloride 100 mmol/L (98-107); Estimated CRCL calculation 47 ml/min; Estimated Glomerular Filt Rate > 60; Glucose 90 mg/dL (65-110); Potassium 3.8 mmol/L (3.4-5.0); Sodium 136 mmol/L (137-145)
[2024-09-05 17:21] LABS: Troponin I 0.019 ng/mL (0.000-0.034)
[2024-09-05 17:25] LABS: D Dimer 0.44 ug/mL (<0.48)
[2024-09-05] MEDS: ALBUTEROL SULFATE NEB 2.5 MG/3 ML INH 5 MG INHALATION (17:41)
[2024-09-05] MEDS: KETOROLAC 15 MG/ML VIAL (*BKC) IV PUSH (17:58)
--- NOTE | 2024-09-05 19:45 | PC.NURSE ---
PT 3 hour trop ws drawn by RN and sent by tech. PT in bathroom at this time. Will perform EKG when pt returns.
--- NOTE | 2024-09-05 19:49 | ECG_ITS ---
Test Date: 2024-09-05 20:03:33 Measurements Intervals [place] Rate: 73 P: 64 WA: 163 QRS: 74 QRSD: 87 T: 83 QT: 399 QTc: 440 Interpretive Statements SINUS RHYTHM POSSIBLE LEFT ATRIAL ENLARGEMENT [-0.1mV P WAVE IN V1/V2] NONSPECIFIC ST & T-WAVE ABNORMALITY Compared to ECG 09/05/2024 16:18:56 No significant changes Electronically Signed On 09-06-2024 11:46:35 CDT by Andrea Snowden M.D.
[2024-09-05 20:22] LABS: Troponin I 0.025 ng/mL (0.000-0.034)
--- OUTSIDE RECORDS SUMMARY | 2024-09-06 14:47 | XMS_ITS | Clinical Summary ---
Author Organization [facility] Address [facility] [place] [address] Care Team Providers Care Financial Economist Name Role Phone Unavailable Primary Care Provider Unavailabl e Allergies Active Allergy Reactions Criticality Noted Date Comments Gabapentin Dizziness 07/12/2020 Prednisone Unknown 09/23/2020 Propoxyphene Nausea Only Low 01/14/2018 Steroids Anxiety Low 08/17/2020 Medications famotidine 20 MG tablet Take 20 mg by mouth 2 (two) times a day. 1 Active losartan 25 MG tabletIndications :Essential hypertension Take 1 tablet (25 mg total) by mouth daily. 90 tablet 1 1 Active hydroCHLOROthiazi de 12.5 MG capsuleIndication s:Essential hypertension Take 1 capsule (12.5 mg total) by mouth every morning. 90 capsule 1 1 Active atorvastatin 20 MG tabletIndications :Dyslipidemia Take 1 tablet (20 mg total) by mouth daily. 90 tablet 1 1 Active dicyclomine 20 MG tablet Take 20 mg by mouth every 6 (six) hours as needed. Active meloxicam 7.5 MG tabletIndications :Polyarthralgia Take 1 tablet (7.5 mg total) by mouth daily. 90 tablet 1 1 Active traZODone 100 MG tablet 1 Active diazePAM 5 MG tablet 1 Active cyclobenzaprine 10 MG tablet 1 Active omeprazole 40 MG capsule Take 40 mg by mouth 2 (two) times daily. 1 Active DULoxetine 20 MG capsuleIndication s:Depression with anxiety Take 1 capsule (20 mg total) by mouth daily. 60 capsule 1 1 Active cephALEXin 500 MG capsule Take 500 mg by mouth every 12 (twelve) hours. 1 Active ciprofloxacin 500 MG tablet 1 Active metroNIDAZOLE 500 MG tablet 1 Active phenazopyridine 100 MG tablet TAKE 1 TABLET BY MOUTH THREE TIMES DAILY FOR 6 DOSES NEEDED FOR PAIN 1 Active traMADol 50 MG tablet Take 50 mg by mouth every 6 (six) hours as needed. 1 Active Active Problems Problem Noted Date Diagnosed Date Adrenal adenoma 01/09/2020 Chronic obstructive lung disease ([facility]/ C) 11/27/2019 Diverticulitis 11/27/2019 Hypertensive disorder 11/27/2019 Pancreatitis ([facility]) 11/27/2019 Immunizations Immunization Administration Dates Next Due Fluzone High Dose - >Age 65 (Prefilled Syringe) 03/23/2020 PFIZER COVID-19 (ORIGINAL FO RMULATION, PURPLE CAP) mRNA, LNP-S, PF, 30 MCG/0.3 ML DOSE 08/02/2020 Pneumococcal (Pneumovax 23) 11/15/2020 Shingrix 04/22/2018,10/21/2017 Tdap (Generic) 03/14/2018 Family History Medical History Relation Comments Cancer Brother Diabetes Father Cancer Mother Diabetes Mother Hypertension Sister Relation Status Comments Brother Father Mother Sister Social History Tobacco Use Types Packs/Day Years Used Date Smoking Tobacco: Some Days Smokeless Tobacco: Never Alcohol Use Standard Drinks/Week Comments Not Currently 0 (1 standard drink = 0.6 oz pur e alcohol) Comments No Sex and Gender Information Value Date Recorded Sex Assigned at Not on file 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 Gender Identity Not on file Sexual Orientation Not on file Last Filed Vital Signs Vital Sign Reading Time Taken Comments Blood Pressure 138/84 12/23/2020 9:07 AM CDT Pulse 80 12/23/2020 9:07 AM CDT Temperature 36.7 C (98.1 F) 12/23/2020 9:07 AM CDT Respiratory Rate 26 10/08/2020 4:47 PM CDT Oxygen Saturation 97% 12/23/2020 9:07 AM CDT Inhaled Oxygen Concentration - - Weight 46.7 kg (103 lb) 12/23/2020 9:07 AM CDT Height 165.1 cm (5' 5 ) 12/23/2020 9:07 AM CDT Body Mass Index 17.14 12/23/2020 9:07 AM CDT Plan of Treatment Health Maintenance Due Date Last Done Comments Colorectal Cancer Screening Colonoscopy (10 Years) 1955 Mammogram Screening 1994 RSV Immunization or 60+ Years (1 - Risk 60-74 years 1-dose series) 2014 Annual Medicare Wellness Visit 2019 Dexa Scan (General) 2019 Pneumococcal Vaccine: 50+ Years (2 of 2 - PCV) 11/15/2021 11/15/2020 COVID-19 Vaccine (3 - 2023-2 5 season) 2024 08/23/2020, 08/02/2020 DTaP, Tdap and Td Vaccines ( 2 - Td or Tdap) 03/14/2028 03/14/2018 Zoster Vaccines Completed 04/22/2018, 10/21/2017 Hepatitis C Completed 10/15/2020, 09/23/2020 Meningococcal B Vaccine Aged Out No l onger eligible based on patient's age to complete this topic Meningococcal Vaccine Aged Out No ryan paula eligible based on patient's age to complete this topic RSV Immunizations Under 20 Months Aged Out No longer eligible b ased on patient's age to complete this topic Procedures Procedure Name Priority Date/Time Associated Diagnosis Comments HEPATITIS C ANTIBODY W/RFX TO HCV RNA Routine 10/15/2020 9:24 AM CDT from Last 3 Months or Most Recently Relevant to Health Maintenance Results * (ABNORMAL) HEPATITIS C ANTIBODY W/RFX TO HCV RNA (10/15/2020 9:24 AM CDT) HEPATITIS C AB REACTIVE(A) NON-REACTIV E [facility] SIGNAL TO CUTOFF 29.30(H) <1.00 [facility] [place] Comment: Based on this result, the sample will be tested for HCV RNA by a Nucleic Acid Amplification Test (NAAT) to determine if the patient has a current active infection. HEPATITIS C RNA PCR QNT <15 NOT DETECTED NOT DETECTED IU/mL [facility] HEP C RNA PCR QNT LOG <1.18 NOT DETECTED NOT DETECTED Log IU/mL [facility] Comment: HCV RNA is not detected. There is no laboratory evidence of a current active HCV infection. This pattern of results (undetectable HCV RNA combined with reactive HCV antibody) could be consistent with a resolved past infection if the clinical history is compatible with previous HCV exposure. However, if no previous exposure is suspected, the reactive HCV antibody could be a biological false positive result. Comment: [facility] [place] Comment: This test was performed using Real-Time Polymerase Chain Reaction. Reportable Range: 15 IU/mL to 100,000,000 IU/mL (1.18 Log IU/mL to 8.00 Log IU/mL). The analytical performance characteristics of this assay have been determined by [facility]. The modifications have not been cleared or approved by the FDA. This assay has been validated pursuant to the CLIA regulations and is used for clinical purposes. For more information on this test, go to: http://education.Talentwire/faq/DUX32z6 (This link is being provided for informational/ educational purposes only.) This assay is intended for use as an aid in the diagnosis of HCV infection and the management of HCV infected patients undergoing anti-viral therapy. 10/15/2020 9:24 AM CDT 10/15/2020 9:29 AM CDT Narrative [facility] - 10/18/2020 2:44 PM CDT FASTING:YES FASTING: YES Marc Patterson MD LABORATORY Final Res ult [facility] [address] [place] [address] from Last 3 Months or Most Recently Relevant to Health Maintenance Insurance [facility]
== END 2024-09-05 21:10 | disposition home or self-care (01) ==
PROVIDERS: Emergency Provider Emergency Medicine; PCP Family Medicine
DX: R07.89 Other chest pain (principal); J43.9 Emphysema, unspecified; I10 Essential (primary) hypertension; I73.9 Peripheral vascular disease, unspecified; I70.0 Atherosclerosis of aorta; E78.00 Pure hypercholesterolemia, unspecified; K86.1 Other chronic pancreatitis; K58.9 Irritable bowel syndrome, unspecified; K21.9 Gastro-esophageal reflux disease without esophagitis; F31.9 Bipolar disorder, unspecified; F20.9 Schizophrenia, unspecified; F41.9 Anxiety disorder, unspecified; F17.210 Nicotine dependence, cigarettes, uncomplicated; Z86.16 Personal history of COVID-19; Z86.19 Personal history of other infectious and parasitic diseases; Z90.49 Acquired absence of other specified parts of digestive tract; Z90.710 Acquired absence of both cervix and uterus; I49.1 Atrial premature depolarization; R94.31 Abnormal electrocardiogram [ECG] [EKG]; Z79.899 Other long term (current) drug therapy
CPT/HCPCS: 36415; 71045; 80053; 84484; 85025; 85380; 93005; 94640; 96374; 99284; J1885

== ENCOUNTER 2024-11-29 09:39 | Outpatient (CLI) | payer MEDICARE, SELFPAY ==
--- NOTE | ~2024-11-29 | DEXA_ITS ---
Bone Density Report Name: ALYSSA FRANCISCO Age: 69 Sex: Female Ethnicity: White Date of : 1955 Indication: postmenopausal; screening for osteoporosis; height loss; inflammatory bowel disease; prior fracture; hysterectomy; Referring Provider: CHYNA MALIN Study: Bone densitometry was performed. Exam Date: November 29, 2024 Accession number: [id number] Bone Density: Region BMD T-score Z-score Classification AP Spine(L1-L4) 0.914 -1.2 0.9 Osteopenia Femoral Neck (Left) 0.637 -1.9 -0.1 Osteopenia Total Hip (Left) 0.700 -2.0 -0.5 Osteopenia Femoral Neck (Right) 0.600 -2.2 -0.4 Osteopenia Total Hip (Right) 0.697 -2.0 -0.5 Osteopenia Total Hip Mean 0.698 -2.0 -0.5 Osteopenia World Health Organization criteria for BMD impression classify patients as: Normal (T-score at or above -1.0), Osteopenia (T-score between -1.0 and -2.5), or Osteoporosis (T-score at or below -2.5). 10-year Fracture Risk(1): Major Osteoporotic Fracture 18% Hip Fracture 6.7% Reported Risk Factors: [place] (), Neck BMD=0.600, BMI=18.9, previous fracture, smoking (1) FRAX(R) Version 3.08. Fracture probability calculated for an untreated patient. Fracture probability may be lower if the patient has received treatment. Clinical Information Provided by Patient: Has had a low trauma fracture Smokes Has used the following medications: Vitamin D, Calcium Has the following medical conditions: Inflammatory bowel diseases, Hysterectomy Patient maximum height was 65 Menopause Age: 33 Does not regularly consume dairy products Drinks caffeinated beverages Onset of menses at age 11 Number of children 3 Impression: The patient has low bone mass, based on the Right Femoral Neck T-score. The patient has an estimated ten-year risk of hip fracture of 6.7% and an estimated ten-year risk of major fracture of 18%, based on the WHO FRAX algorithm. The patient has risk factors, including: smoking, previous fracture. Discussion: BONE DENSITY IS LOW AT ONE OR MORE SKELETAL SITES. THE PATIENT'S BMD AND CLINICAL RISK FACTORS CONTRIBUTE TO THIS PATIENT'S INCREASED RISK OF FRACTURE. This patient's lowest T-score is low at one or more skeletal sites. It meets the World Health Organization's (WHO) criteria for ?low bone mass? (T-score between -1.0 and -2.5). The patient's 10-year risk of hip fracture as calculated by FRAX exceeds the threshold where pharmacological therapy is recommended by the National Osteoporosis Foundation (NOF). However, all treatment decisions require clinical judgment and consideration of individual patient factors, including patient preferences, comorbidities, previous drug use, risk factors not captured in the FRAX model (e.g., frailty, falls, vitamin D deficiency, increased bone turnover, interval significant decline in bone density) and possible under or overestimation of fracture risk by FRAX. The patient should follow a healthful lifestyle (good nutrition with adequate calcium and vitamin D, and appropriate weight-bearing exercise). Follow-Up: Consider a repeat BMD and Vertebral Fracture Assessment (VFA) exam in 2 years or sooner if medically necessary, to reassess this patient's status. Reported by: RADHA on 11/29/2024 10:18:00 AM. Reviewed, dictated and finalized at location A.
--- OUTSIDE RECORDS SUMMARY | 2024-11-29 09:41 | XMS_ITS | Clinical Summary ---
Author Organization [facility] Address Counts include [address] beds at the [facility] [place] [address] Care Team Providers Care Organizational Development Consultant Name Role Phone Unavailable Primary Care Provider [...] Adrenal adenoma 01/09/2020 Chronic obstructive lung disease ([facility] C) 11/27/2019 Diverticulitis 11/27/2019 Hypertensive disorder 11/27/2019 Pancreatitis ([facility]) 11/27/2019 Immunizations Immunization Administration Dates Next Due [...] on file 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 HEPATITIS C RNA PCR QNT <15 NOT DETECTED NOT DETECTED IU/mL [facility] HEP C RNA PCR QNT LOG <1.18 NOT DETECTED NOT DETECTED Log IU/mL [facility] Comment: HCV RNA is not detected. There [...] be a biological false positive result. Comment: [facility] [place] Comment: This test was performed using Real-Time Polymerase Chain Reaction. Reportable Range: 15 IU/mL to 100,000,000 IU/mL (1.18 Log IU/mL to 8.00 Log IU/mL). The analytical performance characteristics of this assay have been determined by [facility]. The modifications have not been cleared or approved by the FDA. This assay has been validated pursuant to the CLIA regulations and is used for clinical purposes. For more information on this test, go to: http://education.Pudding Media/faq/EZM54x1 (This link is being provided for informational/ [...] LABORATORY Final Res ult [facility] [address] [place] [address] from Last 3 Months or Most Recently Relevant to Health Maintenance Insurance [facility]
== END 2024-11-29 09:40 | disposition home or self-care (01) ==
LOC: ANHIMG 09:40
PROVIDERS: PCP Family Medicine; Visit Provider Family Medicine
DX: N95.9 Unspecified menopausal and perimenopausal disorder (principal)
CPT/HCPCS: 77080

== ENCOUNTER 2024-12-01 11:43 | Outpatient (CLI) | payer MEDICARE, SELFPAY ==
--- NOTE | ~2024-12-01 | XR_ITS ---
XR hip LT min 2V 12/01/2024 12:08 Indication: Left hip pain Procedure: 2 views left hip Comparison: 05/09/2023 Findings: No fracture, subluxation or dislocation. No soft tissue abnormality. No foreign bodies. Impression: 1: No acute fracture, subluxation or dislocation. Reviewed, dictated and finalized at location B. Impression: 1: No acute fracture, subluxation or dislocation.
--- NOTE | ~2024-12-01 | XR_ITS ---
XR lumbar spine 2-3V 12/01/2024 12:08 Indication: Low back pain Procedure: 3 views lumbar spine Comparison: Comparison to multiple prior studies sequentially, with oldest reviewed study dated 12/17. Findings: There is mild superior endplate compression deformities of L2 and L3, likely chronic. There is multilevel facet hypertrophy with grade 1 degenerative spondylolisthesis at L4-5. There is disc n arrowing at all lumbar levels. Osteopenia. There is atherosclerosis of the aorta. There is levoscolio sis. There are splenic arterial calcification. Impression: 1: Moderate lumbar spondylosis with levoscoliosis. 2: Mild likely chronic superior endplate compression deformities of L2 and L3. Reviewed, dictated and finalized at location A. Impression: 1: Moderate lumbar spondylosis with levoscoliosis. 2: Mild likely chronic superior endplate compression deformities of L2 and L3.
== END 2024-12-01 11:44 | disposition home or self-care (01) ==
LOC: MICIMG 11:44
PROVIDERS: PCP Family Medicine; Visit Provider Family Medicine
DX: M54.50 Low back pain, unspecified (principal); M79.18 Myalgia, other site
CPT/HCPCS: 72100; 73502

== ENCOUNTER 2024-12-24 08:21 | Outpatient (CLI) | payer MEDICARE, SELFPAY ==
--- NOTE | ~2024-12-24 | MR_ITS ---
MRI of the lumbar spine Clinical History: Compression fracture Technique: Axial T2-weighted images, and sagittal T1-weighted, T2-weighted, and T2 fat-sat images were acquired. COMPARISON: 02/14/2024 Findings: No acute fracture identified. Stable grade 1 retrolisthesis of L2 over L3. No suspicious bone marrow signal abnormality seen. At L1-L2, there is moderate degenerative disc narrowing. There is mild disc bulge with moderate facet arthropathy. No central canal stenosis. There is mild bilateral neural foraminal narrowing, left worse than right. At L2-L3, there is mild degenerative disc narrowing. There is mild disc bulge with moderate facet arthropathy. No central canal stenosis. There is moderate right neural foraminal narrowing. Left neural foramen minimally narrowed. At L3-L4, there is diffuse disc bulge with advanced facet arthropathy. No central canal stenosis. There is severe right neural foraminal narrowing, and mild to moderate left neural foraminal narrowing. At L4-L5, there is disc bulge with severe facet arthropathy. No central canal stenosis. There is mild right neural foraminal narrowing. Left neural foramen preserved. At L5-S1, there is mild disc bulge with severe facet arthropathy. No central canal stenosis. There is moderate bilateral neural foraminal narrowing. Paravertebral soft tissues are unremarkable. Impression: Multilevel moderate degenerative spondylitic changes, as detailed above, similar overall to prior exam. Stable grade 1 retrolisthesis of L2 over L3. Reviewed, dictated and finalized at [facility]. Impression: Multilevel moderate degenerative spondylitic changes, as detailed above, simila r overall to prior exam. Stable grade 1 retrolisthesis of L2 over L3.
== END 2024-12-24 08:22 | disposition home or self-care (01) ==
LOC: MICIMG 08:22
PROVIDERS: PCP Family Medicine; Visit Provider Family Medicine
DX: M47.816 Spondylosis without myelopathy or radiculopathy, lumbar region (principal); M43.16 Spondylolisthesis, lumbar region; S32.000A Wedge compression fracture of unspecified lumbar vertebra, initial encounter for closed fracture; X58.XXXA Exposure to other specified factors, initial encounter
CPT/HCPCS: 72148

== ENCOUNTER 2025-04-14 09:17 | Outpatient (CLI) | payer MEDICARE, SELFPAY ==
--- NOTE | ~2025-04-14 | MM_ITS ---
EXAMINATION: MM screening claudine BI w claudio HISTORY: Screening. TECHNIQUE: Craniocaudal and mediolateral oblique 3-D tomosynthesis images were obtained and synthetic 2-D images were generated. CAD analysis was submitted and interpreted. COMPARISON: None available. BREAST PARENCHYMAL COMPOSITION: Not Dense: There are scattered areas of fibroglandular FINDINGS: No suspicious masses are seen. There are no suspicious calcifications. No unexplained architectural distortion is seen. There are no skin or nipple abnormalities identified. There is no adenopathy seen on the images submitted. IMPRESSION: No mammographic evidence to suggest malignancy is seen. The patient may return to screening mammography as per ACR guidelines. BI-RADS 1 - Negative. Reviewed, dictated and finalized at location C. T MAIL CLERK
== END 2025-04-14 09:18 | disposition home or self-care (01) ==
LOC: ANHFOHIMG 09:18
PROVIDERS: PCP Family Medicine; Visit Provider Family Medicine
DX: Z12.31 Encounter for screening mammogram for malignant neoplasm of breast (principal)
CPT/HCPCS: 77063; 77067

== ENCOUNTER 2025-04-14 09:57 | Outpatient (CLI) | payer MEDICARE, SELFPAY ==
--- NOTE | ~2025-04-14 | CT_ITS ---
EXAMINATION: CT lung screening DATE: 04/14/2025 10:13 INDICATION: Personal history of nicotine dependence TECHNIQUE: Computed tomography (CT) of the chest was performed without intravenous contrast. Additional 3D reconstructions utilizing coronal maximum intensity projection (MIP) were performed. Automated exposure control and iterative reconstruction technique were employed. The dose-length product was 37 .46 mGy-cm. COMPARISON: 02/14/2024 FINDINGS: Moderate emphysema. Stable appearance of chronic mild left and moderate right apical pleural-parenchymal scarring. No interval change in small regions of tree-in-bud opacity with several <4 mm pulmonary nodules in the lateral segment of the right middle lobe. Also unchanged is focal mild bronchiectasis with some endobronchial likely mucous plugging with <4 mm nodules at the inferior lingula. There are a few additional scattered <4 mm nodules in the bilateral lower lobes. No new or enlarging pulmonary nodules, pneumonia, pulmonary edema or pleural effusion. Heart size normal. Atherosclerotic coronary artery calcific location. No pericardial effusion. Thoracic aorta is normal in caliber. Visualized upper abdomen is unremarkable. Chronic mild T11 superior endplate compression fracture. IMPRESSION: 1. . Lung-RADS category 2: Benign appearance or behavior. Continue annual screening with noncontrast low-dose chest CT in 12 months. Reviewed, dictated and finalized at location A. CARE AIDE TEACHER IMPRESSION: 1. . Lung-RADS category 2: Benign appearance or behavior. Continue annual scree robin with noncontrast low-dose chest CT in 12 months.
== END 2025-04-14 09:58 | disposition home or self-care (01) ==
LOC: MICIMG 10:00
PROVIDERS: PCP Family Medicine; Visit Provider Family Medicine
DX: Z12.2 Encounter for screening for malignant neoplasm of respiratory organs (principal); Z87.891 Personal history of nicotine dependence
CPT/HCPCS: 71271